=== PATIENT | female | born 1975 | race Caucasian/White ===

== ENCOUNTER 2017-08-05 07:16 | Day surgery (SDC) | payer OTHER ==
[2017-08-05] MEDS ORDERED: IRON SUCROSE INJECTION 100 MG in SODIUM CHLORIDE 100 ML IVPB ONE (09:00)
[2017-08-05] MEDS ORDERED: IRON SUCROSE INJECTION 200 MG in SODIUM CHLORIDE 100 ML IVPB ONE (09:00)
[2017-08-05 12:25] VITALS: TEMP 98.1; BMI 46.4
[2017-08-05 12:50] VITALS: BP 141/96; PULSE 76
== END 2017-08-05 13:28 | disposition home or self-care (01) ==
LOC: JONCNONCHE 07:16 → J7W 10:49 → JONCNONCHE 13:27
PROVIDERS: ATTEND Internal Medicine Hematology & Oncology
PROC: 3E033GC Introduction of Other Therapeutic Substance into Peripheral Vein, Percutaneous Approach (ICD-10-PCS; principal; 2017-08-05)
DX: D50.9 Iron deficiency anemia, unspecified (principal)
CPT/HCPCS: J1756

== ENCOUNTER 2018-03-16 21:51 | Emergency (ER) | payer OTHER ==
--- NOTE | 2018-03-16 21:55 | PDOC ---
Rapid Medical Evaluation Time Seen by Provider: 03/16/18 21:53 Medical Evaluation: Allergies Allergy/AdvReac Type Severity Reaction Status Date / Time No Known Allergies Allergy Verified 07/20/17 20:18 03/16/18 21:53 I have performed a brief in-person evaluation of this patient. The patient presents with a chief complaint of: coughing for 2 weeks Pertinent physical exam findings: Lungs CTAB. Speaking full sentences. I have ordered the following: urine preg, cxr The patient will proceed to the ED for further evaluation. Discharge Disposition - Diagnosis Cough - Referrals - Patient Instructions - Post Discharge Activity
[2018-03-16 22:03] VITALS: BP 146/78; PULSE 90; TEMP 98.9; BMI 46.4
--- NOTE | 2018-03-16 23:43 | PDOC ---
History of Present Illness - General Chief Complaint: Cold Symptoms Stated Complaint: CHEST PAIN Time Seen by Provider: 03/16/18 21:53 History Source: Patient Exam Limitations: No Limitations - History of Present Illness Initial Comments: 03/16/18 23:44 42-year-old woman without significant past medical history presents emergency Department with a dry unproductive cough for the past 2 weeks. Patient has been evaluated by urgent care and her primary doctor and told she has a viral illness. Patient states she is concerned that her cough has not stopped over the past 2 weeks and is seeking a third opinion. She denies any fevers, chills, chest pain, abdominal pain, nausea, vomiting. Past History - Past Medical History Allergies/Adverse Reactions: Allergies Allergy/AdvReac Type Severity Reaction Status Date / Time No Known Allergies Allergy Verified 03/16/18 22:03 Home Medications: Ambulatory Orders Acetaminophen W/ Codeine #3 [Tylenol # 3 -] 1 tab PO HS #4 tablet MDD 1 Benzonatate [Tessalon Pearls -] 200 mg PO TID #42 cap 03/17/18 Anemia: Yes COPD: No - Surgical History Cholecystectomy: Yes (2011) Orthopedic Surgery: Yes (Left wrist 2011) - Suicide/Smoking/Psychosocial Hx Smoking History: Never smoked Hx Alcohol Use: Yes (socially) Drug/Substance Use Hx: No Hx Substance Use Treatment: No Review of Systems - Review of Systems Able to Perform ROS?: Yes Is the patient limited Faroese proficient: No Constitutional: No: Symptoms Reported HEENTM: No: Symptoms Reported Respiratory: Yes: See HPI Cardiac (ROS): No: Symptoms Reported ABD/GI: No: Symptoms Reported : No: Symptoms Reported Musculoskeletal: No: Symptoms Reported Integumentary: No: Symptoms Reported Neurological: No: Symptoms reported Endocrine: No: Symptoms Reported Hematologic/Lymphatic: No: Symptoms Reported *Physical Exam - Vital Signs Last Vital Signs Temp Pulse Resp BP Pulse Ox 98.9 F 90 18 146/78 100 03/16/18 22:01 03/16/18 22:01 03/16/18 22:01 03/16/18 22:01 03/16/18 22:01 - Physical Exam General Appearance: Yes: Appropriately Dressed. No: Apparent Distress HEENT: positive: TMs Normal, Other (cobblestoning present in posterior oropharynx). negative: Pharyngeal Erythema, Tonsillar Exudate, Tonsillar Erythema Neck: positive: Trachea midline, Supple Respiratory/Chest: positive: Lungs Clear, Normal Breath Sounds. negative: Respiratory Distress, Accessory Muscle Use Cardiovascular: positive: Regular Rhythm, Regular Rate. negative: Murmur Gastrointestinal/Abdominal: positive: Normal Bowel Sounds, Soft. negative: Tender Musculoskeletal: positive: Normal Inspection. negative: CVA Tenderness Extremity: positive: Normal Inspection Integumentary: positive: Normal Color, Dry, Warm Neurologic: positive: Alert, Normal Response ED Treatment Course - ADDITIONAL ORDERS Additional order review: Laboratory Results 03/16/18 22:30 Urine HCG, Qual Negative - RADIOLOGY Radiology Studies Ordered: Category Date Time Status CHEST PA & LAT [RAD] Stat Radiology 03/16/18 21:56 Taken Medical Decision Making - Medical Decision Making 03/16/18 23:42 A/P: 42-year-old woman with 2 weeks of dry nonproductive cough Lungs clear to auscultation bilaterally Oropharynx clear without erythema or exudates. Patient not taking any medication. Patient is been seen by her primary doctor in urgent care as well as she has a viral illness and that the cough will resolve. Coughing no correlation with oral intake so less likely related to GERD. She will cobblestoning in the posterior oropharynx this is likely upper respiratory infection with irritated airways related to postnasal mucus drip. Urine , chest x-ray Chest x-ray as read by me: Angles clear. No pneumothorax is identified. No focal consolidations or infiltrates are noted. Cardiac silhouette is within normal limits. 03/17/18 01:04 Patient's cough is improved after receiving Tylenol 3. I will discharge the patient home with prescription for Tylenol 3 for the overnight and Tessalon Perles for daytime. Patient has an appointment with her primary doctor on Tuesday for reevaluation of symptoms. *DC/Admit/Observation/Transfer Diagnosis at time of Disposition: Cough Upper respiratory infection Qualifiers: URI type: unspecified URI Qualified Code(s): J06.9 - Acute upper respiratory infection, unspecified - Discharge Dispostion Disposition: HOME Condition at time of disposition: Fair Decision to Admit order: No - Prescriptions Prescriptions: Acetaminophen W/ Codeine #3 [Tylenol # 3 -] 1 tab PO HS #4 tablet MDD 1 Benzonatate [Tessalon Pearls -] 200 mg PO TID #42 cap - Referrals Referrals: Philipp Gonzalez MD [Primary Care Provider] - - Patient Instructions Additional Instructions: Rest, drink lots of fluids: Teas, water, soups, Pedialyte Saltwater gargles Steamy showers/seem to face break up mucus Avoid contact with others until fevers and cough resolved Lots of handwashing and good hygiene Continue [id number] medications for symptomatic relief Tylenol or Motrin for fever and pain Tylenol No. 3 one tablet at bedtime to help control cough while sleeping. Tessalon Perles 200 mg 3 times a day as needed for cough Followup with private physician in one to 2 days as needed Return to emergency department for worsened symptoms, fevers, dehydration - Post Discharge Activity
--- NOTE | 2018-03-16 23:56 | PDOC ---
*Physical Exam - Vital Signs Last Vital Signs Temp Pulse Resp BP Pulse Ox 98.9 F 90 18 146/78 100 03/16/18 22:01 03/16/18 22:01 03/16/18 22:01 03/16/18 22:01 03/16/18 22:01 ED Treatment Course - ADDITIONAL ORDERS Additional order review: Laboratory Results 03/16/18 22:30 Urine HCG, Qual Negative Medical Decision Making - Medical Decision Making 03/16/18 23:56 agree with care from TOREY Whittington *DC/Admit/Observation/Transfer Diagnosis at time of Disposition: Cough - Referrals Referrals: Philipp Gonzalez MD [Primary Care Provider] - - Patient Instructions - Post Discharge Activity
[2018-03-16] MEDS ORDERED: ACETAMINOPHEN WITH CODEINE 300MG/30MG TABLET PO ONE (23:58)
[2018-03-17] MEDS ORDERED: ACETAMINOPHEN WITH CODEINE 300MG/30MG TABLET ONE ×2 (00:16→00:20)
== END 2018-03-17 01:19 | disposition home or self-care (01) ==
LOC: JER 21:51 → JERFT 21:51 → JER 03-17 01:19
DX: J06.9 Acute upper respiratory infection, unspecified (principal)
CPT/HCPCS: 71046-TC-FY; 84703; 99281-25

== ENCOUNTER 2018-07-14 17:59 | Inpatient (IN) | payer OTHER ==
--- NOTE | 2018-07-14 18:06 | PDOC ---
History of Present Illness - General Chief Complaint: Shortness of Breath Stated Complaint: ASTHMA/FALL Time Seen by Provider: 07/14/18 18:05 - History of Present Illness Initial Comments: Karen Long is a 42yo woman with a PMH of asthma and chronic anemia (cause unclear) who presents with worsening SOB and now lightheadedness for three weeks. She reports that yesterday she became dizzy, her vision darkened, and she fainted when walking up the stairs. She hit the left side of her head, left hip, and left kebede and notes continued soreness and bruising. Ms Long reports that she does not have asthma symptoms most of the year, but always has attacks in the fall since she was a child. Her current episode started about 3 weeks ago and was initially controlled with albuterol nebulizer treatments at home. However, her symptoms have progressively worsened to the point that she has been needing treatments every 45 minutes throughout the day. Within the past few days, she has also developed a productive cough with yellowish sputum. She denies nasal congestion, runny nose, sore throat, fevers, shivering chills, nausea, vomiting, or diarrhea. She has no known sick contacts. 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 Ms Long states that she gets prednisone for asthma exacerbations every fall, and she has been hospitalized multiple times but never intubated. Ms Long additionally reports that she has been feeling fatigued and dizzy over the past few days. She became very lightheaded when walking up the stairs yesterday. Her vision darkened, and she reports losing consciousness and falling to the ground. She struck the left side of her body on the floor including hitting her head. She denies any difficulty walking, focal neurological symptoms, or additional LOC since the fall. She reports that her fall was witnessed by neighbors who helped her afterwards. Past History - Past Medical History Allergies/Adverse Reactions: Allergies Allergy/AdvReac Type Severity Reaction Status Date / Time No Known Allergies Allergy Verified 07/14/18 18:00 Home Medications: Ambulatory Orders Albuterol 0.083% Nebulizer Smitha [Ventolin 0.083% Nebulizer Soln -] 1 neb NEB Q4H PRN 03/20/18 Acetaminophen [Tylenol .Regular Strength -] 650 mg PO Q6H PRN #30 tablet Anemia: Yes Asthma: Yes COPD: No - Surgical History Cholecystectomy: Yes (2011) Orthopedic Surgery: Yes (Left wrist 2011) - Suicide/Smoking/Psychosocial Hx Smoking History: Never smoked Have you smoked in the past 12 months: No Hx Alcohol Use: No Drug/Substance Use Hx: No Substance Use Type: None Hx Substance Use Treatment: No Review of Systems - Review of Systems Comments:: General: No fevers, no chills, no weight or appetite change, no malaise HEENT: No changes in vision, no changes in hearing, no congestion, no sore throat CV: No chest pain, no palpitations, no LE edema. +Syncope Pulm: See HPI GI: No nausea or vomiting, no change in bowel habits, no melena : No frequency, no urgency, no dysuria Musc: No back pain, no joint swelling, no recent injury Skin: No rash, no lesions, no erythema Endo: No excessive thirst, no heat/cold intolerance Heme: No unusual bruising or bleeding, no swollen glands Neuro: No speech changes, no numbness/tingling, no focal weakness Vasc: No claudication Psych: No recent change in mood, no SI or HI *Physical Exam - Physical Exam Comments: General: Uncomfortable but in no acute distress HEENT: PERRL, EOMI, MMM, voice normal, normal neck ROM, no LAD. L parietal head with tender, edematous area approx 5cm in diameter. No abrasion, lesion or bleeding. Cards:Tachycardic and regular Pulm: Mildly tachypnic on room air. Lungs clear b/l without active wheezing or crackles appreciated. Distant breath sounds. Abd: Soft, nontender, nondistended : No CVA tenderness Ext: Bruising to L kebede and L forearm. L posterior hip TTP. No abrasions or lacerations. No LE edema. ROM intact. Strength 5/5 and equal bilaterally Vasc: Extremities WWP. Skin: Bruising to L kebede and L forearm Neuro: A&Ox3, CN grossly intact, normal speech, motor/sensory grossly intact and symmetric Psych: Mood appropriate to situation Procedures - Bedside Ultrasound Bedside Ultrasound: Skin Other: IV placement. 20g in R AC ED Treatment Course - LABORATORY CBC & Chemistry Diagram: 07/14/18 19:54 07/14/18 19:54 Medical Decision Making - Medical Decision Making 07/14/18 20:09 Karen Long is a 42yo woman with a PMH of asthma and chronic anemia who presents with 3 weeks of worsening SOB and now with lightheadedness and an episode of syncope yesterday. - Consistent with previous episodes of asthma exacerbation and with previous symptomatic anemia, per patient - Given productive cough, also concerning for viral or bacterial URI though currently afebrile - Reporting some chest discomfort; need to r/o ACS as a cause of syncope and SOB - CBC, CMP, trop, UA, urine preg, T&S, CXR, EKG, and flu swab ordered - Duonebs, solumedrol, acetaminophen for symptoms - Re-evaluate following nebs 07/14/18 21:03 - Lungs clear to ausculatation b/l with good breath sounds following nebs - Continue tachycardia to 120's. Sats in mid-90's on RA - Slight leukocytosis to 13, at baseline - Hgb 7.7 at baseline - No clear cause of tachycardia, SOB, low O2 sats, syncope. No recent travel, immobilization, use of OCP's, personal CA history but CT chest with contrast ordered to r/o PE. - CT head due to palpable edema on L parietal skull - Xray L pelvis to r/o fracture. Pt able to point to one location likely along PSIS - 2mg morphine ordered for continued pain 05/29 after acetaminophen 07/14/18 22:28 - IV in left hand could not be used for IV contrast - US guided 20g IV placed in R AC. Flushes easily 07/14/18 23:26 - CT head negative - CT chest with FAY pneumonia - Ceftriaxone and azithromycin ordered - Page to hospitalist service for admission for community acquired pneumonia and syncope To be admitted to medicine service under Dr Airas. Spoke to Dr Bates. Seen and discussed with Dr Beatty. Sindy Ross PGY1 *DC/Admit/Observation/Transfer Diagnosis at time of Disposition: Syncope Qualifiers: Syncope type: unspecified Qualified Code(s): R55 - Syncope and collapse - Discharge Dispostion Decision to Admit order: Yes - Referrals - Patient Instructions - Post Discharge Activity
[2018-07-14] MEDS ORDERED: ALBUTEROL SO4 2.5/IPRATROPIUM 0.5 INH SOL 3 ML VIAL.NEB. NEB ONE ×2 (18:29→18:38)
[2018-07-14] MEDS ORDERED: ACETAMINOPHEN 500 MG TABLET (FP) PO ONE (18:36)
[2018-07-14] MEDS ORDERED: methylPREDNISolone NA SUCC 125 MG/2 ML VIAL IVPB ONE (18:36)
[2018-07-14] MEDS ORDERED: methylPREDNISolone NA SUCC 125 MG/2 ML VIAL ONE (18:38)
[2018-07-14 20:04] LABS: BASO % 0.5 % (0-2.0); EOS % 0.8 % (0-4.5); HEMATOCRIT 25.4 % (32.4-45.2); HEMOGLOBIN 7.7 GM/dL (10.7-15.3); LYMPH % 13.1 % (8-40); MCHC 30.2 g/dl (32.0-36.0); MEAN CELL VOLUME 72.9 fl (80-96); MEAN PLT VOLUME 6.8 fl (7.5-11.1); MONO % 3.9 % (3.8-10.2); NEUT % 81.7 % (42.8-82.8); PLATELET COUNT 308 K/MM3 (134-434); RBC 3.49 M/mm3 (3.60-5.2); RDW 18.7 % (11.6-15.6); WHITE BLOOD COUNT 13.2 K/mm3 (4.0-10.0)
--- NOTE | 2018-07-14 20:33 | PDOC ---
Attending Attestation - HPI HPI: 07/14/18 21:36 The patient is a 42 year old female with a significant PMH of asthma and anemia who presents to the emergency department with shortness of breath for 3 weeks. The patient reports that she has been experiencing some associated cough for 2 days as well. She reports that she had a syncopal episode yesterday with a prior episode of lightheadedness and weakness when walking up a stair near her home. The patient reports loc and hitting her head. She denies any follow up since the incident. She denies any other symptoms. She denies any fever, chills, nausea, vomiting, diarrhea, or urinary symptoms. She denies any headache , recent travel, leg pain , smoking or vomiting. The patient denies any other complaints. - Physicial Exam PE: 07/14/18 21:36 GENERAL: Awake, alert, and fully oriented, in no acute distress HEAD: No signs of trauma EYES: PERRLA, EOMI, sclera anicteric, conjunctiva clear ENT: Auricles normal inspection, hearing grossly normal, nares patent, oropharynx clear without exudates. Moist mucosa NECK: Normal ROM, supple, no lymphadenopathy, JVD, or masses LUNGS: Breath sounds equal, clear to auscultation bilaterally. No wheezes, and no crackles HEART:(+) tachy. Regular rhythm, normal S1 and S2, no murmurs, rubs or gallops ABDOMEN: obese. Soft, nontender, normoactive bowel sounds. No guarding, no rebound. No masses EXTREMITIES: Normal range of motion, no edema. No clubbing or cyanosis. No cords, erythema, or tenderness NEUROLOGICAL: Cranial nerves II through XII grossly intact. Normal speech, normal gait SKIN: Warm, Dry, normal turgor, no rashes or lesions noted. Documentation prepared by Cira Sharif, acting as medical voucher clerk for Tram Beatty MD <Cira Sharif - Last Filed: 07/14/18 21:36> - Resident Resident Name: Sindy Ross - ED Attending Attestation I have performed the following: I have examined & evaluated the patient, The case was reviewed & discussed with the resident, I agree w/resident's findings & plan, Exceptions are as noted - Medical Decision Making 07/14/18 20:32 I, Dr. Tram Beatty, DO, attest that this document has been prepared under my direction and personally reviewed by me in its entirety. I further attest, that it accurately reflects all work, treatment, procedures and medical decision -making performed by me. 07/14/18 21:01 a/p: 42yo female with a syncopal episode yesterday and sob/cp today -pt states hx of chronic anemia but has never had a syncopal episode before -states she feels palpitations and chest pain - thought it was her asthma -no wheezing on exam -clear lungs -concern given tachycardia, chest pain, and syncope for PE -will send labs, ekg, cxr, CT PE -will give nebs and steroids for poss asthma exacerbation -will continue to monitor 07/14/18 23:23 pt with PNA on ct will start abx, will send cultures will admit for tachycardia and pna microblog sent to [facility] for admission 07/15/18 00:[address] will admit for pna, syncope, asthma exacerbation 07/15/18 00:09 resident discussed the case with IM who accepts pt to service <Tram Beatty - Last Filed: 07/15/18 00:09> Heart Score/ECG Review - ECG Intrepretation Comment:: 07/14/18 21:04 sinus tach at 101, nl axis, nl interval, lvh, no acute st/t wave findings <Tram Beatty - Last Filed: 07/15/18 00:09>
[2018-07-14 20:39] LABS: ALBUMIN 3.1 g/dl (3.4-5.0); ALK PHOS 87 U/L (45-117); ANION GAP 12 MMOL/L (8-16); BILIRUBIN,TOTAL 0.2 mg/dL (0.2-1); BLOOD UREA NITROGEN 18 mg/dL (7-18); CALCIUM 8.1 mg/dL (8.5-10.1); CHLORIDE 110 mmol/L (98-107); CO2 22 mmol/L (21-32); CREATININE 0.5 mg/dL (0.55-1.3); GLUCOSE,RANDOM 108 mg/dL (74-106); POTASSIUM 3.8 mmol/L (3.5-5.1); SGOT/AST 14 U/L (15-37); SGPT/ALT 17 U/L (13-61); SODIUM 144 mmol/L (136-145); TOT PROT 6.7 g/dl (6.4-8.2)
[2018-07-14 20:51] LABS: URINE APPEARANCE CLEAR; URINE BILIRUBIN NEGATIVE (<2.0 mg/dL); URINE COLOR YELLOW; URINE GLUCOSE (UA) NEGATIVE (NEGATIVE); URINE KETONE NEGATIVE (NEGATIVE); URINE LEUK ESTERASE NEGATIVE (NEGATIVE); URINE NITRITE NEGATIVE (NEGATIVE); URINE PROTEIN NEGATIVE (NEGATIVE); URINE UROBILINOGEN NEGATIVE mg/dL (0.2-1.0)
[2018-07-14 20:52] LABS: HCG,QUALITATIVE URINE Negative
[2018-07-14] MEDS ORDERED: morphine CARPU-JECT 2 MG/1 ML DISP.SYRIN IVPUSH ONE (21:03)
[2018-07-14] MEDS ORDERED: MORPHINE SULFATE 2 MG/ML VIAL ONE (21:07)
[2018-07-14] MEDS ORDERED: CEFTRIAXONE 1,000 MG in DEXTROSE 5%-WATER - 50 ML IVPB ONE (23:22)
[2018-07-14] MEDS ORDERED: AZITHROMYCIN IVPB 500 MG in DEXTROSE 5%-WATER - 250 ML IVPB ONE (23:22)
[2018-07-14] MEDS ORDERED: SODIUM CHLORIDE 0.9% 1000 ML INFUS.BAG IV ONE (23:23)
[2018-07-15] MEDS ORDERED: AZITHROMYCIN IVPB 500 MG/250 ML BAG IVPB ONE (00:19)
[2018-07-15] MEDS ORDERED: CEFTRIAXONE 1 GM/50 ML BAG ONE ×2 (00:19→09:11)
--- NOTE | 2018-07-15 04:05 | PN ---
Teaching Attending Note Name of Resident: Lamberto Bates ATTENDING PHYSICIAN STATEMENT I saw and evaluated the patient. I reviewed the resident's note and discussed the case with the resident. I agree with the resident's findings and plan as documented. SUBJECTIVE: OBJECTIVE: ASSESSMENT AND PLAN: this is a 42 y/o F with PMH asthma who presented to ED with asthma exacerbation and syncope. #Asthma -well controlled at this moment -no wheezing appreciated -Nebs prn #Syncope possible due to vasovagal patient was coughing prior to the episode - monitor on tele neurology evaluation #Chronic anemia -at baseline
--- NOTE | 2018-07-15 04:21 | HP ---
CHIEF COMPLAINT: SOB, LOC PCP: HISTORY OF PRESENT ILLNESS: Pt is a 42 y/o F with PMH Asthma, chronic anemia who presented to ED after a syncople episode while climbing one step outside her house. Pt states she got suddenly and dizzy lost consciousness. Pt has hx of asthma which she states acts up only during the fall season. Throughout the year, she does not use her inhaler, and in fall she needs it frequently; this has been her pattern for many years. This season, she has not been able to control her asthma symptoms despite using her nebulizer every 45 minutes at home. Pt recently went to [facility] and was prescribed prednisone and cuca-nase. 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 She was recently treated (03/2018) for a cellulitis and states that her treatment course was complete. ER course was notable for: (1) wbc 13, morphine, tylenol, solumedrol, duoneb, NS, Azithro, Rocephin (2) (3) Recent Travel: denies PAST MEDICAL HISTORY: as above PAST SURGICAL HISTORY: Social History: Smoking: denies Alcohol: denies Drugs: denies Family History: Allergies No Known Allergies Allergy (Verified 07/14/18 18:00) HOME MEDICATIONS: Home Medications Medication Instructions Recorded Albuterol 0.083% Nebulizer Smitha 1 neb NEB Q4H PRN 03/20/18 [Ventolin 0.083% Nebulizer Soln -] Acetaminophen [Tylenol .Regular 650 mg PO Q6H PRN #30 tablet 03/27/18 Strength -] REVIEW OF SYSTEMS CONSTITUTIONAL: Absent: fever, chills, diaphoresis, generalized weakness, malaise, loss of appetite, weight change HEENT: Absent: rhinorrhea, nasal congestion, throat pain, throat swelling, difficulty swallowing, mouth swelling, ear pain, eye pain, visual changes CARDIOVASCULAR: Absent: chest pain, syncope, palpitations, irregular heart rate, lightheadedness , peripheral edema RESPIRATORY: Absent: cough, shortness of breath, dyspnea with exertion, orthopnea, wheezing, stridor, hemoptysis GASTROINTESTINAL: Absent: abdominal pain, abdominal distension, nausea, vomiting, diarrhea, constipation, melena, hematochezia GENITOURINARY: Absent: dysuria, frequency, urgency, hesitancy, hematuria, flank pain, genital pain MUSCULOSKELETAL: Absent: myalgia, arthralgia, joint swelling, back pain, neck pain SKIN: Absent: rash, itching, pallor HEMATOLOGIC/IMMUNOLOGIC: Absent: easy bleeding, easy bruising, lymphadenopathy, frequent infections ENDOCRINE: Absent: unexplained weight gain, unexplained weight loss, heat intolerance, cold intolerance NEUROLOGIC: Absent: headache, focal weakness or paresthesias, dizziness, unsteady gait, seizure, mental status changes, bladder or bowel incontinence PSYCHIATRIC: Absent: anxiety, depression, suicidal or homicidal ideation, hallucinations. PHYSICAL EXAMINATION Vital Signs - 24 hr 07/14/18 07/14/18 07/14/18 18:05 18:46 18:50 Temperature 97.9 F Pulse Rate 113 H Respiratory 20 Rate Blood Pressure 125/48 L O2 Sat by Pulse 99 97 97 Oximetry (%) 07/14/18 19:29 Temperature Pulse Rate Respiratory Rate Blood Pressure O2 Sat by Pulse 99 Oximetry (%) Gen: NAD HEENT: NCAT, PERRL, EOMI Neck: supple Cardio: rrr, normal s1s2, no m/r/g Pulm: cta b/l abd: soft nontender Laboratory Results - last 24 hr 07/14/18 07/14/18 07/14/18 19:54 19:54 19:54 WBC 13.2 H RBC 3.49 L Hgb 7.7 L Hct 25.4 L MCV 72.9 L MCH 22.0 L MCHC 30.2 L RDW 18.7 H Plt Count 308 D MPV 6.8 L Absolute Neuts (auto) 10.7 H Neutrophils % 81.7 Lymphocytes % 13.1 D Monocytes % 3.9 Eosinophils % 0.8 Basophils % 0.5 Nucleated RBC % 0 Sodium 144 Potassium 3.8 Chloride 110 H Carbon Dioxide 22 Anion Gap 12 BUN 18 Creatinine 0.5 L Creat Clearance w eGFR > 60 Random Glucose 108 H Calcium 8.1 L Total Bilirubin 0.2 AST 14 L ALT 17 Alkaline Phosphatase 87 Creatine Kinase 70 Troponin I < 0.02 Total Protein 6.7 Albumin 3.1 L Urine Color Urine Appearance Urine pH Ur Specific [place] Urine Protein Urine Glucose (UA) Urine Ketones Urine Blood Urine Nitrite Urine Bilirubin Urine Urobilinogen Ur Leukocyte Esterase Urine HCG, Qual Blood Type A POSITIVE Antibody Screen Negative 07/14/18 20:28 WBC RBC Hgb Hct MCV MCH MCHC RDW Plt Count MPV Absolute Neuts (auto) Neutrophils % Lymphocytes % Monocytes % Eosinophils % Basophils % Nucleated RBC % Sodium Potassium Chloride Carbon Dioxide Anion Gap BUN Creatinine Creat Clearance w eGFR Random Glucose Calcium Total Bilirubin AST ALT Alkaline Phosphatase Creatine Kinase Troponin I Total Protein Albumin Urine Color Yellow Urine Appearance Clear Urine pH 5.0 Ur Specific [place] 1.026 Urine Protein Negative Urine Glucose (UA) Negative Urine Ketones Negative Urine Blood Negative Urine Nitrite Negative Urine Bilirubin Negative Urine Urobilinogen Negative Ur Leukocyte Esterase Negative Urine HCG, Qual Negative Blood Type Antibody Screen ASSESSMENT/PLAN: Pt is a 42 y/o F with PMH asthma who presented to ED with asthma exacerbation and syncope. Pt is on obs. #Syncope -Head ct unremarkable -EKG unremarkable -dizziness has resolved #Asthma -well controlled at this moment -no wheezing appreciated -Nebs prn #Chronic anemia -at baseline #FEN -not on fluids -lytes wnl -reg diet #PPx -HSQ #Dispo -Obs Lamberto Bates MD PGY-2 IM Visit type - Emergency Visit Emergency Visit: Yes ED Registration Date: 07/15/18 Care time: The patient presented to the Emergency Department on the above date and was hospitalized for further evaluation of their emergent condition. - New Patient This patient is new to me today: Yes Date on this admission: 07/15/18 - Critical Care Critical Care patient: No
[2018-07-15] MEDS: HEPARIN NA (PORCINE) 5,000 UNITS/ML 1ML VIAL SQ SCH ×3 (04:58→21:03)
[2018-07-15] MEDS ORDERED: HEPARIN NA (PORCINE) 5,000 UNITS/ML 1ML VIAL ONE ×2 (05:00→14:09)
[2018-07-15 06:09] LABS: BASO % 0.1 % (0-2.0); HEMATOCRIT 26.3 % (32.4-45.2); LYMPH % 4.6 % (8-40); MCH 22.3 pg (25.7-33.7); MCHC 30.3 g/dl (32.0-36.0); MEAN CELL VOLUME 73.6 fl (80-96); MEAN PLT VOLUME 7.1 fl (7.5-11.1); MONO % 0.8 % (3.8-10.2); NEUT % 94.5 % (42.8-82.8); PLATELET COUNT 276 K/MM3 (134-434); RBC 3.57 M/mm3 (3.60-5.2); RDW 18.7 % (11.6-15.6); WHITE BLOOD COUNT 9.7 K/mm3 (4.0-10.0)
[2018-07-15 06:18] LABS: ALBUMIN 2.9 g/dl (3.4-5.0); ALK PHOS 84 U/L (45-117); ANION GAP 10 MMOL/L (8-16); BILIRUBIN,TOTAL 0.1 mg/dL (0.2-1); BLOOD UREA NITROGEN 14 mg/dL (7-18); CALCIUM 8.2 mg/dL (8.5-10.1); CHLORIDE 111 mmol/L (98-107); CO2 22 mmol/L (21-32); CREATININE 0.5 mg/dL (0.55-1.3); GLUCOSE,RANDOM 136 mg/dL (74-106); POTASSIUM 4.6 mmol/L (3.5-5.1); SGOT/AST 13 U/L (15-37); SGPT/ALT 16 U/L (13-61); SODIUM 143 mmol/L (136-145); TOT PROT 6.7 g/dl (6.4-8.2)
--- NOTE | 2018-07-15 08:15 | PN ---
Progress Note (short form) - Note Progress Note: Vital Signs Temperature 99.1 F 07/15/18 07:59 Pulse Rate 115 H 07/15/18 07:59 Respiratory Rate 18 07/15/18 07:53 Blood Pressure 121/87 07/15/18 07:59 O2 Sat by Pulse Oximetry (%) 99 07/15/18 07:59 GENERAL: Awake, alert, and fully oriented, in no acute distress HEAD: No signs of trauma EYES: PERRLA, EOMI, sclera anicteric, conjunctiva clear ENT: Auricles normal inspection, hearing grossly normal, oropharynx clear without exudates. Moist mucosa NECK: Normal ROM, supple, no lymphadenopathy, JVD, or masses LUNGS: Breath sounds equal, clear to auscultation bilaterally. No wheezes, and no crackles HEART:(+) tachy. Regular rhythm, normal S1 and S2, no murmurs, rubs or gallops ABDOMEN: obese. Soft, nontender, normoactive bowel sounds. No guarding, no rebound. No masses EXTREMITIES: Normal range of motion, no edema. No clubbing or cyanosis. No cords, erythema, or tenderness NEUROLOGICAL: Cranial nerves II through XII grossly intact. Normal speech, normal gait SKIN: Warm, Dry, normal turgor, no rashes or lesions noted. CBCD WBC 9.7 K/mm3 (4.0-10.0) 07/15/18 05:12 RBC 3.57 M/mm3 (3.60-5.2) L 07/15/18 05:12 Hgb 8.0 GM/dL (10.7-15.3) L 07/15/18 05:12 Hct 26.3 % (32.4-45.2) L 07/15/18 05:12 MCV 73.6 fl (80-96) L 07/15/18 05:12 MCHC 30.3 g/dl (32.0-36.0) L 07/15/18 05:12 RDW 18.7 % (11.6-15.6) H 07/15/18 05:12 Plt Count 276 K/MM3 (134-434) 07/15/18 05:12 MPV 7.1 fl (7.5-11.1) L 07/15/18 05:12 CMP Sodium 143 mmol/L (136-145) 07/15/18 05:12 Potassium 4.6 mmol/L (3.5-5.1) 07/15/18 05:12 Chloride 111 mmol/L (98-107) H 07/15/18 05:12 Carbon Dioxide 22 mmol/L (21-32) 07/15/18 05:12 Anion Gap 10 MMOL/L (8-16) 07/15/18 05:12 BUN 14 mg/dL (7-18) 07/15/18 05:12 Creatinine 0.5 mg/dL (0.55-1.3) L 07/15/18 05:12 Creat Clearance w eGFR > 60 (>60) 07/15/18 05:12 Random Glucose 136 mg/dL (74-106) H 07/15/18 05:12 Calcium 8.2 mg/dL (8.5-10.1) L 07/15/18 05:12 Total Bilirubin 0.1 mg/dL (0.2-1) L 07/15/18 05:12 AST 13 U/L (15-37) L 07/15/18 05:12 ALT 16 U/L (13-61) 07/15/18 05:12 Alkaline Phosphatase 84 U/L (45-117) 07/15/18 05:12 Total Protein 6.7 g/dl (6.4-8.2) 07/15/18 05:12 Albumin 2.9 g/dl (3.4-5.0) L 07/15/18 05:12 CARDIAC ENZYMES Creatine Kinase 70 IU/L (26-192) 07/14/18 19:54 Troponin I < 0.02 ng/ml (0.00-0.05) 07/14/18 19:54 Current Medications Generic Name Dose Route Start Last Admin Trade Name Freq PRN Reason Stop Dose Admin Albuterol Sulfate 1 amp 07/15/18 04:01 Ventolin 0.083% Nebulizer Soln - NEB Q4H PRN SHORT OF BREATH/WHEEZING Heparin Sodium (Porcine) 5,000 unit 07/15/18 04:15 07/15/18 04:58 Heparin - SQ 5,000 unit TID [facility] Administration Azithromycin 250 mg/ Dextrose 250 mls @ 250 mls/hr 07/15/18 10:00 IVPB DAILY [facility] Ceftriaxone Sodium 1 gm/ 50 mls @ 100 mls/hr 07/15/18 10:00 Dextrose IVPB DAILY [facility] Protocol Home Medications Medication Instructions Recorded Albuterol 0.083% Nebulizer [place] 1 neb NEB Q4H PRN 03/20/18 [Ventolin 0.083% Nebulizer Soln -] Acetaminophen [Tylenol .Regular 650 mg PO Q6H PRN #30 tablet 03/27/18 Strength -] Assessment/Plan: Pt is a 42 y/o F with PMH asthma who presented to ED with asthma exacerbation and syncope. Pt is on obs. #Syncope: Head ct unremarkable -EKG unremarkable -dizziness has resolved #Asthma: -well controlled at this moment -no wheezing appreciated -Nebs prn #Chronic anemia -at baseline DVT Px: HSQ #Dispo -Obs
--- NOTE | 2018-07-15 08:57 | HOSP ---
Subjective - Review of Symptoms Events since last encounter: Patient is comfortable , still feeling short of breath Vital Signs Temperature 99.1 F 07/15/18 07:59 Pulse Rate 115 H 07/15/18 07:59 Respiratory Rate 18 07/15/18 07:53 Blood Pressure 121/87 07/15/18 07:59 O2 Sat by Pulse Oximetry (%) 99 07/15/18 07:59 GENERAL: Awake, alert, and fully oriented, in no acute distress HEAD: No signs of trauma EYES: PERRLA, EOMI, sclera anicteric, conjunctiva clear ENT: Auricles normal inspection, hearing grossly normal, oropharynx clear without exudates. Moist mucosa NECK: Normal ROM, supple, no lymphadenopathy, JVD, or masses LUNGS: decreased Breath sounds bilaterally, clear to auscultation bilaterally. No wheezes, and no crackles HEART:(+) tachy. Regular rhythm, normal S1 and S2, no murmurs, rubs or gallops ABDOMEN: obese. Soft, nontender, normoactive bowel sounds. No guarding, no rebound. No masses EXTREMITIES: Normal range of motion, no edema. No clubbing or cyanosis. No cords, erythema, or tenderness NEUROLOGICAL: Cranial nerves II through XII grossly intact. Normal speech, normal gait SKIN: Warm, Dry, normal turgor, no rashes or lesions noted. CBCD WBC 9.7 K/mm3 (4.0-10.0) 07/15/18 05:12 RBC 3.57 M/mm3 (3.60-5.2) L 07/15/18 05:12 Hgb 8.0 GM/dL (10.7-15.3) L 07/15/18 05:12 Hct 26.3 % (32.4-45.2) L 07/15/18 05:12 MCV 73.6 fl (80-96) L 07/15/18 05:12 MCHC 30.3 g/dl (32.0-36.0) L 07/15/18 05:12 RDW 18.7 % (11.6-15.6) H 07/15/18 05:12 Plt Count 276 K/MM3 (134-434) 07/15/18 05:12 MPV 7.1 fl (7.5-11.1) L 07/15/18 05:12 CMP Sodium 143 mmol/L (136-145) 07/15/18 05:12 Potassium 4.6 mmol/L (3.5-5.1) 07/15/18 05:12 Chloride 111 mmol/L (98-107) H 07/15/18 05:12 Carbon Dioxide 22 mmol/L (21-32) 07/15/18 05:12 Anion Gap 10 MMOL/L (8-16) 07/15/18 05:12 BUN 14 mg/dL (7-18) 07/15/18 05:12 Creatinine 0.5 mg/dL (0.55-1.3) L 07/15/18 05:12 Creat Clearance w eGFR > 60 (>60) 07/15/18 05:12 Random Glucose 136 mg/dL (74-106) H 07/15/18 05:12 Calcium 8.2 mg/dL (8.5-10.1) L 07/15/18 05:12 Total Bilirubin 0.1 mg/dL (0.2-1) L 07/15/18 05:12 AST 13 U/L (15-37) L 07/15/18 05:12 ALT 16 U/L (13-61) 07/15/18 05:12 Alkaline Phosphatase 84 U/L (45-117) 07/15/18 05:12 Total Protein 6.7 g/dl (6.4-8.2) 07/15/18 05:12 Albumin 2.9 g/dl (3.4-5.0) L 07/15/18 05:12 CARDIAC ENZYMES Creatine Kinase 70 IU/L (26-192) 07/14/18 19:54 Troponin I < 0.02 ng/ml (0.00-0.05) 07/14/18 19:54 Current Medications Generic Name Dose Route Start Last Admin Trade Name Freq PRN Reason Stop Dose Admin Albuterol Sulfate 1 amp 07/15/18 04:01 Ventolin 0.083% Nebulizer Soln - NEB Q4H PRN SHORT OF BREATH/WHEEZING Heparin Sodium (Porcine) 5,000 unit 07/15/18 04:15 07/15/18 04:58 Heparin - SQ 5,000 unit TID BLAD[facility] Administration Azithromycin 250 mg/ Dextrose 250 mls @ 250 mls/hr 07/15/18 10:00 IVPB DAILY [facility] Ceftriaxone Sodium 1 gm/ 50 mls @ 100 mls/hr 07/15/18 10:00 Dextrose IVPB DAILY [facility] Protocol Home Medications Medication Instructions Recorded Albuterol 0.083% Nebulizer [place] 1 neb NEB Q4H PRN 03/20/18 [Ventolin 0.083% Nebulizer Soln -] Acetaminophen [Tylenol .Regular 650 mg PO Q6H PRN #30 tablet 03/27/18 Strength -] Assessment/Plan: Pt is a 42 y/o F with PMH asthma who presented to ED with asthma exacerbation and syncope. #Acute Asthma Exacerbation on steroid continue, neb treatments, Rocephin/ zithromax # Pneumonia on Rocephin/Zithromax IV # Syncope :Head ct unremarkable, no further dizziness #Morbid Obesity diet recommended #Chronic anemia at baseline DVT Px: HSQ As per pulmonary; monitor peak flow; add singulair when ready for discharge, should be on LABA/ICS and singulair Physical Examination Vital Signs: Vital Signs Temperature 99.1 F 07/15/18 07:59 Pulse Rate 115 H 07/15/18 07:59 Respiratory Rate 18 07/15/18 07:53 Blood Pressure 121/87 07/15/18 07:59 O2 Sat by Pulse Oximetry (%) 99 07/15/18 07:59 Labs: CBC, BMP 07/15/18 05:12 07/15/18 05:12
[2018-07-15] MEDS: CEFTRIAXONE 1 GM in DEXTROSE 5%-WATER - 50 ML IVPB SCH (09:11)
[2018-07-15] MEDS ORDERED: ACETAMINOPHEN 325 MG TABLET (FP) ONE (09:11)
[2018-07-15] MEDS: ACETAMINOPHEN 325 MG TABLET (FP) PO PRN (09:12)
[2018-07-15] MEDS: AZITHROMYCIN IVPB 250 MG in DEXTROSE 5%-WATER - 250 ML IVPB SCH (10:41)
[2018-07-15 11:14] LABS: ANISOCYTOSIS 2+; MACROCYTOSIS 0; OVALOCYTE 1+; PLATELET ESTIMATE NORMAL; TEAR DROP CELLS 1+
[2018-07-15] MEDS ORDERED: ALBUTEROL SO4 0.083% IH SOL 2.5 MG/3 ML VIAL.NEB. NEB ONE (11:17)
[2018-07-15] MEDS: ALBUTEROL SO4 0.083% IH SOL 2.5 MG/3 ML VIAL.NEB. NEB PRN ×2 (11:24→21:38)
--- NOTE | 2018-07-15 14:59 | EKG ---
Test Reason : Blood Pressure : / mmHG Vent. Rate : 101 BPM Atrial Rate : 101 BPM P-R Int : 142 ms QRS Dur : 074 ms QT Int : 336 ms P-R-T Axes : 044 -02 015 degrees QTc Int : 435 ms SINUS TACHYCARDIA MODERATE VOLTAGE CRITERIA FOR LVH, MAY BE NORMAL VARIANT BORDERLINE ECG WHEN COMPARED WITH ECG OF 20-MAR-2018 05:21, NO SIGNIFICANT CHANGE WAS FOUND Confirmed by MD Oralia, Stephen ([id number]) on 07/15/2018 2:59:21 PM Referred By: Confirmed By:Stephen Barton MD
--- NOTE | 2018-07-15 15:15 | CON.PULM ---
Consult Consult Specialty:: PULMONARY Referred by:: Dr. Ron Reason for Consultation:: asthma - History of Present Illness Chief Complaint: shortness of breath History of Present Illness: 42yo female with h/o asthma, anemia who was admitted after syncopal episode. States she has been feeling short of breath for the past 3 weeks. No chest pain or palpitations. No fevers, chills or sweats. Usually has an exacerbation around this time of year and has been worse ever since she moved to [place] from [place]. Has been hospitalized about once a year since she has been in [place] and on prednisone once/year. Never intubated. Only maintained on albuterol MDI and nebulizers. She does not know her peak flow. 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 No pets at home. - History Source History Provided By: Patient, Medical Record Limitations to Obtaining History: No Limitations - Past Medical History Pulmonary: Yes: Asthma ...LMP: 08/04/17 Additional Medical History: morbid obesity - Alcohol/Substance Use Hx Alcohol Use: No - Smoking History Smoking history: Never smoked Have you smoked in the past 12 months: No - Social History History of Recent Travel: No Home Medications - Allergies Allergies/Adverse Reactions: Allergies Allergy/AdvReac Type Severity Reaction Status Date / Time No Known Allergies Allergy Verified 07/14/18 18:00 - Home Medications Home Medications: Ambulatory Orders Albuterol 0.083% Nebulizer [place] [Ventolin 0.083% Nebulizer Soln -] 1 neb NEB Q4H PRN 03/20/18 Acetaminophen [Tylenol .Regular Strength -] 650 mg PO Q6H PRN #30 tablet Review of Systems - Review of Systems Constitutional: reports: Weakness. denies: Chills, Fever Eyes: denies: Recent Change in Vision HENT: denies: Nasal Congestion, Throat Pain Neck: denies: Stiffness, Tenderness Cardiovascular: reports: Shortness of Breath. denies: Chest Pain, Edema, Palpitations Respiratory: reports: Cough, SOB on Exertion, Wheezing. denies: Hemoptysis Gastrointestinal: denies: Abdominal Pain, Nausea, Vomiting Genitourinary: denies: Dysuria, Hematuria Neurological: denies: Dizziness, Headache Endocrine: denies: Unexplained Weight Loss Physical Exam Vital Sings: Vital Signs Temperature 98.5 F 07/15/18 10:29 Pulse Rate 98 H 07/15/18 10:29 Respiratory Rate 18 07/15/18 11:13 Blood Pressure 129/83 07/15/18 10:29 O2 Sat by Pulse Oximetry (%) 99 07/15/18 11:13 Constitutional: Yes: Calm Eyes: Yes: Conjunctiva Clear, EOM Intact HENT: Yes: Atraumatic, Normocephalic Neck: Yes: Supple, Trachea Midline Cardiovascular: Yes: Regular Rate and Rhythm Respiratory: Yes: Regular, Diminished (decreased breath sounds at the bases) ...Clubbing: No Gastrointestinal: Yes: Normal Bowel Sounds, Soft. No: Tenderness Edema: Yes Neurological: Yes: Alert, Oriented Labs: CBC, BMP 07/15/18 05:12 07/15/18 05:12 Imaging - Results Chest X-ray: Report Reviewed, Image Reviewed Cat Scan: Report Reviewed, Image Reviewed (FAY infiltrate) Problem List - Problems (1) Acute asthma exacerbation Code(s): J45.901 - UNSPECIFIED ASTHMA WITH (ACUTE) EXACERBATION (2) Pneumonia Code(s): J18.9 - PNEUMONIA, UNSPECIFIED ORGANISM (3) Syncope Code(s): R55 - SYNCOPE AND COLLAPSE Qualifiers: Syncope type: unspecified Qualified Code(s): R55 - Syncope and collapse (4) Morbid obesity Code(s): E66.01 - MORBID (SEVERE) OBESITY DUE TO EXCESS CALORIES Assessment/Plan Acute Asthma Exacerbation Pneumonia Syncope Morbid Obesity - continue medrol 40mg q8h - can likely change steroids to PO prednisone 40mg daily in AM if continues to improve - inhaled bronchodilators - monitor peak flow - add singulair - continue antibiotics - f/u cultures - when ready for discharge, should be on LABA/ICS and singulair - DVT prophylaxis Thank you for this consult Gregorio Solis MD
[2018-07-15] MEDS ORDERED: methylPREDNISolone NA SUCC 40 MG/1 ML VIAL ONE (16:10)
[2018-07-15] MEDS: methylPREDNISolone NA SUCC 40 MG/1 ML VIAL IVPUSH SCH ×2 (16:11→18:31)
[2018-07-15 18:23] VITALS: BMI 48.9
[2018-07-15] MEDS ORDERED: IBUPROFEN 400 MG TABLET (FP) PO ONE (20:45)
[2018-07-15] MEDS: MONTELUKAST NA 10 MG TABLET PO SCH (21:03)
[2018-07-16] MEDS: methylPREDNISolone NA SUCC 40 MG/1 ML VIAL IVPUSH SCH ×3 (02:31→17:20)
[2018-07-16] MEDS: HEPARIN NA (PORCINE) 5,000 UNITS/ML 1ML VIAL SQ SCH ×3 (06:37→22:07)
[2018-07-16 08:42] LABS: HEMATOCRIT 26.5 % (32.4-45.2); HEMOGLOBIN 7.9 GM/dL (10.7-15.3); MCH 21.9 pg (25.7-33.7); MCHC 29.8 g/dl (32.0-36.0); MEAN CELL VOLUME 73.2 fl (80-96); MEAN PLT VOLUME 7.2 fl (7.5-11.1); PLATELET COUNT 352 K/MM3 (134-434); RBC 3.62 M/mm3 (3.60-5.2); RDW 18.8 % (11.6-15.6)
[2018-07-16] MEDS ORDERED: PT OWN MED DRAWER 7, Y5N ONE ×2 (09:26→10:00)
[2018-07-16 10:11] LABS: ANION GAP 11 MMOL/L (8-16); BLOOD UREA NITROGEN 15 mg/dL (7-18); CALCIUM 8.5 mg/dL (8.5-10.1); CHLORIDE 111 mmol/L (98-107); CO2 20 mmol/L (21-32); CREATININE 0.5 mg/dL (0.55-1.3); GLUCOSE,RANDOM 137 mg/dL (74-106); MAGNESIUM 2.4 mg/dL (1.8-2.4); POTASSIUM 4.4 mmol/L (3.5-5.1); SODIUM 143 mmol/L (136-145)
[2018-07-16] MEDS: AZITHROMYCIN IVPB 250 MG in DEXTROSE 5%-WATER - 250 ML IVPB SCH (10:31)
[2018-07-16] MEDS: ALBUTEROL SO4 0.083% IH SOL 2.5 MG/3 ML VIAL.NEB. NEB PRN ×3 (11:08→20:00)
[2018-07-16] MEDS: CEFTRIAXONE 1 GM in DEXTROSE 5%-WATER - 50 ML IVPB SCH (12:15)
--- NOTE | 2018-07-16 13:37 | PN ---
Progress Note (short form) - Note Progress Note: PULMONARY States breathing improving, chest looser. +cough with yellowish sputum. No fevers. Gets dyspneic with ambulating. Vital Signs Period Temp Pulse Resp BP Sys/Dean Pulse Ox Last 24 Hr 97.9 F-98.6 F 79-110 17-20 124-138/62-89 93-98 Gen: NAD at rest Heart: RRR Lung: decreased breath sounds at the bases, no wheezes Abd: soft, nontender Ext: + edema CBC, BMP 07/16/18 08:20 07/16/18 08:20 Active Medications Acetaminophen (Tylenol -) 650 mg PO Q6H PRN PRN Reason: PAIN OR FEVER Last Admin: 07/15/18 09:12 Dose: 650 mg Albuterol Sulfate (Ventolin 0.083% Nebulizer Soln -) 1 amp NEB Q4H PRN PRN Reason: SHORT OF BREATH/WHEEZING Last Admin: 07/16/18 11:08 Dose: 1 amp Heparin Sodium (Porcine) (Heparin -) 5,000 unit SQ TID BLAD[facility] Last Admin: 07/16/18 13:30 Dose: 5,000 unit Azithromycin 250 mg/ Dextrose 250 mls @ 250 mls/hr IVPB DAILY [facility] Last Admin: 07/16/18 10:31 Dose: 250 mls/hr Ceftriaxone Sodium 1 gm/ (Dextrose) 50 mls @ 100 mls/hr IVPB DAILY [facility]; Protocol Last Admin: 07/16/18 12:15 Dose: 100 mls/hr Methylprednisolone Sodium Succinate (Solu-Medrol -) 40 mg IVPUSH Q8H-IV [facility] Last Admin: 07/16/18 10:30 Dose: 40 mg Montelukast Sodium (Singulair -) 10 mg PO HS [facility] Last Admin: 07/15/18 21:03 Dose: 10 mg A/P Acute Asthma Exacerbation Pneumonia Syncope Morbid Obesity - continue medrol 40mg q8h - ambulate pt, if not dyspneic can change steroids to PO prednisone 40mg daily and taper as outpt - inhaled bronchodilators - monitor peak flow - continue singulair - continue antibiotics - when ready for discharge, should be on LABA/ICS and singulair - DVT prophylaxis Problem List - Problems (1) Acute asthma exacerbation Code(s): J45.901 - UNSPECIFIED ASTHMA WITH (ACUTE) EXACERBATION (2) Pneumonia Code(s): J18.9 - PNEUMONIA, UNSPECIFIED ORGANISM (3) Syncope Code(s): R55 - SYNCOPE AND COLLAPSE Qualifiers: Syncope type: unspecified Qualified Code(s): R55 - Syncope and collapse (4) Morbid obesity Code(s): E66.01 - MORBID (SEVERE) OBESITY DUE TO EXCESS CALORIES
[2018-07-16] MEDS: amLODIPine BESYLATE 5 MG TABLET (FP) PO SCH (15:37)
--- NOTE | 2018-07-16 15:49 | PN ---
Physical Exam: SUBJECTIVE: Patient seen and examined. On telemetry Pt. was tachycardic to 140s overnight. Pt. needed one Neb treatment overnight and one again in the morning b.c of wheezing and shortness of breath. Pt. endorses dysnea on exertion( walking from bathroom to chair in hospital). Pt. endorses palpitation especially after nebulizer treatments. Pt. denies headache, dizziness, lightheadedness, or numbness or tingling in extremities. OBJECTIVE: Vital Signs Period Temp Pulse Resp BP Sys/Dean Pulse Ox Last 24 Hr 97.9 F-98.6 F 79-110 16-20 124-151/62-103 93-98 GENERAL: The patient is awake, alert, and fully oriented, in no acute distress. HEAD: Normal with no signs of trauma. EYES: sclera anicteric, conjunctiva clear. No ptosis. ENT: Ears normal, nares patent, moist mucous membranes. NECK: Trachea midline, no carotid bruit, supple. LUNGS: mild wheezing, no crackles, no accessory muscle use. HEART: Regular rate and rhythm, S1, S2 without murmur, rub or gallop. ABDOMEN: Soft, nontender, nondistended, normoactive bowel sounds, no guarding, no rebound, no hepatosplenomegaly, no masses. EXTREMITIES: 2+ dorsal pedal pulses, warm, well-perfused, no edema, no calf tenderness, LLE ecchymosis. NEUROLOGICAL: Normal speech, gait not observed. PSYCH: Normal mood, normal affect. SKIN: Warm, dry, normal turgor Laboratory Results - last 24 hr 07/16/18 07/16/18 08:20 08:20 WBC 9.0 RBC 3.62 Hgb 7.9 L Hct 26.5 L MCV 73.2 L MCH 21.9 L MCHC 29.8 L RDW 18.8 H Plt Count 352 D MPV 7.2 L Sodium 143 Potassium 4.4 Chloride 111 H Carbon Dioxide 20 L Anion Gap 11 BUN 15 Creatinine 0.5 L Creat Clearance w eGFR > 60 Random Glucose 137 H Calcium 8.5 Phosphorus 3.0 Magnesium 2.4 Active Medications Current Medications Acetaminophen (Tylenol -) 650 mg PO Q6H PRN PRN Reason: PAIN OR FEVER Last Admin: 07/15/18 09:12 Dose: 650 mg Albuterol Sulfate (Ventolin 0.083% Nebulizer Soln -) 1 amp NEB Q4H PRN PRN Reason: SHORT OF BREATH/WHEEZING Last Admin: 07/16/18 11:08 Dose: 1 amp Amlodipine Besylate (Norvasc -) 5 mg PO DAILY [facility] Last Admin: 07/16/18 15:37 Dose: 5 mg Budesonide/Formoterol Fumarate (Symbicort 80/4.5mcg -) 2 puff IH BID BLAD[facility]IR Heparin Sodium (Porcine) (Heparin -) 5,000 unit SQ TID [facility] Last Admin: 07/16/18 13:30 Dose: 5,000 unit Azithromycin 250 mg/ Dextrose 250 mls @ 250 mls/hr IVPB DAILY [facility] Last Admin: 07/16/18 10:31 Dose: 250 mls/hr Ceftriaxone Sodium 1 gm/ (Dextrose) 50 mls @ 100 mls/hr IVPB DAILY [facility]; Protocol Last Admin: 07/16/18 12:15 Dose: 100 mls/hr Methylprednisolone Sodium Succinate (Solu-Medrol -) 40 mg IVPUSH Q8H-IV [facility] Montelukast Sodium (Singulair -) 10 mg PO HS [facility] Last Admin: 07/15/18 21:03 Dose: 10 mg Prednisone (Deltasone -) 40 mg PO DAILY [facility] Home Medications Medication Instructions Recorded Albuterol 0.083% Nebulizer [place] 1 neb NEB Q4H PRN 03/20/18 [Ventolin 0.083% Nebulizer Soln -] Acetaminophen [Tylenol .Regular 650 mg PO Q6H PRN #30 tablet 03/27/18 Strength -] ASSESSMENT/PLAN: Pt is a 42 y/o F with PMHx. of Asthma and chronic anemia presents to ED with asthma exacerbation and syncopal episode #Cardiology -Syncope-resolved Head CT: Negative for acute pathology EKG: NSR Dizziness: resolved -Chronic anemia at baseline may benefit from Iron and anemia work-up as outpatient monitor, transfusion threshold is a HgB less than 7 -HTN- new onset Start Norvasc 5mg #Pulmonology -Asthma c/w Solumedrol 40mg Q8H--> will switch to Prednisone 40mg w/ 12 day taper on discharge. Chest CT: mildly prominent b/l lymph nodes, recommends follow-up Chest CT in 3 months mild wheezing this AM Nebs prn Start Symbicort 80/4.5 Pulmonology consult (Dr. Solis) appreciated #FEN -No IVF, encourage PO intake -monitor electrolytes, replete as needed -Regular Diet #PPx -HSQ Visit type - Emergency Visit Emergency Visit: Yes ED Registration Date: 07/15/18 Care time: The patient presented to the Emergency Department on the above date and was hospitalized for further evaluation of their emergent condition. - New Patient This patient is new to me today: Yes Date on this admission: 07/16/18 - Critical Care Critical Care patient: No - Discharge Referral Referred to [facility] Med P.C.: No
[2018-07-16] MEDS ORDERED: hydrALAZINE HCL 20 MG/ML VIAL IVPUSH ONE (18:15)
--- NOTE | 2018-07-16 18:50 | PN ---
Teaching Attending Note Name of Resident: Todd Pak ATTENDING PHYSICIAN STATEMENT I saw and evaluated the patient. I reviewed the resident's note and discussed the case with the resident. I agree with the resident's findings and plan as documented. SUBJECTIVE: Patient continues to be short of breath OBJECTIVE: Vital Signs Temperature 97.9 F 07/16/18 14:23 Pulse Rate 119 H 07/16/18 17:56 Respiratory Rate 16 07/16/18 17:56 Blood Pressure 152/100 07/16/18 17:56 O2 Sat by Pulse Oximetry (%) 94 L 07/16/18 09:54 GENERAL: Awake, alert, and fully oriented, in no acute distress HEAD: No signs of trauma EYES: PERRLA, EOMI, sclera anicteric, conjunctiva clear ENT: oropharynx clear without exudates. Moist mucosa NECK: Normal ROM, supple, no lymphadenopathy, JVD, or masses LUNGS: Breath sounds equal, clear to auscultation bilaterally. No wheezes, and no crackles HEART:(+) tachy. Regular rhythm, normal S1 and S2, no murmurs, rubs or gallops ABDOMEN: obese. Soft, nontender, normoactive bowel sounds. No guarding, no rebound. No masses EXTREMITIES: Normal range of motion, no edema. No clubbing or cyanosis. No cords, erythema, or tenderness NEUROLOGICAL: Cranial nerves II through XII grossly intact. Normal speech, normal gait SKIN: Warm, Dry, normal turgor, no rashes or lesions noted. CBCD WBC 9.0 K/mm3 (4.0-10.0) 07/16/18 08:20 RBC 3.62 M/mm3 (3.60-5.2) 07/16/18 08:20 Hgb 7.9 GM/dL (10.7-15.3) L 07/16/18 08:20 Hct 26.5 % (32.4-45.2) L 07/16/18 08:20 MCV 73.2 fl (80-96) L 07/16/18 08:20 MCHC 29.8 g/dl (32.0-36.0) L 07/16/18 08:20 RDW 18.8 % (11.6-15.6) H 07/16/18 08:20 Plt Count 352 K/MM3 (134-434) D 07/16/18 08:20 MPV 7.2 fl (7.5-11.1) L 07/16/18 08:20 CMP Sodium 143 mmol/L (136-145) 07/16/18 08:20 Potassium 4.4 mmol/L (3.5-5.1) 07/16/18 08:20 Chloride 111 mmol/L (98-107) H 07/16/18 08:20 Carbon Dioxide 20 mmol/L (21-32) L 07/16/18 08:20 Anion Gap 11 MMOL/L (8-16) 07/16/18 08:20 BUN 15 mg/dL (7-18) 07/16/18 08:20 Creatinine 0.5 mg/dL (0.55-1.3) L 07/16/18 08:20 Creat Clearance w eGFR > 60 (>60) 07/16/18 08:20 Random Glucose 137 mg/dL (74-106) H 07/16/18 08:20 Calcium 8.5 mg/dL (8.5-10.1) 07/16/18 08:20 Total Bilirubin 0.1 mg/dL (0.2-1) L 07/15/18 05:12 AST 13 U/L (15-37) L 07/15/18 05:12 ALT 16 U/L (13-61) 07/15/18 05:12 Alkaline Phosphatase 84 U/L (45-117) 07/15/18 05:12 Total Protein 6.7 g/dl (6.4-8.2) 07/15/18 05:12 Albumin 2.9 g/dl (3.4-5.0) L 07/15/18 05:12 CARDIAC ENZYMES Creatine Kinase 70 IU/L (26-192) 07/14/18 19:54 Troponin I < 0.02 ng/ml (0.00-0.05) 07/14/18 19:54 Current Medications Generic Name Dose Route Start Last Admin Trade Name Freq PRN Reason Stop Dose Admin Acetaminophen 650 mg 07/15/18 09:08 07/15/18 09:12 Tylenol - PO 650 mg Q6H PRN Administration PAIN OR FEVER Albuterol Sulfate 1 amp 07/15/18 04:01 07/16/18 16:31 Ventolin 0.083% Nebulizer Soln - NEB 1 amp Q4H PRN Administration SHORT OF BREATH/WHEEZING Amlodipine Besylate 5 mg 07/16/18 15:30 07/16/18 15:37 Norvasc - PO 5 mg DAILY [facility] Administration Budesonide/Formoterol Fumarate 2 puff 07/17/18 10:00 Symbicort 80/4.5mcg - IH BID BLAD[facility] Heparin Sodium (Porcine) 5,000 unit 07/15/18 04:15 07/16/18 13:30 Heparin - SQ 5,000 unit TID BLAD[facility] Administration Azithromycin 250 mg/ Dextrose 250 mls @ 250 mls/hr 07/15/18 10:00 07/16/18 10 :31 IVPB 250 mls/hr DAILY [facility] Administration Ceftriaxone Sodium 1 gm/ 50 mls @ 100 mls/hr 07/15/18 10:00 07/16/18 12:15 Dextrose IVPB 100 mls/hr DAILY [facility] Administration Protocol Methylprednisolone Sodium Succinate 40 mg 07/16/18 18:00 07/16/18 17:20 Solu-Medrol - IVPUSH 40 mg Q8H-IV [facility] Administration Montelukast Sodium 10 mg 07/15/18 22:00 07/15/18 21:03 Singulair - PO 10 mg HS [facility] Administration Home Medications Medication Instructions Recorded Albuterol 0.083% Nebulizer [place] 1 neb NEB Q4H PRN 03/20/18 [Ventolin 0.083% Nebulizer Soln -] Acetaminophen [Tylenol .Regular 650 mg PO Q6H PRN #30 tablet 03/27/18 Strength -] ASSESSMENT AND PLAN: Pt is a 42 y/o F with PMH asthma who presented to ED with asthma exacerbation and syncope. #Acute Asthma Exacerbation on steroid continue, neb trxs, As per pulmonary, monitor peak flow, continue singulair # Pneumonia on Rocephin/Zithromax IV continue # Syncope :Head ct unremarkable, no further dizziness #Morbid Obesity diet recommended s/p bariatric gastric bypass surgery #Chronic anemia at baseline DVT Px: HSQ when ready for discharge, should be on LABA/ICS and singulair
[2018-07-16] MEDS ORDERED: BUDESONIDE/FORMETEROL FUMARATE 80/4.5 mcg INHALER IH SCH (22:00)
[2018-07-16] MEDS: MONTELUKAST NA 10 MG TABLET PO SCH (22:07)
[2018-07-16] MEDS: IBUPROFEN 400 MG TABLET (FP) PO PRN (23:02)
[2018-07-17] MEDS: methylPREDNISolone NA SUCC 40 MG/1 ML VIAL IVPUSH SCH ×3 (02:01→17:27)
[2018-07-17] MEDS: HEPARIN NA (PORCINE) 5,000 UNITS/ML 1ML VIAL SQ SCH ×3 (06:22→22:36)
[2018-07-17] MEDS: ALBUTEROL SO4 0.083% IH SOL 2.5 MG/3 ML VIAL.NEB. NEB PRN ×2 (07:27→19:29)
[2018-07-17 07:40] LABS: ANION GAP 11 MMOL/L (8-16); BLOOD UREA NITROGEN 20 mg/dL (7-18); CALCIUM 8.7 mg/dL (8.5-10.1); CHLORIDE 110 mmol/L (98-107); CO2 20 mmol/L (21-32); CREATININE 0.5 mg/dL (0.55-1.3); GLUCOSE,RANDOM 135 mg/dL (74-106); MAGNESIUM 2.5 mg/dL (1.8-2.4); PHOSPHOROUS 3.2 mg/dL (2.5-4.9); POTASSIUM 4.4 mmol/L (3.5-5.1); SODIUM 142 mmol/L (136-145)
[2018-07-17] MEDS ORDERED: predniSONE 20 MG TABLET (UD) PO SCH (10:00)
[2018-07-17] MEDS ORDERED: DEXTROSE 5%-WATER - 50 ML IVPB ONE (10:07)
[2018-07-17] MEDS ORDERED: cefTRIAXone SODIUM 1 GM VIAL ONE (10:07)
[2018-07-17] MEDS ORDERED: PT OWN MED DRAWER 7, Y5N ONE ×4 (10:07→22:42)
[2018-07-17] MEDS: CEFTRIAXONE 1 GM in DEXTROSE 5%-WATER - 50 ML IVPB SCH (10:18)
[2018-07-17] MEDS: IBUPROFEN 400 MG TABLET (FP) PO PRN (10:18)
[2018-07-17] MEDS: amLODIPine BESYLATE 5 MG TABLET (FP) PO SCH (10:19)
[2018-07-17] MEDS: BUDESONIDE/FORMETEROL FUMARATE 80/4.5 mcg INHALER IH SCH ×2 (11:26→22:37)
[2018-07-17] MEDS: AZITHROMYCIN IVPB 250 MG in DEXTROSE 5%-WATER - 250 ML IVPB SCH (11:39)
--- NOTE | 2018-07-17 12:26 | PN ---
Progress Note, Physician History of Present Illness: PULMONARY ALERTFEELING BETTETR,LESS DYSPNEIC - Current Medication List Current Medications: Active Medications Acetaminophen (Tylenol -) 650 mg PO Q6H PRN PRN Reason: PAIN OR FEVER Last Admin: 07/15/18 09:12 Dose: 650 mg Albuterol Sulfate (Ventolin 0.083% Nebulizer Soln -) 1 amp NEB Q4H PRN PRN Reason: SHORT OF BREATH/WHEEZING Last Admin: 07/17/18 07:27 Dose: 1 amp Amlodipine Besylate (Norvasc -) 5 mg PO DAILY [facility] Last Admin: 07/17/18 10:19 Dose: 5 mg Budesonide/Formoterol Fumarate (Symbicort 80/4.5mcg -) 2 puff IH BID [facility]AD[facility] Last Admin: 07/17/18 11:26 Dose: 2 puff Heparin Sodium (Porcine) (Heparin -) 5,000 unit SQ TID [facility]AD[facility] Last Admin: 07/17/18 06:22 Dose: 5,000 unit Azithromycin 250 mg/ Dextrose 250 mls @ 250 mls/hr IVPB DAILY [facility] Last Admin: 07/17/18 11:39 Dose: 250 mls/hr Ceftriaxone Sodium 1 gm/ (Dextrose) 50 mls @ 100 mls/hr IVPB DAILY [facility]AD[facility]; Protocol Last Admin: 07/17/18 10:18 Dose: 100 mls/hr Ibuprofen (Motrin -) 400 mg PO Q6H PRN PRN Reason: FEVER Last Admin: 07/17/18 10:18 Dose: 400 mg Methylprednisolone Sodium Succinate (Solu-Medrol -) 40 mg IVPUSH Q8H-IV [facility] Last Admin: 07/17/18 10:18 Dose: 40 mg Montelukast Sodium (Singulair -) 10 mg PO HS [facility]AD[facility] Last Admin: 07/16/18 22:07 Dose: 10 mg - Objective Vital Signs: Vital Signs Temperature 98.3 F 07/17/18 02:00 Pulse Rate 90 07/17/18 02:00 Respiratory Rate 18 07/17/18 02:00 Blood Pressure 143/69 07/17/18 02:00 O2 Sat by Pulse Oximetry (%) 100 07/16/18 21:00 Constitutional: Yes: Well Nourished, Calm Eyes: Yes: WNL HENT: Yes: WNL Neck: Yes: WNL Cardiovascular: Yes: Regular Rate and Rhythm, S1, S2 Respiratory: Yes: Wheezes (SCATTERED KALINA WHEEZES) Gastrointestinal: Yes: Normal Bowel Sounds, Soft Extremities: Yes: WNL Edema: No Labs: 07/17/18 05:50 Assessment/Plan A/P Acute Asthma Exacerbation Pneumonia Syncope Morbid Obesity - medrol taper - ambulate pt, if not dyspneic can change steroids to PO prednisone 40mg daily and taper as outpt - inhaled bronchodilators - monitor peak flow - singulair - antibiotics - when ready for discharge, should be on LABA/ICS and singulair - DVT prophylaxis Problem List - Problems (1) Acute asthma exacerbation Code(s): J45.901 - UNSPECIFIED ASTHMA WITH (ACUTE) EXACERBATION (2) Pneumonia Code(s): J18.9 - PNEUMONIA, UNSPECIFIED ORGANISM (3) Syncope Code(s): R55 - SYNCOPE AND COLLAPSE Qualifiers: Syncope type: unspecified Qualified Code(s): R55 - Syncope and collapse (4) Morbid obesity Code(s): E66.01 - MORBID (SEVERE) OBESITY DUE TO EXCESS CALORIES
--- NOTE | 2018-07-17 15:12 | PN ---
Physical Exam: SUBJECTIVE: Patient seen and examined. Pt. received 1 nebulizer this morning. Received 10mg Hydralazine overnight in addition to 5 mg Norvasc for HTN to good effect. Pt. endorses VIDALES, and palpitations after nebulizer treatments. Pt. this morning denies any other complaints on ROS except as noted above. OBJECTIVE: Vital Signs Period Temp Pulse Resp BP Sys/Dean Pulse Ox Last 24 Hr 98.0 F-98.3 F 90-124 16-18 137-152/69-100 100 GENERAL: The patient is awake, alert, and fully oriented, in no acute distress. EYES: Sclera anicteric, conjunctiva clear. No ptosis. ENT: Ears normal, nares patent, moist mucous membranes. LUNGS: Breath sounds equal, clear to auscultation bilaterally, no wheezes, no crackles, no accessory muscle use. HEART: Tachycardic, regular rate and rhythm, S1, S2 without murmur, rub or gallop. ABDOMEN: Soft, nontender, nondistended, normoactive bowel sounds, no guarding, no rebound EXTREMITIES: 2+ dorsal pedal pulses, warm, no calf tenderness, well-perfused, no edema. NEUROLOGICAL: Normal speech, gait not observed. PSYCH: Normal mood, normal affect. SKIN: Warm, dry, normal turgor, ecchymosis on LLE. Laboratory Results - last 24 hr 07/17/18 05:50 Sodium 142 Potassium 4.4 Chloride 110 H Carbon Dioxide 20 L Anion Gap 11 BUN 20 H Creatinine 0.5 L Creat Clearance w eGFR > 60 Random Glucose 135 H Calcium 8.7 Phosphorus 3.2 Magnesium 2.5 H Active Medications Current Medications Acetaminophen (Tylenol -) 650 mg PO Q6H PRN PRN Reason: PAIN OR FEVER Last Admin: 07/15/18 09:12 Dose: 650 mg Albuterol Sulfate (Ventolin 0.083% Nebulizer Soln -) 1 amp NEB Q4H PRN PRN Reason: SHORT OF BREATH/WHEEZING Last Admin: 07/17/18 07:27 Dose: 1 amp Amlodipine Besylate (Norvasc -) 5 mg PO DAILY [facility] Last Admin: 07/17/18 10:19 Dose: 5 mg Budesonide/Formoterol Fumarate (Symbicort 80/4.5mcg -) 2 puff IH BID [facility] Last Admin: 07/17/18 11:26 Dose: 2 puff Heparin Sodium (Porcine) (Heparin -) 5,000 unit SQ TID BLAD[facility] Last Admin: 07/17/18 13:56 Dose: 5,000 unit Azithromycin 250 mg/ Dextrose 250 mls @ 250 mls/hr IVPB DAILY [facility] Last Admin: 07/17/18 11:39 Dose: 250 mls/hr Ceftriaxone Sodium 1 gm/ (Dextrose) 50 mls @ 100 mls/hr IVPB DAILY [facility]AD[facility]; Protocol Last Admin: 07/17/18 10:18 Dose: 100 mls/hr Ibuprofen (Motrin -) 400 mg PO Q6H PRN PRN Reason: FEVER Last Admin: 07/17/18 10:18 Dose: 400 mg Methylprednisolone Sodium Succinate (Solu-Medrol -) 60 mg IVPUSH Q8H-IV [facility]AD[facility] Montelukast Sodium (Singulair -) 10 mg PO HS [facility]AD[facility] Last Admin: 07/16/18 22:07 Dose: 10 mg Home Medications Medication Instructions Recorded Albuterol 0.083% Nebulizer [place] 1 neb NEB Q4H PRN 03/20/18 [Ventolin 0.083% Nebulizer Soln -] Acetaminophen [Tylenol .Regular 650 mg PO Q6H PRN #30 tablet 03/27/18 Strength -] ASSESSMENT/PLAN: Pt is a 42 y/o F with PMHx. of Asthma and chronic anemia presents to ED with asthma exacerbation and syncopal episode #Cardiology -Syncope-resolved Head CT: Negative for acute pathology EKG: NSR Dizziness: resolved f/u Echo -Chronic anemia at baseline may benefit from Iron and anemia work-up as outpatient monitor, transfusion threshold is a HgB less than 7 -HTN- new onset Start Norvasc 5mg #Pulmonology -Asthma Increased Solumedrol 60mg Q8H, b/c of wheezing heard today --> will switch to Prednisone 40mg w/ 12 day taper on discharge. Chest CT: mildly prominent b/l lymph nodes, recommends follow-up Chest CT in 3 months mild wheezing this AM Nebs prn c/w Symbicort 80/4.5 Pulmonology consult (Dr. Solis) appreciated #FEN -No IVF, encourage PO intake -monitor electrolytes, replete as needed -Regular Diet #PPx -HSQ Visit type - Emergency Visit Emergency Visit: Yes ED Registration Date: 07/15/18 Care time: The patient presented to the Emergency Department on the above date and was hospitalized for further evaluation of their emergent condition. - New Patient This patient is new to me today: No - Critical Care Critical Care patient: No - Discharge Referral Referred to [facility] Med P.C.: No
--- NOTE | 2018-07-17 15:18 | PN ---
Teaching Attending Note Name of Resident: Todd Pak ATTENDING PHYSICIAN STATEMENT I saw and evaluated the patient. I reviewed the resident's note and discussed the case with the resident. I agree with the resident's findings and plan as documented. SUBJECTIVE: OBJECTIVE: Vital Signs Temperature 98.0 F 07/17/18 13:58 Pulse Rate 101 H 07/17/18 13:58 Respiratory Rate 18 07/17/18 13:58 Blood Pressure 139/70 07/17/18 13:58 O2 Sat by Pulse Oximetry (%) 100 07/16/18 21:00 GENERAL: Awake, alert, and fully oriented, in no acute distress HEAD: No signs of trauma EYES: PERRLA, EOMI, sclera anicteric, conjunctiva clear ENT: Auricles normal inspection, hearing grossly normal, oropharynx clear without exudates. Moist mucosa NECK: Normal ROM, supple, no lymphadenopathy, JVD, or masses LUNGS: Breath sounds equal, clear to auscultation bilaterally. No wheezes, and no crackles HEART:(+) tachy. Regular rhythm, normal S1 and S2, no murmurs, rubs or gallops ABDOMEN: obese. Soft, nontender, normoactive bowel sounds. No guarding, no rebound. No masses EXTREMITIES: Normal range of motion, no edema. No clubbing or cyanosis. No cords, erythema, or tenderness NEUROLOGICAL: Cranial nerves II through XII grossly intact. Normal speech, normal gait SKIN: Warm, Dry, normal turgor, no rashes or lesions noted. CBCD WBC 9.0 K/mm3 (4.0-10.0) 07/16/18 08:20 RBC 3.62 M/mm3 (3.60-5.2) 07/16/18 08:20 Hgb 7.9 GM/dL (10.7-15.3) L 07/16/18 08:20 Hct 26.5 % (32.4-45.2) L 07/16/18 08:20 MCV 73.2 fl (80-96) L 07/16/18 08:20 MCHC 29.8 g/dl (32.0-36.0) L 07/16/18 08:20 RDW 18.8 % (11.6-15.6) H 07/16/18 08:20 Plt Count 352 K/MM3 (134-434) D 07/16/18 08:20 MPV 7.2 fl (7.5-11.1) L 07/16/18 08:20 CMP Sodium 142 mmol/L (136-145) 07/17/18 05:50 Potassium 4.4 mmol/L (3.5-5.1) 07/17/18 05:50 Chloride 110 mmol/L (98-107) H 07/17/18 05:50 Carbon Dioxide 20 mmol/L (21-32) L 07/17/18 05:50 Anion Gap 11 MMOL/L (8-16) 07/17/18 05:50 BUN 20 mg/dL (7-18) H 07/17/18 05:50 Creatinine 0.5 mg/dL (0.55-1.3) L 07/17/18 05:50 Creat Clearance w eGFR > 60 (>60) 07/17/18 05:50 Random Glucose 135 mg/dL (74-106) H 07/17/18 05:50 Calcium 8.7 mg/dL (8.5-10.1) 07/17/18 05:50 Total Bilirubin 0.1 mg/dL (0.2-1) L 07/15/18 05:12 AST 13 U/L (15-37) L 07/15/18 05:12 ALT 16 U/L (13-61) 07/15/18 05:12 Alkaline Phosphatase 84 U/L (45-117) 07/15/18 05:12 Total Protein 6.7 g/dl (6.4-8.2) 07/15/18 05:12 Albumin 2.9 g/dl (3.4-5.0) L 07/15/18 05:12 CARDIAC ENZYMES Creatine Kinase 70 IU/L (26-192) 07/14/18 19:54 Troponin I < 0.02 ng/ml (0.00-0.05) 07/14/18 19:54 Home Medications Medication Instructions Recorded Albuterol 0.083% Nebulizer [place] 1 neb NEB Q4H PRN 03/20/18 [Ventolin 0.083% Nebulizer Soln -] Acetaminophen [Tylenol .Regular 650 mg PO Q6H PRN #30 tablet 03/27/18 Strength -] Current Medications Generic Name Dose Route Start Last Admin Trade Name Freq PRN Reason Stop Dose Admin Acetaminophen 650 mg 07/15/18 09:08 07/15/18 09:12 Tylenol - PO 650 mg Q6H PRN Administration PAIN OR FEVER Albuterol Sulfate 1 amp 07/15/18 04:01 07/17/18 07:27 Ventolin 0.083% Nebulizer Soln - NEB 1 amp Q4H PRN Administration SHORT OF BREATH/WHEEZING Amlodipine Besylate 5 mg 07/16/18 15:30 07/17/18 10:19 Norvasc - PO 5 mg DAILY [facility] Administration Budesonide/Formoterol Fumarate 2 puff 07/17/18 10:00 07/17/18 11:26 Symbicort 80/4.5mcg - IH 2 puff BID BLADIMIR Administration Heparin Sodium (Porcine) 5,000 unit 07/15/18 04:15 07/17/18 13:56 Heparin - SQ 5,000 unit TID BLAD[facility] Administration Azithromycin 250 mg/ Dextrose 250 mls @ 250 mls/hr 07/15/18 10:00 07/17/18 11 :39 IVPB 250 mls/hr DAILY [facility] Administration Ceftriaxone Sodium 1 gm/ 50 mls @ 100 mls/hr 07/15/18 10:00 07/17/18 10:18 Dextrose IVPB 100 mls/hr DAILY [facility] Administration Protocol Ibuprofen 400 mg 07/16/18 22:57 07/17/18 10:18 Motrin - PO 400 mg Q6H PRN Administration FEVER Methylprednisolone Sodium Succinate 60 mg 07/17/18 18:00 Solu-Medrol - IVPUSH Q8H-IV BLADIMIR Montelukast Sodium 10 mg 07/15/18 22:00 07/16/18 22:07 Singulair - PO 10 mg HS BLADIMIR Administration Impression: No CT evidence of pulmonary embolism. A left upper lobe infiltrate is seen. Correlation with 3 month follow-up CT is suggested to document resolution of this finding and to exclude underlying pathology. Nonspecific mildly prominent bilateral hilar lymph nodes are noted which could be hyperplastic in nature. Reevaluation at the time of 3 month follow-up CT is suggested to document stability/ resolution. Reported By: Hector Hernandez MD [id number] ASSESSMENT AND PLAN: Patient is a 42 y/o F with PMH asthma who presented to ED with asthma exacerbation and syncope. #Acute Asthma Exacerbation on steroid continue, neb trxs, As per pulmonary, monitor peak flow, continue singulair, continue treatment. # Pneumonia on Rocephin/Zithromax IV continue # Syncope :Head ct unremarkable, no further dizziness #Morbid Obesity diet recommended s/p bariatric gastric bypass surgery #Chronic anemia at baseline DVT Px: HSQ when ready for discharge, should be on LABA/ICS and singulair Possible discharge in am
[2018-07-17] MEDS: MONTELUKAST NA 10 MG TABLET PO SCH (22:36)
[2018-07-17] MEDS: ACETAMINOPHEN 325 MG TABLET (FP) PO PRN (22:42)
[2018-07-18] MEDS: methylPREDNISolone NA SUCC 40 MG/1 ML VIAL IVPUSH SCH ×2 (02:00→10:26)
[2018-07-18] MEDS: HEPARIN NA (PORCINE) 5,000 UNITS/ML 1ML VIAL SQ SCH (05:52)
[2018-07-18 06:47] LABS: HEMATOCRIT 27.1 % (32.4-45.2); HEMOGLOBIN 8.2 GM/dL (10.7-15.3); MEAN CELL VOLUME 73.2 fl (80-96); MEAN PLT VOLUME 7.1 fl (7.5-11.1); PLATELET COUNT 384 K/MM3 (134-434); RBC 3.71 M/mm3 (3.60-5.2); RDW 18.3 % (11.6-15.6); WHITE BLOOD COUNT 10.5 K/mm3 (4.0-10.0)
[2018-07-18 07:11] LABS: ANION GAP 11 MMOL/L (8-16); BLOOD UREA NITROGEN 17 mg/dL (7-18); CALCIUM 8.5 mg/dL (8.5-10.1); CHLORIDE 111 mmol/L (98-107); CO2 20 mmol/L (21-32); CREATININE 0.4 mg/dL (0.55-1.3); GLUCOSE,RANDOM 126 mg/dL (74-106); MAGNESIUM 2.4 mg/dL (1.8-2.4); PHOSPHOROUS 3.1 mg/dL (2.5-4.9); POTASSIUM 4.2 mmol/L (3.5-5.1); SODIUM 142 mmol/L (136-145)
[2018-07-18] MEDS: ALBUTEROL SO4 0.083% IH SOL 2.5 MG/3 ML VIAL.NEB. NEB PRN (09:08)
[2018-07-18] MEDS ORDERED: PT OWN MED DRAWER 7, Y5N ONE (10:21)
[2018-07-18] MEDS ORDERED: cefTRIAXone SODIUM 1 GM VIAL ONE (10:21)
[2018-07-18] MEDS ORDERED: DEXTROSE 5%-WATER - 50 ML IVPB ONE (10:21)
[2018-07-18] MEDS: amLODIPine BESYLATE 5 MG TABLET (FP) PO SCH (10:25)
[2018-07-18] MEDS: BUDESONIDE/FORMETEROL FUMARATE 80/4.5 mcg INHALER IH SCH (10:26)
[2018-07-18] MEDS: CEFTRIAXONE 1 GM in DEXTROSE 5%-WATER - 50 ML IVPB SCH (10:27)
--- NOTE | 2018-07-18 11:52 | DS ---
Physical Exam: SUBJECTIVE: Patient seen and examined. Pt. received 1 Tx. last night and another in the morning. Pt. endorses decreased VIDALES. Pt. received Tylenol for back pain to good effect. OBJECTIVE: Vital Signs Period Temp Pulse Resp BP Sys/Dean Pulse Ox Last 24 Hr 97.3 F-98.6 F 76-104 18-20 125-145/70-92 PHYSICAL EXAM GENERAL: The patient is awake, alert, and fully oriented, in no acute distress. EYES: sclera anicteric, conjunctiva clear. ENT: Ears normal, nares patent, moist mucous membranes. LUNGS: mild wheezes, faint LLL crackles, no accessory muscle use. HEART: Tachycardic regular rate and rhythm, S1, S2 without murmur ABDOMEN: Soft, nontender, nondistended, normoactive bowel sounds, no guarding, no rebound EXTREMITIES: 2+ dorsal pedal pulses, warm, well-perfused, resolving no edema. NEUROLOGICAL: Normal speech, gait not observed. PSYCH: Normal mood, normal affect. SKIN: Warm, dry, normal turgor, no rashes or lesions noted. LABS Laboratory Results - last 24 hr 07/18/18 07/18/18 06:00 06:00 WBC 10.5 H RBC 3.71 Hgb 8.2 L Hct 27.1 L MCV 73.2 L MCH 22.0 L MCHC 30.0 L RDW 18.3 H Plt Count 384 MPV 7.1 L Sodium 142 Potassium 4.2 Chloride 111 H Carbon Dioxide 20 L Anion Gap 11 BUN 17 Creatinine 0.4 L Creat Clearance w eGFR > 60 Random Glucose 126 H Calcium 8.5 Phosphorus 3.1 Magnesium 2.4 HOSPITAL COURSE: Date of Admission:07/15/18 Date of Discharge: 07/18/18 Pt. was admitted for an acute asthma exacerbation with associated syncope. Head CT, Hip/Pelvis X-ray showed no acute pathology. Chest CT showed mildly prominent b/l hilar lymph nodes, but negative for PE. Pt. treated with Albuterol and IV steroids converted to Prednisone taper per Pulmonology. Pt. advised for Rpt. Chest Ct in 3 months. Echo was grossly normal with EF of 60-70% . Home medications adjusted as mentioned below. Hospital course discussed and agreed upon with Pt. Minutes to complete discharge: 34 Discharge Summary Reason For Visit: SYNCOPE Current Active Problems Acute asthma exacerbation (Acute) Morbid obesity (Acute) Pneumonia (Acute) Syncope (Acute) Condition: Improved - Instructions Diet, Activity, Other Instructions: You were admitted for an asthma exacerbation and an episode of falling down You were started on steroid medications to help your breathing We are discharging you with short course of Prednisone (steroids). Please take as prescribed below: Prednisone 5 mg pills Please take 8 pills from 07/18- Please take 7 pills from 07/20-07/21 Please take 6 pills from 07/22-07/23 Please take 5 pills from 07/24-07/25 Please take 4 pills from 07/26-07/27 Please take 3 pills from 07/28-07/29 Please take 2 pills from 07/30-07/31 Please take 1 pill from 08/01-08/02 We have started you on a new inhaler, Symbicort. Please take 2 puffs every morning and every evening at the same time, even if you are not feeling short of breath. This medication will help prevent asthma exacerbations. Please rinse your mouth after each dose, to prevent a fungal infection of your tongue You were started a new medication for your asthma, Singulair (Monteleukast). Please take 1 pill of Singulair 10mg Daily at night. You were started on a new medication to treat hypertension, Norvasc (Amlodipine) . Please take 1 pill of Norvasc 5mg Daily You were started on an antibiotic for 5 days, Cefetin 500mg Q12H for 5 days. You were given a Peak Flow meter and measure a high of 300 in the hospital. Please use the Peak Flow meter once a day and record your measurements so that you can be aware of when you are starting to trend down. If you notice that the measurements are trending down please notify your Auto Job Estimator. Please follow up with your Primary Care Physician in 1 week. Please follow-up with your Auto Job Estimator within 1 week. Please return to the ED if you are experiencing increased shortness of breath, numbness or tingling of the extremities, dizziness, chest pain, sudden onset blurry vision. 3 month follow-up CT needed. please see the leasing agent for further w/u. Referrals: Hector Angel MD [Staff Physician] - 1 Week Philipp Gonzalez MD [Primary Care Provider] - 1 Week Disposition: HOME - Home Medications Comprehensive Discharge Medication List: Ambulatory Orders Albuterol 0.083% Nebulizer Smitha [Ventolin 0.083% Nebulizer Soln -] 1 neb NEB Q4H PRN 03/20/18 Acetaminophen [Tylenol .Regular Strength -] 650 mg PO Q6H PRN #30 tablet This patient is new to me today: No Emergency Visit: Yes ED Registration Date: 07/15/18 Care time: The patient presented to the Emergency Department on the above date and was hospitalized for further evaluation of their emergent condition. Critical Care patient: No - Discharge Referral Referred to [facility] Med P.C.: No
[2018-07-18] MEDS: AZITHROMYCIN IVPB 250 MG in DEXTROSE 5%-WATER - 250 ML IVPB SCH (12:02)
--- NOTE | 2018-07-18 12:39 | PN ---
Teaching Attending Note Name of Resident: Todd Pak ATTENDING PHYSICIAN STATEMENT I saw and evaluated the patient. I reviewed the resident's note and discussed the case with the resident. I agree with the resident's findings and plan as documented. SUBJECTIVE: OBJECTIVE: Vital Signs Temperature 97.3 F L 07/18/18 10:39 Pulse Rate 121 H 07/18/18 12:21 Respiratory Rate 20 07/18/18 10:39 Blood Pressure 145/92 07/18/18 10:39 O2 Sat by Pulse Oximetry (%) 100 07/18/18 12:21 GENERAL: Awake, alert, and fully oriented, in no acute distress HEAD: No signs of trauma EYES: PERRLA, EOMI, sclera anicteric, conjunctiva clear ENT: Auricles normal inspection, hearing grossly normal, oropharynx clear without exudates. Moist mucosa NECK: Normal ROM, supple, no lymphadenopathy, JVD, or masses LUNGS: Breath sounds equal, clear to auscultation bilaterally. No wheezes, and no crackles HEART:(+) tachy. Regular rhythm, normal S1 and S2, no murmurs, rubs or gallops ABDOMEN: obese. Soft, nontender, normoactive bowel sounds. No guarding, no rebound. No masses EXTREMITIES: Normal range of motion, no edema. No clubbing or cyanosis. No cords, erythema, or tenderness NEUROLOGICAL: Cranial nerves II through XII grossly intact. Normal speech, normal gait SKIN: Warm, Dry, normal turgor, no rashes or lesions noted. CBCD WBC 10.5 K/mm3 (4.0-10.0) H 07/18/18 06:00 RBC 3.71 M/mm3 (3.60-5.2) 07/18/18 06:00 Hgb 8.2 GM/dL (10.7-15.3) L 07/18/18 06:00 Hct 27.1 % (32.4-45.2) L 07/18/18 06:00 MCV 73.2 fl (80-96) L 07/18/18 06:00 MCHC 30.0 g/dl (32.0-36.0) L 07/18/18 06:00 RDW 18.3 % (11.6-15.6) H 07/18/18 06:00 Plt Count 384 K/MM3 (134-434) 07/18/18 06:00 MPV 7.1 fl (7.5-11.1) L 07/18/18 06:00 CMP Sodium 142 mmol/L (136-145) 07/18/18 06:00 Potassium 4.2 mmol/L (3.5-5.1) 07/18/18 06:00 Chloride 111 mmol/L (98-107) H 07/18/18 06:00 Carbon Dioxide 20 mmol/L (21-32) L 07/18/18 06:00 Anion Gap 11 MMOL/L (8-16) 07/18/18 06:00 BUN 17 mg/dL (7-18) 07/18/18 06:00 Creatinine 0.4 mg/dL (0.55-1.3) L 07/18/18 06:00 Creat Clearance w eGFR > 60 (>60) 07/18/18 06:00 Random Glucose 126 mg/dL (74-106) H 07/18/18 06:00 Calcium 8.5 mg/dL (8.5-10.1) 07/18/18 06:00 Total Bilirubin 0.1 mg/dL (0.2-1) L 07/15/18 05:12 AST 13 U/L (15-37) L 07/15/18 05:12 ALT 16 U/L (13-61) 07/15/18 05:12 Alkaline Phosphatase 84 U/L (45-117) 07/15/18 05:12 Total Protein 6.7 g/dl (6.4-8.2) 07/15/18 05:12 Albumin 2.9 g/dl (3.4-5.0) L 07/15/18 05:12 CARDIAC ENZYMES Creatine Kinase 70 IU/L (26-192) 07/14/18 19:54 Troponin I < 0.02 ng/ml (0.00-0.05) 07/14/18 19:54 Current Medications Generic Name Dose Route Start Last Admin Trade Name Freq PRN Reason Stop Dose Admin Acetaminophen 650 mg 07/15/18 09:08 07/17/18 22:42 Tylenol - PO 650 mg Q6H PRN Administration PAIN OR FEVER Albuterol Sulfate 1 amp 07/15/18 04:01 07/18/18 09:08 Ventolin 0.083% Nebulizer Soln - NEB 1 amp Q4H PRN Administration SHORT OF BREATH/WHEEZING Amlodipine Besylate 5 mg 07/16/18 15:30 07/18/18 10:25 Norvasc - PO 5 mg DAILY [facility] Administration Budesonide/Formoterol Fumarate 2 puff 07/17/18 10:00 07/18/18 10:26 Symbicort 80/4.5mcg - IH 2 puff BID BLDAIMIR Administration Heparin Sodium (Porcine) 5,000 unit 07/15/18 04:15 07/18/18 05:52 Heparin - SQ 5,000 unit TID [facility]AD[facility] Administration Azithromycin 250 mg/ Dextrose 250 mls @ 250 mls/hr 07/15/18 10:00 07/18/18 12 :02 IVPB 250 mls/hr DAILY [facility] Administration Ceftriaxone Sodium 1 gm/ 50 mls @ 100 mls/hr 07/15/18 10:00 07/18/18 10:27 Dextrose IVPB 100 mls/hr DAILY [facility] Administration Protocol Montelukast Sodium 10 mg 07/15/18 22:00 07/17/18 22:36 Singulair - PO 10 mg HS BLAD[facility]IR Administration Home Medications Medication Instructions Recorded Albuterol 0.083% Nebulizer [place] 1 neb NEB Q4H PRN 03/20/18 [Ventolin 0.083% Nebulizer Soln -] Acetaminophen [Tylenol .Regular 650 mg PO Q6H PRN #30 tablet 03/27/18 Strength -] Amlodipine Besylate [Norvasc -] 5 mg PO DAILY #30 tablet 07/18/18 Budesonide/Formeterol Fumarate 2 puff IH BID #1 inhaler 07/18/18 [SYMBICORT 80/4.5mcg -] Montelukast Na [Singulair -] 10 mg PO HS #30 tablet 07/18/18 Prednisone 10 mg PO ASDIR #30 tablet 07/18/18 Impression: No CT evidence of pulmonary embolism. A left upper lobe infiltrate is seen. Correlation with 3 month follow-up CT is suggested to document resolution of this finding and to exclude underlying pathology. Nonspecific mildly prominent bilateral hilar lymph nodes are noted which could be hyperplastic in nature. Reevaluation at the time of 3 month follow-up CT is suggested to document stability/ resolution. Reported By: Hector Hernandez MD [id number] ASSESSMENT AND PLAN: Patient is a 42 y/o F with PMH asthma who presented to ED with asthma exacerbation and syncope. #Acute Asthma Exacerbation on steroid continue, Ceftin 500mg po bid x 5 more days, will discharge patient home with. monitor peak flow 300 today. continue singulair, Symbicort . # Pneumonia will continue with Ceftin 500mg x 5 more days. completed 3 days of Zithromax # Syncope :Head ct unremarkable, no further dizziness further w/u with pmd and pulmonary. #Morbid Obesity diet recommended s/p bariatric gastric bypass surgery #Chronic anemia at baseline discharge patient home.
--- NOTE | 2018-07-18 13:05 | PN ---
Progress Note, Physician History of Present Illness: PULMONARY ALERT,FEELING BETTER,-SOB - Current Medication List Current Medications: Active Medications Acetaminophen (Tylenol -) 650 mg PO Q6H PRN PRN Reason: PAIN OR FEVER Last Admin: 07/17/18 22:42 Dose: 650 mg Albuterol Sulfate (Ventolin 0.083% Nebulizer Soln -) 1 amp NEB Q4H PRN PRN Reason: SHORT OF BREATH/WHEEZING Last Admin: 07/18/18 09:08 Dose: 1 amp Amlodipine Besylate (Norvasc -) 5 mg PO DAILY [facility] Last Admin: 07/18/18 10:25 Dose: 5 mg Budesonide/Formoterol Fumarate (Symbicort 80/4.5mcg -) 2 puff IH BID [facility] Last Admin: 07/18/18 10:26 Dose: 2 puff Heparin Sodium (Porcine) (Heparin -) 5,000 unit SQ TID [facility] Last Admin: 07/18/18 05:52 Dose: 5,000 unit Azithromycin 250 mg/ Dextrose 250 mls @ 250 mls/hr IVPB DAILY [facility] Last Admin: 07/18/18 12:02 Dose: 250 mls/hr Ceftriaxone Sodium 1 gm/ (Dextrose) 50 mls @ 100 mls/hr IVPB DAILY [facility]; Protocol Last Admin: 07/18/18 10:27 Dose: 100 mls/hr Montelukast Sodium (Singulair -) 10 mg PO HS [facility] Last Admin: 07/17/18 22:36 Dose: 10 mg - Objective Vital Signs: Vital Signs Temperature 97.3 F L 07/18/18 10:39 Pulse Rate 121 H 07/18/18 12:21 Respiratory Rate 20 07/18/18 10:39 Blood Pressure 145/92 07/18/18 10:39 O2 Sat by Pulse Oximetry (%) 100 07/18/18 12:21 Constitutional: Yes: Well Nourished, Calm Eyes: Yes: WNL HENT: Yes: WNL Neck: Yes: WNL Cardiovascular: Yes: Regular Rate and Rhythm, S1, S2 Respiratory: Yes: Wheezes (FEW WHEEZES) Gastrointestinal: Yes: Normal Bowel Sounds, Soft Extremities: Yes: WNL Edema: No Labs: CBC, BMP 07/18/18 06:00 07/18/18 06:00 Assessment/Plan A/P Acute Asthma Exacerbation Pneumonia Syncope Morbid Obesity - inhaled bronchodilators - monitor peak flow - singulair - antibiotics - Symbicort 160/4.5 2 puffs bid - DVT prophylaxis - Prednisone 40mg po with taper 5 mg every 2 days Problem List - Problems (1) Acute asthma exacerbation Code(s): J45.901 - UNSPECIFIED ASTHMA WITH (ACUTE) EXACERBATION (2) Pneumonia Code(s): J18.9 - PNEUMONIA, UNSPECIFIED ORGANISM (3) Syncope Code(s): R55 - SYNCOPE AND COLLAPSE Qualifiers: Syncope type: unspecified Qualified Code(s): R55 - Syncope and collapse (4) Morbid obesity Code(s): E66.01 - MORBID (SEVERE) OBESITY DUE TO EXCESS CALORIES
[2018-07-18 15:09] VITALS: BP 147/90; PULSE 99; TEMP 98.3
--- NOTE | 2018-07-18 15:22 | ECHO ---
Name: ROBSON SILVA Exam:Adult Echocardiogram Study Date: 07/18/2018 08:58 AM Age: 42 yrs Reason For Study: R/O AFIB Height: 58 in Weight: 234 lb BSA: 1.9 m2 MMode/2D Measurements & Calculations IVSd: 1.0 cm Ao root diam: 2.2 cm LVIDd: 3.9 cm LVIDs: 3.0 cm LVPWd: 1.2 cm EDV(Teich): 64.7 ml LVOT diam: 1.9 cm ESV(Teich): 35.3 ml RV S Denny: 12.7 cm/sec Doppler Measurements & Calculations Med Peak E' Denny: 8.7 cm/sec Lat Peak E' Denny: 11.7 cm/sec Procedure The study was technically limited with all images being suboptimal in quality. Left Ventricle The left ventricular size, thickness and function are normal. LVEF = 60-70%. Right Ventricle The right ventricle is not well visualized. Atria Normal left and right atrial size and function. Mitral Valve The mitral valve is grossly normal. Tricuspid Valve The tricuspid valve is not well visualized, but is grossly normal. There was insufficient TR detected to calculate RV systolic pressure. Aortic Valve The aortic valve is normal in structure and function. Pulmonic Valve The pulmonic valve is not well visualized. Great Vessels The aortic root is normal size. Pericardium/Pleura There is no pericardial effusion. Interpretation Summary The study was technically limited with all images being suboptimal in quality. The left ventricular size, thickness and function are normal. LVEF = 60-70%. The right ventricle is not well visualized. The aortic valve is normal in structure and function. The mitral valve is grossly normal. MD Courtney Balderrama 07/18/2018 03:22 PM
[2018-07-18] MEDS ORDERED: BUDESONIDE/FORMETEROL FUMARATE 160/4.5 mcg INHALER IH SCH (22:00)
== END 2018-07-18 15:22 | disposition home or self-care (01) | DRG 139 ==
LOC: JER 17:59 → JERBED 07-15 00:14 → INTOOBSV 07-15 00:14 → OBSVTOIN 07-15 09:09 → J4S 07-15 17:26
PROVIDERS: ADMIT Internal Medicine; ATTEND Internal Medicine
DX: J18.9 Pneumonia, unspecified organism (principal); D64.9 Anemia, unspecified; E66.01 Morbid (severe) obesity due to excess calories; Z68.42 Body mass index [BMI] 45.0-49.9, adult; R55 Syncope and collapse; J45.901 Unspecified asthma with (acute) exacerbation
CPT/HCPCS: 36415; 70450-TC; 71046-TC-FY; 71260-TC; 72170-TC-FY; 80048; 80053; 81003; 82550; 83735; 84100; 84484; 84703; 85025; 85027; 86850; 86900; 86901; 87040; 87804; 93005; 93010; 93306-TC; 94150; 94640; 94761; 99283-25; G0378; J1644; J7030

== ENCOUNTER 2020-07-03 10:10 | Emergency (ER) | payer OTHER ==
[2020-07-03 10:23] VITALS: BMI 47.0
[2020-07-03] MEDS ORDERED: LACTATED RINGERS SOLUTION 1000 ML INFUS.BAG IV ONE (10:55)
[2020-07-03] MEDS ORDERED: MAG HYDROX/AL HYDROX/SIMETH 30 ML UNIT-DOSE CUP PO ONE (10:55)
[2020-07-03] MEDS ORDERED: FAMOTIDINE 20 MG/50 ML IVPB 20 MG/50 ML MG IVPB ONE (10:55)
[2020-07-03] MEDS ORDERED: ONDANSETRON 4 MG/2 ML VIAL IVPB ONE (10:55)
--- NOTE | 2020-07-03 11:13 | PDOC ---
History of Present Illness - General Chief Complaint: Vomiting/Diarrhea Stated Complaint: NAUSEA/VOMITING Time Seen by Provider: 07/03/20 10:54 History Source: Patient Exam Limitations: No Limitations - History of Present Illness Travel History: No Initial Comments: 07/03/20 11:20 44y F with PMH of Anemia, PSH of gastric sleeve, cholecystectomy, SBO, R oopherectomy presenting to the ER for diarrhea x1 week. Pt states she is going to the bathroom 4 times every hour with loose stools. Also endorsing diffuse abdominal pain and feeling nauseous with bowel movements. Pt does not recall eating anything unusual prior to start of symptoms. Denies sick contacts, chest pain, sob, fever, urinary symptoms, flank pain, vaginal bleeding, vaginal discharge. She states she has not been able to eat anything. PMD: PMH: see hpi PSH: see hpi Meds: none Allergies: IV contrast Social: denies Past History - Medical History Allergies/Adverse Reactions: Allergies Allergy/AdvReac Type Severity Reaction Status Date / Time Iodinated Contrast Media Allergy Verified 07/03/20 11:57 iv contrast Allergy Uncoded 07/03/20 10:18 Home Medications: Ambulatory Orders Famotidine [Pepcid -] 20 mg PO BID #14 tablet 07/03/20 Ondansetron [Zofran *Odt*] 4 mg SL TID #21 od.tablet 07/03/20 Anemia: Yes Asthma: Yes Cancer: No Cardiac Disorders: No CVA: No COPD: No CHF: No Dementia: No Diabetes: No GI Disorders: No Disorders: No HTN: No Hypercholesterolemia: No Liver Disease: No Seizures: No Thyroid Disease: No - Surgical History Abdominal Surgery: Yes (2008 SB) Appendectomy: No Cardiac Surgery: No Cholecystectomy: Yes (2011) Lung Surgery: No Neurologic Surgery: No Orthopedic Surgery: Yes (Left wrist 2011) - Reproductive History Is Patient Now?: No - Psycho-Social/Smoking History Smoking History: Never smoked Have you smoked in the past 12 months: No - Substance Abuse Hx (Audit-C & DAST Scrn) How often the patient has a drink containing alcohol: Monthly or less Score: In Men: 4 or > Positive; In Women: 3 or > Positive: 1 Screen Result (Pos requires Nsg. Audit-10AR): Negative Review of Systems - Review of Systems Constitutional: Yes: Chills HEENTM: No: Symptoms Reported Respiratory: No: Symptoms reported Cardiac (ROS): No: Symptoms Reported ABD/GI: Yes: See HPI : No: Symptoms Reported Musculoskeletal: No: Symptoms Reported Integumentary: No: Symptoms Reported Neurological: No: Symptoms reported *Physical Exam - Vital Signs Last Vital Signs Temp Pulse Resp BP Pulse Ox 97.5 F L 129 H 18 131/83 99 07/03/20 10:19 07/03/20 10:19 07/03/20 10:19 07/03/20 10:19 07/03/20 10:19 - Physical Exam General Appearance: Yes: Appropriately Dressed, Obese. No: Apparent Distress HEENT: positive: EOMI, EMILY. negative: Scleral Icterus (R), Scleral Icterus (L) Neck: positive: Trachea midline, Supple. negative: Lymphadenopathy (R), Lymphadenopathy (L) Respiratory/Chest: positive: Lungs Clear, Normal Breath Sounds. negative: Crackles, Rales, Rhonchi, Stridor, Wheezing Cardiovascular: positive: Regular Rhythm, S1, S2, Tachycardia. negative: Edema, JVD, Murmur Vascular Pulses: Dorsalis-Pedis (R): 2+, Doralis-Pedis (L): 2+ Gastrointestinal/Abdominal: positive: Normal Bowel Sounds, Soft, Tenderness (diffuse tenderness). negative: Guarding, Rebound, Hernia, Mass Musculoskeletal: negative: CVA Tenderness Extremity: positive: Normal Capillary Refill. negative: Pedal Edema, Swelling, Calf Tenderness Integumentary: positive: Normal Color, Dry, Warm Neurologic: positive: resolution expert II-XII NML intact, Fully Oriented, Alert, Normal Mood/Affect, Normal Response, Motor Strength 5/5 ED Treatment Course - LABORATORY CBC & Chemistry Diagram: 07/03/20 11:05 07/03/20 11:05 Medical Decision Making - Medical Decision Making 07/03/20 19:21 44y F presenting for diarrhea, n/v. vitals: tachycardic, afebarile. ddx includes GE, colitis, lower suspicion for sbo, appendicitis, pyelonephritis/uti, stone -labs: ua, lipase, preg, cbc, cmp -iv fluids, pepcid, maalox, ofirmev, zofran. labs show no leukocytosis, mild transaminitis. not , no uti. no tenderness on repeat exam; does not require imaging at this time. will po challenge. 07/03/20 19:22 pt feeilng better, tolerating liquids. will dc home. given referral to gi. advised to f/u with pmd. dc home, return precautions provided. vitals wnl. Discharge - Discharge Information Problems reviewed: Yes Clinical Impression/Diagnosis: Diarrhea Qualifiers: Diarrhea type: unspecified type Qualified Code(s): R19.7 - Diarrhea, unspecified Nausea & vomiting Qualifiers: Vomiting type: unspecified Vomiting Intractability: non-intractable Qualified Code(s): R11.2 - Nausea with vomiting, unspecified Condition: Improved Disposition: HOME - Admission No - Additional Discharge Information Prescriptions: Famotidine [Pepcid -] 20 mg PO BID #14 tablet Ondansetron [Zofran *Odt*] 4 mg SL TID #21 od.tablet - Follow up/Referral Referrals: Philipp Gonzalez MD [Primary Care Provider] - - Patient Discharge Instructions Patient Printed Discharge Instructions: Diarrhea, DI for Vomiting -- Adult Additional Instructions: You were seen in the ER today for diarrhea, nausea and vomiting. The blood tests show higher liver enzymes but otherwise normal. This is likely due to marycruz roenteritis. I recommend that you drink plenty of fluids. Stay well hydrated. A prescription for a nausea medication and for acid was sent to the pharmacy [place]. Take it as directed. I recommend that you follow up with your doctor as well as a GI doctor. Referral is provided below. Come back to the ER if you have worsening pain, are continuously vomiting, you pass out or if any new or concerning symptom develops. Thank you - Post Discharge Activity Work/Back to School Note: Back to Work
[2020-07-03] MEDS ORDERED: ACETAMINOPHEN 1000 MG/100 ML VIAL (NON FORMULARY) IVPB ONE (11:24)
--- OUTSIDE RECORDS SUMMARY | 2020-07-03 11:39 | XMS ---
:1975 Author Organization [facility] Care Team Providers Name Role Phone RICHELLE PERALTA HKATHRYN Unavailable Unavailable GIBRAN Orellana, TYREL Unavailable Unavailable SHAGUFTA LAUGHLIN Unavailable Unavailable ED STAFF PHYSICIAN, STAFF Unavailable Unavailable ED STAFF PHYSICIAN Unavailable Unavailable Richelle, Osama Unavailable Unavailable Richelle, Osama Unavailable Unavailable Richelle, Osama Unavailable Unavailable Richelle, Osama Unavailable Unavailable Richelle, Osama Unavailable Unavailable Richelle, Osama Unavailable Unavailable Richelle, Osama Unavailable Unavailable Richelle, Osama Unavailable Unavailable Richelle, Osama Unavailable Unavailable Richelle, Osama Unavailable Unavailable Richelle, Osama Unavailable Unavailable Richelle, Osama Unavailable Unavailable Richelle, Osama Unavailable Unavailable Richelle, Osama Unavailable Unavailable Richelle, Osama Unavailable Unavailable ED STAFF PHYSICIANLILY Unavailable Unavailable NOÉ CHINCHILLA Unavailable Unavailable Re-disclosure Warning The records that you are about to access may contain information from federally- assisted alcohol or drug abuse programs. If such information is present, then the following federally mandated warning applies: This information has been disclosed to you from records protected by federal confidentiality rules (42 CFR part 2). The federal rules prohibit you from making any further disclosure of this information unless further disclosure is expressly permitted by the written consent of the person to whom it pertains or as otherwise permitted by 42 CFR part 2. A general authorization for the release of medical or other information is NOT sufficient for this purpose. The Federal rules restrict any use of the information to criminally investigate or prosecute any alcohol or drug abuse patient.The records that you are about to access may contain highly sensitive health information, the redisclosure of which is protected by Article 27-F of the [facility] Public Health law. If you continue you may haveaccess to information: Regarding HIV / AIDS; Provided by facilities licensed or operated by the [facility] Office of Mental Health; or Provided by the [facility] Office for People With Developmental Disabilities. If such information is present, then the following [facility] mandated warning applies: This information has been disclosed to you from confidential records which are protected by state law. State law prohibits you from making any further disclosure of this information without the specific written consent of the person to whom it pertains, or as otherwise permitted by law. Any unauthorized further disclosure in violation of state law may result in a fine or [place] [facility] sentence or both. A general authorization for the release of medical or other information is NOT sufficient authorization for further disclosure. Encounters Encounter Providers Location Date Indications Data Source(s ) Inpatient Attender: Panchito H-HAL5 06/11/2020 [facility] SayeghAttender: 10:50:00 AM EDT [facility] STAFF ED STAFF - 06/16/2020 PHYSICIANAdmitter: 02:00:00 PM EDT Panchito Osunaerrer: Panchito Peoples Patient discharged. Emergency Attender: ED STAFF H 05/16/2020 08:37:00 AM [facility] PHYSICIANAttender: STAFF ED EDT - 05/16/2020 [facility] STAFF PHYSICIANAdmitter: ED 01:00:00 PM EDT STAFF PHYSICIAN Patient discharged. Emergency Attender: NOÉ UMANZOR 11/20/2019 02:29 :00 PM [facility] [place] CAttender: STAFF ED STAFF EST - 11/20/2019 [facility] PHYSICIANAdmitter: NOÉ 08:45:00 PM DEVI Smith Patient discharged. Emergency Attender: LILY WEBSTER STAFF 10/31/2019 07:46:00 AM [facility] PHYSICIANAttender: STAFF ED EST - 10/31/2019 [facility] STAFF PHYSICIANAdmitter: LILY 11:06:00 AM EST ED STAFF PHYSICIAN Patient discharged. Inpatient Attender: KATHRYN PEOPLES H-HAL5 06/27/2019 11:47:00 AM [facility] PERALTA HAdmitter: KATHRYN EDT - 06/30/2019 [facility] RICHELLE PERALTA HReferrer: 03:00:00 AM EDT KATHRYN Rodriguez Patient discharged. Inpatient Attender: SHAGUFTA Rodriguez-HAL5 06/19/2019 09:19:00 [facility] EAGLEAdmitter: SHAGUFTA GARCIA EDT - 06/20/2019 [facility] MICHELLE EAGLEReferrer: 05:30:00 PM EDT SHAGUFTA EAGLE Patient discharged. Inpatient Attender: TYREL H-HAL6 12/03/2018 01:31:00 PM [facility] GIBRAN SARAH EDT - 12/06/2018 [facility] OAdmitter: TYREL 01:40:00 PM EDT GIBRAN SARAH OReferrer: TYREL SARAH O Immunizations Vaccine Date Status Description Data Source(s) New in 2011. IIV4 06/13/2020 07:50:00 completed [facility] EDT Center New in 2011. IIV4 06/20/2019 05:02:00 completed [facility] EDT Center Insurance Providers Payer name Policy type Policy ID Covered Covered alliance party's Policy P kaci / Coverage alliance party ID relationship to [facility] ormation type lundy LANDON [id number] [facility] LANDON CARE [id number] LANDON CARE W [id number] [place] L[place]ON CARE [id number] 01 [id number] [place] L[place]ON CARE [id number] [place] [id number] SP [id number] 01 [id number] 01 [id number] 500 LANDON CARE W [id number] [place] CARE [id number] [place] W [id number] [facility] W [id number] [place] Problems, Conditions, and Diagnoses Code Display Name Description Problem Type Effective Data Dates Source(s) E66.01 Morbid (severe) MORBID (SEVERE) Diagnosis 06/16/2020 Romelia t obesity due to OBESITY DUE TO 02:00:00 PM Alfa hs excess calories EXCESS CALORIES [facility] F41.9 Anxiety disorder, ANXIETY DISORDER, Diagnosis 06/16/2020 unspecified UNSPECIFIED 02:00:00 PM [facility] J45.909 Unspecified asthma, UNSPECIFIED ASTHMA, Diagnosis 020 uncomplicated UNCOMPLICATED 02:00:00 PM [facility] D50.0 Iron deficiency IRON DEFICIENCY Diagnosis 06/16/2020 Romelia t anemia secondary to ANEMIA SECONDARY TO 02:00:0 0 PM [facility] blood loss (chronic) BLOOD LOSS (CHRONIC) [facility] Z68.42 Body mass index BODY MASS INDEX Diagnosis 06/16/2020 Romelia t (BMI) 45.0-49.9, (BMI) 45.0-49.9, 02:00:00 PM Albert osep adult ADULT [facility] D62 Acute ACUTE Diagnosis 06/11/2020 posthemorrhagic POSTHEMORRHAGIC 10:50:00 AM Gurdeep ephs anemia ANEMIA [facility] Y99.9 Unspecified external UNSPECIFIED EXTERNAL Diagnosis 05/16 cause status CAUSE STATUS 08:37:00 AM [facility] Y92.[address] in UNSP PLACE IN UNS Diagnosis 020 unspecified NON-INSTITUT 08:37:00 AM [facility] non-institutional (PRIVATE) RESIDENCE [facility] Medical (private) residence PLACE Cente r as the place of occurrence of the external cause Y93.9 Activity, ACTIVITY, Diagnosis 05/16/2020 unspecified UNSPECIFIED 08:37:00 AM [facility] X58.XXXA Exposure to other EXPOSURE TO OTHER Diagnosis 05/16/2020 specified factors, SPECIFIED FACTORS, 08:37:00 AM [facility] initial encounter INITIAL ENCOUNTER [facility] T37.3X5A Adverse effect of ADVERSE EFFECT OF Diagnosis 05/16/2020 other antiprotozoal OTHER ANTIPROTOZOAL 08:37:0 0 AM [facility] drugs, initial DRUGS, INIT ENCNTR EDT [facility] encounter Center T78.40XA Allergy, ALLERGY, Diagnosis 05/16/2020 unspecified, initial UNSPECIFIED, INITIAL 08:37 :00 AM [facility] encounter ENCOUNTER EDT Medical Center A64 Unspecified sexually UNSPECIFIED SEXUALLY Diagnosis 11/19 [facility] transmitted disease TRANSMITTED DISEASE 02:29:0 0 PM [facility] R55 Syncope and collapse SYNCOPE AND COLLAPSE Diagnosis 11/19 [facility] 02:29:00 PM [facility] Z11.4 Encounter for ENCOUNTER FOR Diagnosis 10/31/2019 [facility] screening for human SCREENING FOR HUMAN 07:46:0 0 AM [facility] immunodeficiency IMMUNODEFICIENCY EST [facility] virus [HIV] VIRUS Center Z11.3 Encounter for ENCNTR SCREEN FOR Diagnosis 10/31/2019 Romelia onofre screening for INFECTIONS W SEXL 07:46:00 AM Gurdeep ephs infections with a MODE OF TRANSMISS [facility] sexual Cent er mode of transmission I10 Essential (primary) ESSENTIAL (PRIMARY) Diagnosis 020 [facility] hypertension HYPERTENSION 07:46:00 AM [facility] D64.9 Anemia, unspecified ANEMIA, UNSPECIFIED Diagnosis 019 [facility] 03:00:00 AM [facility] H66.92 Otitis media, OTITIS MEDIA, Diagnosis 06/30/2019 unspecified, left UNSPECIFIED, LEFT 03:00:00 AM [facility] ear EAR T [facility] R42 Dizziness and DIZZINESS AND Diagnosis 06/30/2019 giddiness GIDDINESS 03:00:00 AM [facility] N39.0 Urinary tract URINARY TRACT Diagnosis 06/30/2019 infection, site not INFECTION, SITE NOT 03:00:0 0 AM [facility] specified SPECIFIED [facility] K56.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, Diagnosis 06/30/2019 Romelia onofre intestinal UNSP TO PARTIAL 03:00:00 AM Alfa hs obstruction, VERSUS COMPLETE OBST EDT Mt dical unspecified as to Center partial versus complete obstruction Z71.3 Dietary counseling DIETARY COUNSELING Diagnosis 9 and surveillance AND SURVEILLANCE 03:00:00 AM [facility] J45.901 Unspecified asthma UNSPECIFIED ASTHMA Diagnosis 9 [facility] with (acute) WITH (ACUTE) 11:47:00 AM [facility] exacerbation EXACERBATION [facility] H60.92 Unspecified otitis UNSPECIFIED OTITIS Diagnosis 9 [facility] externa, left ear EXTERNA, LEFT EAR 05:30:00 PM [facility] Results ID Date Data Source HematologyRou.[id number] 06/16/2020 05:45:00 AM T Emanuel nt [facility] 0400 Name Value Range Interpretation Description Data Sup porting Code Source(s) Document(s ) Leukocytes 4.4-11.0 <content Saint [#/volume] in styleCode="Bold Teresa Blood by ">White Blood Medical Automated count Cell Count Center </content>7.10 KCUMM<content styleCode="Ital ics"> (4.4-11.0 KCUMM)</content > Erythrocytes 4.0-5.1 <content Saint [#/volume] in styleCode="Bold Teresa Blood by ">Red Blood Medical Automated count Cell Count Center </content>4.16 MCUMM<content styleCode="Ital ics"> (4.0-5.1 MCUMM)</content > Hemoglobin 12.3-16. Below low normal <content Saint [Mass/volume] in 0 styleCode="Bold Teresa Blood ">Hemoglobin Medical </content>8.9 Center G/DL L<content styleCode="Ital ics"> (12.3-16.0 G/DL)</content> Hematocrit 36.0-46. Below low normal <content [facility] [Volume 0 styleCode="Bold Teresa Fraction] of ">Hematocrit Medical Blood by </content>30.8 Center Automated count % L<content styleCode="Ital ics"> (36.0-46.0 %)</content> Erythrocyte mean 26.0-34. Below low normal <content Saint corpuscular 0 styleCode="Bold Teresa hemoglobin ">Mean Medical [Entitic mass] Corposcular Center by Automated Hemoglobin count </content>21.4 PG L<content styleCode="Ital ics"> (26.0-34.0 PG)</content> Erythrocyte mean 80.0-100 <content Saint corpuscular .0 styleCode="Bold Teresa volume [Entitic ">Mean Medical volume] by Corpuscular Center Automated count Volume </content>74.0 FL<content styleCode="Ital ics"> (80.0-100.0 FL)</content> Erythrocyte mean 32.0-37. Below low normal <content Saint corpuscular 0 styleCode="Bold Teresa hemoglobin ">Mean Corpus. Medical concentration Hgb Center [Mass/volume] by Concentration Automated count (MCHC) </content>28.9 G/DL L<content styleCode="Ital ics"> (32.0-37.0 G/DL)</content> Platelet mean 8.0-11.0 <content Saint volume [Entitic styleCode="Bold Teresa volume] in Blood ">Mean Platelet Medical by Automated Volume Center count </content>8.6 FL<content styleCode="Ital ics"> (8.0-11.0 FL)</content> Erythrocyte 11.5-14. Above high <content [facility] distribution 5 normal styleCode="Bold Teresa width [Ratio] by ">Red Cell Medical Automated count Distribution Center Width </content>23.7 % H<content styleCode="Ital ics"> (11.5-14.5 %)</content> Platelets 130-400 <content Saint [#/volume] in styleCode="Bold Teresa Blood by ">Platelet Medical Automated count Count Center </content>271 KCUMM<content styleCode="Ital ics"> (130-400 KCUMM)</content > UNK 1.6-7.3 <content Saint styleCode="Bold Teresa ">Neutrophil Medical Count Center </content>3.61 KCUMM<content styleCode="Ital ics"> (1.6-7.3 KCUMM)</content > Lymphocytes 24.0-44. <content Saint [#/volume] in 0 styleCode="Bold Teresa Blood by ">Lymphocyte Medical Automated count </content>39.0 Center %<content styleCode="Ital ics"> (24.0-44.0 %)</content> Neutrophils 36-66 <content Saint [#/volume] in styleCode="Bold Teresa Blood by ">Neutrophil Medical Automated count </content>50.9 Center %<content styleCode="Ital ics"> (36-66 %)</content> Monocytes 3.0-10.0 <content Saint [#/volume] in styleCode="Bold Teresa Blood by ">Monocyte Medical Automated count </content>7.0 Center %<content styleCode="Ital ics"> (3.0-10.0 %)</content> UNK 1.0-4.8 <content Saint styleCode="Bold Teresa ">Lymphocyte Medical Count Center </content>2.77 KCUMM<content styleCode="Ital ics"> (1.0-4.8 KCUMM)</content > UNK 0.2-0.9 <content Saint styleCode="Bold Teresa ">Monocyte Medical Count Center </content>0.50 KCUMM<content styleCode="Ital ics"> (0.2-0.9 KCUMM)</content > UNK 0.0-0.6 <content Saint styleCode="Bold Teresa ">Eosinophil Medical Count Center </content>0.17 KCUMM<content styleCode="Ital ics"> (0.0-0.6 KCUMM)</content > Eosinophils 0-5.0 <content Saint [#/volume] in styleCode="Bold Teresa Blood by ">Eosinophil Medical Automated count </content>2.4 Center %<content styleCode="Ital ics"> (0-5.0 %)</content> UNK 0.0 <content Saint styleCode="Bold Teresa ">Nucleated Red Medical Blood Cell Center Count </content>0.00 KCUMM<content styleCode="Ital ics"> (0.0 KCUMM)</content > UNK 0 <content Saint styleCode="Bold Teresa ">Nucleated Red Medical Blood Cell Center </content>0.0 /100<content styleCode="Ital ics"> (0 /100)</content> Basophils 0.0-1.0 <content Saint [#/volume] in styleCode="Bold Teresa Blood by ">Basophil Medical Automated count </content>0.4 Center %<content styleCode="Ital ics"> (0.0-1.0 %)</content> UNK 0.0-0.3 <content Saint styleCode="Bold Teresa ">Basophil Medical Count Center </content>0.03 KCUMM<content styleCode="Ital ics"> (0.0-0.3 KCUMM)</content > UNK 0-0.1 <content Saint styleCode="Bold Teresa ">Immature Medical Granulocyte Center Count </content>0.02 KCUMM<content styleCode="Ital ics"> (0-0.1 KCUMM)</content > UNK < 1 <content Saint styleCode="Bold Teresa ">Immature Medical Granulocyte Center Ratio </content>0.3 %<content styleCode="Ital ics"> (< 1 %)</content> ID Date Data Source GFR(Creatinine).[id number] 06/16/2020 05:45:00 AM EDT Emanuel [facility] 0-0400 Name Value Range Interpretation Code Description Data Nazanin rce(s) Supporting Document(s ) UNK > 60 <content [facility] styleCode="Bold"> Medical Cent er EGFR </content>186 GFR<content styleCode="Italic s"> (> 60 GFR)</content> ID Date Data Source Coagulation 06/16/2020 05:45:00 AM [facility] ical Center Rout.[id number] EDT Name Value Range Interpretation Description Data Sup porting Code Source(s) Document(s ) INR in 0.80-1.2 <content Saint Platelet poor 0 styleCode="Bold" Teresa plasma by >INR Medical Coagulation </content>0.99 Center assay #<content styleCode="Itali cs"> (0.80-1.20 #)</content> UNK 9.0-13.0 <content Saint styleCode="Bold" Teresa >Protime Medical </content>11.0 Center SEC<content styleCode="Itali cs"> (9.0-13.0 SEC)</content> aPTT in 25.1-36. <content Saint Platelet poor 5 styleCode="Bold" Teresa plasma by >Partial Medical Coagulation Thromboplastin Center assay Time </content>29.7 SEC<content styleCode="Itali cs"> (25.1-36.5 SEC)</content> ID Date Data Source [facility].[id number] 06/16/2020 05:45:00 AM EDT [facility] Center Name Value Range Interpretation Description Data Sup porting Code Source(s) Document(s ) Sodium 137-145 Below low normal <content Saint [Moles/volume] styleCode="Lisa Youngs in Serum or d">Sodium Medical Plasma </content>136 Center MEQ/L L<content styleCode="Jeanie lics"> (137-145 MEQ/L)</conten t> Potassium 3.5-5.3 <content Saint [Moles/volume] styleCode="Lisa Youngs in Serum or d">Potassium Medical Plasma </content>4.2 Center MEQ/L<content styleCode="Jeanie lics"> (3.5-5.3 MEQ/L)</conten t> Chloride 98-107 <content Saint [Moles/volume] styleCode="Lisa Youngs in Serum or d">Chloride Medical Plasma </content>105 Center MEQ/L<content styleCode="Jeanie lics"> (98-107 MEQ/L)</conten t> UNK 7-17 <content Saint styleCode="Lisa Youngs d">BUN Medical </content>12 Center MG/DL<content styleCode="Jeanie lics"> (7-17 MG/DL)</conten t> Carbon 22-30 <content Saint dioxide, total styleCode="Lisa Youngs [Moles/volume] d">Carbon Medical in Serum or Dioxide Center Plasma </content>29 MEQ/L<content styleCode="Jeanie lics"> (22-30 MEQ/L)</conten t> Creatinine 0.5-1.3 Below low normal <content Saint [Mass/volume] styleCode="Lisa Youngs in Serum or d">Creatinine Medical Plasma </content>0.4 Center MG/DL L<content styleCode="Jeanie lics"> (0.5-1.3 MG/DL)</conten t> Glucose 74-106 <content Saint [Mass/volume] styleCode="Lisa Moore in Serum or d">Glucose Medical Plasma </content>98 Center MG/DL<content styleCode="Jeanie lics"> (74-106 MG/DL)</conten t> UNK > 60 <content Saint styleCode="Lisa Youngs d">EGFR Medical </content>186 Center GFR<content styleCode="Jeanie lics"> (> 60 GFR)</content> Calcium 8.4-10.2 <content Saint [Mass/volume] styleCode="Lisa Moore in Serum or d">Calcium Medical Plasma </content>8.9 Center MG/DL<content styleCode="Jeanie lics"> (8.4-10.2 MG/DL)</conten t> ID Date Data Source Liver 06/15/2020 06:55:00 AM EDT [facility] Profile.[id number] Name Value Range Interpretation Description Data Sup porting Code Source(s) Document(s ) Alkaline 38-126 <content [facility] phosphatase styleCode="Bold"> Teresa [Enzymatic Alkaline Medical activity/volume] Phosphatase (ALP) Cente r in Serum or Plasma </content>64 IU/L<content styleCode="Italic s"> (38-126 IU/L)</content> Aspartate 14-36 <content Saint aminotransferase styleCode="Bold"> Alfa hs [Enzymatic Aspartate Medical activity/volume] Aminotransferase Center in Serum or Plasma (AST) </content>29 IU/L<content styleCode="Italic s"> (14-36 IU/L)</content> Alanine 7-30 <content Saint aminotransferase styleCode="Bold"> Alfa hs [Enzymatic Alanine Medical activity/volume] Aminotransferase Center in Serum or Plasma (ALT) </content>16 IU/L<content styleCode="Italic s"> (7-30 IU/L)</content> Albumin 3.5-5.0 Below low <content Saint [Mass/volume] in normal styleCode="Bold"> Alfa hs Serum or Plasma Albumin Medical </content>3.3 Center G/DL L<content styleCode="Italic s"> (3.5-5.0 G/DL)</content> Bilirubin.total 0.2-1.3 Below low <content Saint [Mass/volume] in normal styleCode="Bold"> Alfa hs Serum or Plasma Bilirubin Total Medical </content>< 0.2 Center MG/DL L<content styleCode="Italic s"> (0.2-1.3 MG/DL)</content> ID Date Data Source HematologyRou.[id number] 06/15/2020 06:55:00 AM EDT Emanuel [facility] 0400 Name Value Range Interpretation Description Data Sup porting Code Source(s) Document(s ) Leukocytes 4.4-11.0 <content Saint [#/volume] in styleCode="Bold Teresa Blood by ">White Blood Medical Automated count Cell Count Center </content>6.82 KCUMM<content styleCode="Ital ics"> (4.4-11.0 KCUMM)</content > Hemoglobin 12.3-16. Below low normal <content Saint [Mass/volume] in 0 styleCode="Bold Teresa Blood ">Hemoglobin Medical </content>9.0 Center G/DL L<content styleCode="Ital ics"> (12.3-16.0 G/DL)</content> Erythrocytes 4.0-5.1 <content Saint [#/volume] in styleCode="Bold Teresa Blood by ">Red Blood Medical Automated count Cell Count Center </content>4.19 MCUMM<content styleCode="Ital ics"> (4.0-5.1 MCUMM)</content > Hematocrit 36.0-46. Below low normal <content Saint [Volume 0 styleCode="Bold Teresa Fraction] of ">Hematocrit Medical Blood by </content>31.2 Center Automated count % L<content styleCode="Ital ics"> (36.0-46.0 %)</content> Erythrocyte mean 80.0-100 <content Saint corpuscular .0 styleCode="Bold Teresa volume [Entitic ">Mean Medical volume] by Corpuscular Center Automated count Volume </content>74.5 FL<content styleCode="Ital ics"> (80.0-100.0 FL)</content> Erythrocyte mean 32.0-37. Below low normal <content Saint corpuscular 0 styleCode="Bold Teresa hemoglobin ">Mean Corpus. Medical concentration Hgb Center [Mass/volume] by Concentration Automated count (MCHC) </content>28.8 G/DL L<content styleCode="Ital ics"> (32.0-37.0 G/DL)</content> Erythrocyte mean 26.0-34. Below low normal <content Saint corpuscular 0 styleCode="Bold Teresa hemoglobin ">Mean Medical [Entitic mass] Corposcular Center by Automated Hemoglobin count </content>21.5 PG L<content styleCode="Ital ics"> (26.0-34.0 PG)</content> Erythrocyte 11.5-14. Above high <content Saint distribution 5 normal styleCode="Bold Teresa width [Ratio] by ">Red Cell Medical Automated count Distribution Center Width </content>23.2 % H<content styleCode="Ital ics"> (11.5-14.5 %)</content> Platelets 130-400 Below low normal <content Saint [#/volume] in styleCode="Bold Teresa Blood by ">Platelet Medical Automated count Count Center </content>120 KCUMM L<content styleCode="Ital ics"> (130-400 KCUMM)</content > Platelet mean 8.0-11.0 <content Saint volume [Entitic styleCode="Bold Teresa volume] in Blood ">Mean Platelet Medical by Automated Volume Center count </content>8.8 FL<content styleCode="Ital ics"> (8.0-11.0 FL)</content> UNK 1.0-4.8 <content Saint styleCode="Bold Teresa ">Lymphocyte Medical Count Center </content>2.87 KCUMM<content styleCode="Ital ics"> (1.0-4.8 KCUMM)</content > UNK 1.6-7.3 <content Saint styleCode="Bold Teresa ">Neutrophil Medical Count Center </content>3.42 KCUMM<content styleCode="Ital ics"> (1.6-7.3 KCUMM)</content > Neutrophils 36-66 <content Saint [#/volume] in styleCode="Bold Teresa Blood by ">Neutrophil Medical Automated count </content>50.2 Center %<content styleCode="Ital ics"> (36-66 %)</content> Lymphocytes 24.0-44. <content Saint [#/volume] in 0 styleCode="Bold Teresa Blood by ">Lymphocyte Medical Automated count </content>42.1 Center %<content styleCode="Ital ics"> (24.0-44.0 %)</content> UNK 0.2-0.9 <content Saint styleCode="Bold Teresa ">Monocyte Medical Count Center </content>0.39 KCUMM<content styleCode="Ital ics"> (0.2-0.9 KCUMM)</content > Eosinophils 0-5.0 <content Saint [#/volume] in styleCode="Bold Teresa Blood by ">Eosinophil Medical Automated count </content>1.3 Center %<content styleCode="Ital ics"> (0-5.0 %)</content> Monocytes 3.0-10.0 <content Saint [#/volume] in styleCode="Bold Teresa Blood by ">Monocyte Medical Automated count </content>5.7 Center %<content styleCode="Ital ics"> (3.0-10.0 %)</content> UNK 0.0-0.6 <content Saint styleCode="Bold Teresa ">Eosinophil Medical Count Center </content>0.09 KCUMM<content styleCode="Ital ics"> (0.0-0.6 KCUMM)</content > Basophils 0.0-1.0 <content Saint [#/volume] in styleCode="Bold Teresa Blood by ">Basophil Medical Automated count </content>0.4 Center %<content styleCode="Ital ics"> (0.0-1.0 %)</content> UNK 0.0-0.3 <content Saint styleCode="Bold Teresa ">Basophil Medical Count Center </content>0.03 KCUMM<content styleCode="Ital ics"> (0.0-0.3 KCUMM)</content > UNK 0 <content Saint styleCode="Bold Teresa ">Nucleated Red Medical Blood Cell Center </content>0.0 /100<content styleCode="Ital ics"> (0 /100)</content> UNK 0-0.1 <content Saint styleCode="Bold Teresa ">Immature Medical Granulocyte Center Count </content>0.02 KCUMM<content styleCode="Ital ics"> (0-0.1 KCUMM)</content > UNK < 1 <content [facility] styleCode="Bold Teresa ">Immature Medical Granulocyte Center Ratio </content>0.3 %<content styleCode="Ital ics"> (< 1 %)</content> UNK 0.0 <content [facility] styleCode="Bold Teresa ">Nucleated Red Medical Blood Cell Center Count </content>0.00 KCUMM<content styleCode="Ital ics"> (0.0 KCUMM)</content > ID Date Data Source GFR(Creatinine).[id number] 06/15/2020 06:55:00 AM EDT [facility] 0-0400 Name Value Range Interpretation Code Description Data Nazanin rce(s) Supporting Document(s ) UNK > 60 <content [facility] styleCode="Bold"> Medical Cent er EGFR </content>186 GFR<content styleCode="Italic s"> (> 60 GFR)</content> ID Date Data Source Coagulation 06/15/2020 06:55:00 AM [facility] Rout.[id number] EDT Name Value Range Interpretation Description Data Sup porting Code Source(s) Document(s ) UNK 9.0-13.0 <content [facility] styleCode="Bold" Teresa >Protime Medical </content>11.0 Center SEC<content styleCode="Itali cs"> (9.0-13.0 SEC)</content> aPTT in 25.1-36. <content [facility] Platelet poor 5 styleCode="Bold" Teresa plasma by >Partial Medical Coagulation Thromboplastin Center assay Time </content>30.0 SEC<content styleCode="Itali cs"> (25.1-36.5 SEC)</content> INR in 0.80-1.2 <content [facility] Platelet poor 0 styleCode="Bold" Teresa plasma by >INR Medical Coagulation </content>0.99 Center assay #<content styleCode="Itali cs"> (0.80-1.20 #)</content> ID Date Data Source CHMROUTINECCDA.[id number] 06/15/2020 06:55:00 AM EDT [facility] -0400 Name Value Range Interpretation Description Data Sup porting Code Source(s) Document(s ) UNK >= 1.0 <content [facility] styleCode="Lisa Youngs d">AG Ratio Medical </content>1.3 Center <content styleCode="Jeanie lics"> (>= 1.0 )</content> UNK 2.3-3.5 <content [facility] styleCode="Lisa Youngs d">Globulin Medical </content>2.6 Center G/DL<content styleCode="Jeanie lics"> (2.3-3.5 G/DL)</content > Magnesium 1.6-2.3 <content [facility] [Mass/volume] styleCode="Lisa Youngs in Serum or d">Magnesium Medical Plasma </content>2.2 Center MG/DL<content styleCode="Jeanie lics"> (1.6-2.3 MG/DL)</conten t> Phosphate 2.5-4.5 <content [facility] [Mass/volume] styleCode="Lisa Tereas in Serum or d">Phosphorus Medical Plasma </content>3.8 Center MG/DL<content styleCode="Jeanie lics"> (2.5-4.5 MG/DL)</conten t> Protein 6.3-8.2 Below low normal <content [facility] [Mass/volume] styleCode="Lisa Teresa in Serum or d">Total Medical Plasma Protein Center </content>5.9 G/DL L<content styleCode="Jeanie lics"> (6.3-8.2 G/DL)</content > ID Date Data Source [facility].[id number] 06/15/2020 06:55:00 AM EDT [facility] Name Value Range Interpretation Description Data Sup porting Code Source(s) Document(s ) Potassium 3.5-5.3 <content [facility] [Moles/volume] in styleCode="Bold"> Braulio banner Serum or Plasma Potassium Medical </content>4.2 Center MEQ/L<content styleCode="Italic s"> (3.5-5.3 MEQ/L)</content> Sodium 137-145 Below low <content [facility] [Moles/volume] in normal styleCode="Bold"> Braulio banner Serum or Plasma Sodium Medical </content>135 Center MEQ/L L<content styleCode="Italic s"> (137-145 MEQ/L)</content> Carbon dioxide, 22-30 <content [facility] total styleCode="Bold"> Teresa [Moles/volume] in Carbon Dioxide Medical Serum or Plasma </content>24 Center MEQ/L<content styleCode="Italic s"> (22-30 MEQ/L)</content> Chloride 98-107 <content [facility] [Moles/volume] in styleCode="Bold"> Braulio banner Serum or Plasma Chloride Medical </content>107 Center MEQ/L<content styleCode="Italic s"> (98-107 MEQ/L)</content> UNK 7-17 <content [facility] styleCode="Bold"> Teresa BUN </content>12 Medical MG/DL<content Center styleCode="Italic s"> (7-17 MG/DL)</content> Creatinine 0.5-1.3 Below low <content [facility] [Mass/volume] in normal styleCode="Bold"> Alfa hs Serum or Plasma Creatinine Medical </content>0.4 Center MG/DL L<content styleCode="Italic s"> (0.5-1.3 MG/DL)</content> Calcium 8.4-10. <content [facility] [Mass/volume] in 2 styleCode="Bold"> Alfa hs Serum or Plasma Calcium Medical </content>8.6 Center MG/DL<content styleCode="Italic s"> (8.4-10.2 MG/DL)</content> Glucose 74-106 <content [facility] [Mass/volume] in styleCode="Bold"> Alfa hs Serum or Plasma Glucose Medical </content>97 Center MG/DL<content styleCode="Italic s"> (74-106 MG/DL)</content> Alanine 7-30 <content [facility] aminotransferase styleCode="Bold"> Alfa hs [Enzymatic Alanine Medical activity/volume] Aminotransferase Center in Serum or Plasma (ALT) </content>16 IU/L<content styleCode="Italic s"> (7-30 IU/L)</content> Aspartate 14-36 <content [facility] aminotransferase styleCode="Bold"> Alfa hs [Enzymatic Aspartate Medical activity/volume] Aminotransferase Center in Serum or Plasma (AST) </content>29 IU/L<content styleCode="Italic s"> (14-36 IU/L)</content> Alkaline 38-126 <content [facility] phosphatase styleCode="Bold"> Teresa [Enzymatic Alkaline Medical activity/volume] Phosphatase (ALP) Cente r in Serum or Plasma </content>64 IU/L<content styleCode="Italic s"> (38-126 IU/L)</content> UNK > 60 <content [facility] styleCode="Bold"> Teresa EGFR Medical </content>186 Center GFR<content styleCode="Italic s"> (> 60 GFR)</content> Bilirubin.total 0.2-1.3 Below low <content [facility] [Mass/volume] in normal styleCode="Bold"> Alfa hs Serum or Plasma Bilirubin Total Medical </content>< 0.2 Center MG/DL L<content styleCode="Italic s"> (0.2-1.3 MG/DL)</content> Albumin 3.5-5.0 Below low <content [facility] [Mass/volume] in normal styleCode="Bold"> Alfa hs Serum or Plasma Albumin Medical </content>3.3 Center G/DL L<content styleCode="Italic s"> (3.5-5.0 G/DL)</content> ID Date Data Source Liver 06/14/2020 05:26:00 AM EDT [facility] Profile.[id number] Name Value Range Interpretation Description Data Sup porting Code Source(s) Document(s ) Aspartate 14-36 <content [facility] aminotransferase styleCode="Bold"> Alfa hs [Enzymatic Aspartate Medical activity/volume] Aminotransferase Center in Serum or Plasma (AST) </content>20 IU/L<content styleCode="Italic s"> (14-36 IU/L)</content> Alkaline 38-126 <content [facility] phosphatase styleCode="Bold"> Teresa [Enzymatic Alkaline Medical activity/volume] Phosphatase (ALP) Cente r in Serum or Plasma </content>62 IU/L<content styleCode="Italic s"> (38-126 IU/L)</content> Bilirubin.total 0.2-1.3 <content [facility] [Mass/volume] in styleCode="Bold"> Alfa hs Serum or Plasma Bilirubin Total Medical </content>0.2 Center MG/DL<content styleCode="Italic s"> (0.2-1.3 MG/DL)</content> Alanine 7-30 <content [facility] aminotransferase styleCode="Bold"> Alfa hs [Enzymatic Alanine Medical activity/volume] Aminotransferase Center in Serum or Plasma (ALT) </content>15 IU/L<content styleCode="Italic s"> (7-30 IU/L)</content> Albumin 3.5-5.0 Below low <content [facility] [Mass/volume] in normal styleCode="Bold"> Alfa hs Serum or Plasma Albumin Medical </content>3.4 Center G/DL L<content styleCode="Italic s"> (3.5-5.0 G/DL)</content> ID Date Data Source HematologySpeci.[id number] 06/14/2020 05:26:00 AM EDT [facility] Name Value Range Interpretation Description Data Sup porting Code Source(s) Document(s ) C reactive < 3.0 <content [facility] protein styleCode="Bold" Teresa [Mass/volume] in >C-Reactive Medical Serum or Plasma Protein Center </content>0.91 MG/L<content styleCode="Itali cs"> (< 3.0 MG/L)</content> Erythrocyte 0-20 <content [facility] sedimentation styleCode="Bold" Teresa rate by >[facility] Rate ([facility]R) </content>7 MM/hr<content styleCode="Itali cs"> (0-20 MM/hr)</content> ID Date Data Source HematologyRou.[id number] 06/14/2020 05:26:00 AM EDT [facility] 0400 Name Value Range Interpretation Description Data Sup porting Code Source(s) Document(s ) Leukocytes 4.4-11.0 <content [facility] [#/volume] in styleCode="Bold Teresa Blood by ">White Blood Medical Automated count Cell Count Center </content>9.45 KCUMM<content styleCode="Ital ics"> (4.4-11.0 KCUMM)</content > Erythrocyte mean 80.0-100 <content [facility] corpuscular .0 styleCode="Bold Teresa volume [Entitic ">Mean Medical volume] by Corpuscular Center Automated count Volume </content>73.6 FL<content styleCode="Ital ics"> (80.0-100.0 FL)</content> Hematocrit 36.0-46. Below low normal <content [facility] [Volume 0 styleCode="Bold Teresa Fraction] of ">Hematocrit Medical Blood by </content>30.7 Center Automated count % L<content styleCode="Ital ics"> (36.0-46.0 %)</content> Hemoglobin 12.3-16. Below low normal <content [facility] [Mass/volume] in 0 styleCode="Bold Teresa Blood ">Hemoglobin Medical </content>8.8 Center G/DL L<content styleCode="Ital ics"> (12.3-16.0 G/DL)</content> Erythrocytes 4.0-5.1 <content [facility] [#/volume] in styleCode="Bold Teresa Blood by ">Red Blood Medical Automated count Cell Count Center </content>4.17 MCUMM<content styleCode="Ital ics"> (4.0-5.1 MCUMM)</content > Erythrocyte 11.5-14. Above high <content [facility] distribution 5 normal styleCode="Bold Teresa width [Ratio] by ">Red Cell Medical Automated count Distribution Center Width </content>23.1 % H<content styleCode="Ital ics"> (11.5-14.5 %)</content> Erythrocyte mean 32.0-37. Below low normal <content [facility] corpuscular 0 styleCode="Bold Teresa hemoglobin ">Mean Corpus. Medical concentration Hgb Center [Mass/volume] by Concentration Automated count (MCHC) </content>28.7 G/DL L<content styleCode="Ital ics"> (32.0-37.0 G/DL)</content> Erythrocyte mean 26.0-34. Below low normal <content [facility] corpuscular 0 styleCode="Bold Teresa hemoglobin ">Mean Medical [Entitic mass] Corposcular Center by Automated Hemoglobin count </content>21.1 PG L<content styleCode="Ital ics"> (26.0-34.0 PG)</content> Platelet mean 8.0-11.0 <content [facility] volume [Entitic styleCode="Bold Teresa volume] in Blood ">Mean Platelet Medical by Automated Volume Center count </content>9.2 FL<content styleCode="Ital ics"> (8.0-11.0 FL)</content> Platelets 130-400 <content [facility] [#/volume] in styleCode="Bold Tereas Blood by ">Platelet Medical Automated count Count Center </content>295 KCUMM<content styleCode="Ital ics"> (130-400 KCUMM)</content > Neutrophils 36-66 <content [facility] [#/volume] in styleCode="Bold Teresa Blood by ">Neutrophil Medical Automated count </content>62.3 Center %<content styleCode="Ital ics"> (36-66 %)</content> Lymphocytes 24.0-44. <content [facility] [#/volume] in 0 styleCode="Bold Teresa Blood by ">Lymphocyte Medical Automated count </content>30.9 Center %<content styleCode="Ital ics"> (24.0-44.0 %)</content> UNK 1.0-4.8 <content [facility] styleCode="Bold Teresa ">Lymphocyte Medical Count Center </content>2.92 KCUMM<content styleCode="Ital ics"> (1.0-4.8 KCUMM)</content > UNK 1.6-7.3 <content [facility] styleCode="Bold Teresa ">Neutrophil Medical Count Center </content>5.88 KCUMM<content styleCode="Ital ics"> (1.6-7.3 KCUMM)</content > Monocytes 3.0-10.0 <content [facility] [#/volume] in styleCode="Bold Teresa Blood by ">Monocyte Medical Automated count </content>5.8 Center %<content styleCode="Ital ics"> (3.0-10.0 %)</content> UNK 0.0-0.6 <content [facility] styleCode="Bold Teresa ">Eosinophil Medical Count Center </content>0.03 KCUMM<content styleCode="Ital ics"> (0.0-0.6 KCUMM)</content > Eosinophils 0-5.0 <content [facility] [#/volume] in styleCode="Bold Teresa Blood by ">Eosinophil Medical Automated count </content>0.3 Center %<content styleCode="Ital ics"> (0-5.0 %)</content> UNK 0.2-0.9 <content [facility] styleCode="Bold Teresa ">Monocyte Medical Count Center </content>0.55 KCUMM<content styleCode="Ital ics"> (0.2-0.9 KCUMM)</content > Basophils 0.0-1.0 <content [facility] [#/volume] in styleCode="Bold Teresa Blood by ">Basophil Medical Automated count </content>0.4 Center %<content styleCode="Ital ics"> (0.0-1.0 %)</content> UNK 0.0-0.3 <content [facility] styleCode="Bold Teresa ">Basophil Medical Count Center </content>0.04 KCUMM<content styleCode="Ital ics"> (0.0-0.3 KCUMM)</content > UNK 0 Above high <content [facility] normal styleCode="Bold Teresa ">Nucleated Red Medical Blood Cell Center </content>0.4 /100 H<content styleCode="Ital ics"> (0 /100)</content> UNK < 1 <content [facility] styleCode="Bold Teresa ">Immature Medical Granulocyte Center Ratio </content>0.3 %<content styleCode="Ital ics"> (< 1 %)</content> UNK 0.0 Above high <content [facility] normal styleCode="Bold Teresa ">Nucleated Red Medical Blood Cell Center Count </content>0.04 KCUMM H<content styleCode="Ital ics"> (0.0 KCUMM)</content > UNK 0-0.1 <content [facility] styleCode="Bold Teresa ">Immature Medical Granulocyte Center Count </content>0.03 KCUMM<content styleCode="Ital ics"> (0-0.1 KCUMM)</content > ID Date Data Source GFR(Creatinine).[id number] 06/14/2020 05:26:00 AM EDT [facility] 0-0400 Name Value Range Interpretation Code Description Data Nazanin rce(s) Supporting Document(s ) UNK > 60 <content [facility] Teresa styleCode="Bold"> Medical Cent er EGFR </content>144 GFR<content styleCode="Italic s"> (> 60 GFR)</content> ID Date Data Source Electrophoresis.[id number] 06/14/2020 05:26:00 AM EDT [facility] 0-0400 Name Value Range Interpretation Description Data Sup porting Code Source(s) Document(s ) UNK 6.1-8.1 Below low normal <content [facility] styleCode="Bold Teresa ">Protein,Total Medical ,Serum Center </content>5.7 g/dL L<content styleCode="Ital ics"> (6.1-8.1 g/dL)</content> UNK 3.8-4.8 Below low normal <content [facility] styleCode="Bold Teresa ">Albumin-SPE Medical </content>3.1 Center g/dL L<content styleCode="Ital ics"> (3.8-4.8 g/dL)</content> UNK 0.2-0.3 <content [facility] styleCode="Bold Teresa ">Gnjno-3-Gfyzn Medical brenda Center </content>0.3 g/dL<content styleCode="Ital ics"> (0.2-0.3 g/dL)</content> UNK 0.2-0.5 <content [facility] styleCode="Bold Teresa ">Beta 2 Medical Globulin Center </content>0.3 g/dL<content styleCode="Ital ics"> (0.2-0.5 g/dL)</content> UNK 0.5-0.9 <content [facility] styleCode="Bold Teresa ">Rlelj-6-Nmemm Medical brenda Center </content>0.7 g/dL<content styleCode="Ital ics"> (0.5-0.9 g/dL)</content> UNK 0.4-0.6 <content [facility] styleCode="Bold Teresa ">Beta Globulin Medical </content>0.6 Center g/dL<content styleCode="Ital ics"> (0.4-0.6 g/dL)</content> UNK <content [facility] styleCode="Bold Teresa ">Prot.Electrop Medical horesis,Ser Center </content>SEE NOTE (Reference Range: not available)
UNK 0.8-1.7 <content [facility] styleCode="Bold Teresa ">Gamma Medical Globulin Center </content>0.8 g/dL<content styleCode="Ital ics"> (0.8-1.7 g/dL)</content> Hematocrit 35.0-45. Below low normal <content [facility] [Volume 0 styleCode="Bold Teresa Fraction] of ">Hematocrit Medical Blood by </content>29.4 Center Automated count % L<content styleCode="Ital ics"> (35.0-45.0 %)</content> Hemoglobin 11.7-15. Below low normal <content [facility] [Mass/volume] 5 styleCode="Bold Teresa in Blood ">Hemoglobin Medical </content>8.6 Center g/dL L<content styleCode="Ital ics"> (11.7-15.5 g/dL)</content> Erythrocyte 11.0-15. Above high normal <content [facility] distribution 0 styleCode="Bold Teresa width [Ratio] ">Erythrocyte Medical by Automated Distribution Center count WII </content>22.3 % H<content styleCode="Ital ics"> (11.0-15.0 %)</content> Erythrocytes 3.80-5.1 <content [facility] [#/volume] in 0 styleCode="Bold Teresa Blood by ">Red Blood Medical Automated count Cell Count Center </content>4.02 Cecelia<content styleCode="Ital ics"> (3.80-5.10 Cecelia)</content > Erythrocyte 80.0-100 Below low normal <content [facility] mean .0 styleCode="Bold Teresa corpuscular ">Mean Medical volume [Entitic Corpuscular Center volume] by Volume Automated count </content>73.1 fL L<content styleCode="Ital ics"> (80.0-100.0 fL)</content> Erythrocyte 27.0-33. Below low normal <content [facility] mean 0 styleCode="Bold Teresa corpuscular ">Mean Medical hemoglobin Corpuscular Center [Entitic mass] Hemoglob by Automated </content>21.4 count pg L<content styleCode="Ital ics"> (27.0-33.0 pg)</content> ID Date Data Source Coagulation 06/14/2020 05:26:00 AM [facility] Rout.[id number] EDT Name Value Range Interpretation Description Data Sup porting Code Source(s) Document(s ) UNK 9.0-13.0 <content [facility] styleCode="Bold" Teresa >Protime Medical </content>10.5 Center SEC<content styleCode="Itali cs"> (9.0-13.0 SEC)</content> INR in 0.80-1.2 <content [facility] Platelet poor 0 styleCode="Bold" [facility] plasma by >INR Medical Coagulation </content>0.95 Center assay #<content styleCode="Itali cs"> (0.80-1.20 #)</content> aPTT in 25.1-36. <content [facility] Platelet poor 5 styleCode="Bold" Teresa plasma by >Partial Medical Coagulation Thromboplastin Center assay Time </content>28.2 SEC<content styleCode="Itali cs"> (25.1-36.5 SEC)</content> ID Date Data Source CHMROUTINECCDA.[id number] 06/14/2020 05:26:00 AM EDT [facility] -[facility] Name Value Range Interpretation Description Data Sup porting Code Source(s) Document(s ) UNK >= 1.0 <content [facility] styleCode="Lisa Youngs d">AG Ratio Medical </content>1.4 Center <content styleCode="Jeanie lics"> (>= 1.0 )</content> UNK 2.3-3.5 <content [facility] styleCode="Lisa Youngs d">Globulin Medical </content>2.5 Center G/DL<content styleCode="Jeanie lics"> (2.3-3.5 G/DL)</content > Protein 6.3-8.2 Below low normal <content [facility] [Mass/volume] styleCode="Lisa Youngs in Serum or d">Total Medical Plasma Protein Center </content>5.9 G/DL L<content styleCode="Jeanie lics"> (6.3-8.2 G/DL)</content > Magnesium 1.6-2.3 <content [facility] [Mass/volume] styleCode="Lisa Teresa in Serum or d">Magnesium Medical Plasma </content>2.2 Center MG/DL<content styleCode="Jeanie lics"> (1.6-2.3 MG/DL)</conten t> Phosphate 2.5-4.5 <content [facility] [Mass/volume] styleCode="Lisa Teresa in Serum or d">Phosphorus Medical Plasma </content>4.5 Center MG/DL<content styleCode="Jeanie lics"> (2.5-4.5 MG/DL)</conten t> ID Date Data Source [facility].[id number] 06/14/2020 05:26:00 AM EDT [facility] Name Value Range Interpretation Description Data Sup porting Code Source(s) Document(s ) Sodium 137-145 Below low <content Saint [Moles/volume] in normal styleCode="Bold"> Braulio phs Serum or Plasma Sodium Medical </content>135 Center MEQ/L L<content styleCode="Italic s"> (137-145 MEQ/L)</content> Chloride 98-107 <content [facility] [Moles/volume] in styleCode="Bold"> Braulio phs Serum or Plasma Chloride Medical </content>106 Center MEQ/L<content styleCode="Italic s"> (98-107 MEQ/L)</content> Potassium 3.5-5.3 <content [facility] [Moles/volume] in styleCode="Bold"> Braulio phs Serum or Plasma Potassium Medical </content>3.9 Center MEQ/L<content styleCode="Italic s"> (3.5-5.3 MEQ/L)</content> Carbon dioxide, 22-30 <content [facility] total styleCode="Bold"> Teresa [Moles/volume] in Carbon Dioxide Medical Serum or Plasma </content>24 Center MEQ/L<content styleCode="Italic s"> (22-30 MEQ/L)</content> UNK 7-17 <content [facility] styleCode="Bold"> Teresa BUN </content>16 Medical MG/DL<content Center styleCode="Italic s"> (7-17 MG/DL)</content> Calcium 8.4-10. Below low <content [facility] [Mass/volume] in 2 normal styleCode="Bold"> Alfa hs Serum or Plasma Calcium Medical </content>8.3 Center MG/DL L<content styleCode="Italic s"> (8.4-10.2 MG/DL)</content> Glucose 74-106 <content [facility] [Mass/volume] in styleCode="Bold"> Alfa hs Serum or Plasma Glucose Medical </content>96 Center MG/DL<content styleCode="Italic s"> (74-106 MG/DL)</content> Creatinine 0.5-1.3 <content [facility] [Mass/volume] in styleCode="Bold"> Alfa hs Serum or Plasma Creatinine Medical </content>0.5 Center MG/DL<content styleCode="Italic s"> (0.5-1.3 MG/DL)</content> Alanine 7-30 <content [facility] aminotransferase styleCode="Bold"> Alfa hs [Enzymatic Alanine Medical activity/volume] Aminotransferase Center in Serum or Plasma (ALT) </content>15 IU/L<content styleCode="Italic s"> (7-30 IU/L)</content> Alkaline 38-126 <content [facility] phosphatase styleCode="Bold"> Teresa [Enzymatic Alkaline Medical activity/volume] Phosphatase (ALP) Cente r in Serum or Plasma </content>62 IU/L<content styleCode="Italic s"> (38-126 IU/L)</content> UNK > 60 <content [facility] styleCode="Bold"> Teresa EGFR Medical </content>144 Center GFR<content styleCode="Italic s"> (> 60 GFR)</content> Aspartate 14-36 <content [facility] aminotransferase styleCode="Bold"> Alfa hs [Enzymatic Aspartate Medical activity/volume] Aminotransferase Center in Serum or Plasma (AST) </content>20 IU/L<content styleCode="Italic s"> (14-36 IU/L)</content> Albumin 3.5-5.0 Below low <content [facility] [Mass/volume] in normal styleCode="Bold"> Alfa hs Serum or Plasma Albumin Medical </content>3.4 Center G/DL L<content styleCode="Italic s"> (3.5-5.0 G/DL)</content> Bilirubin.total 0.2-1.3 <content [facility] [Mass/volume] in styleCode="Bold"> Alfa hs Serum or Plasma Bilirubin Total Medical </content>0.2 Center MG/DL<content styleCode="Italic s"> (0.2-1.3 MG/DL)</content> ID Date Data Source Liver 06/13/2020 06:00:00 AM EDT [facility] Profile.[id number] Name Value Range Interpretation Description Data Sup porting Code Source(s) Document(s ) Alanine 7-30 <content [facility] aminotransferase styleCode="Bold"> Alfa hs [Enzymatic Alanine Medical activity/volume] Aminotransferase Center in Serum or Plasma (ALT) </content>16 IU/L<content styleCode="Italic s"> (7-30 IU/L)</content> Aspartate 14-36 <content [facility] aminotransferase styleCode="Bold"> Alfa hs [Enzymatic Aspartate Medical activity/volume] Aminotransferase Center in Serum or Plasma (AST) </content>24 IU/L<content styleCode="Italic s"> (14-36 IU/L)</content> Bilirubin.total 0.2-1.3 Below low <content [facility] [Mass/volume] in normal styleCode="Bold"> Alfa hs Serum or Plasma Bilirubin Total Medical </content>< 0.2 Center MG/DL L<content styleCode="Italic s"> (0.2-1.3 MG/DL)</content> Albumin 3.5-5.0 <content [facility] [Mass/volume] in styleCode="Bold"> Alfa hs Serum or Plasma Albumin Medical </content>3.6 Center G/DL<content styleCode="Italic s"> (3.5-5.0 G/DL)</content> Alkaline 38-126 <content [facility] phosphatase styleCode="Bold"> Teresa [Enzymatic Alkaline Medical activity/volume] Phosphatase (ALP) Cente r in Serum or Plasma </content>66 IU/L<content styleCode="Italic s"> (38-126 IU/L)</content> ID Date Data Source HematologyRou.[id number] 06/13/2020 06:00:00 AM EDT [facility] 0400 Name Value Range Interpretation Description Data Sup porting Code Source(s) Document(s ) Erythrocytes 4.0-5.1 <content [facility] [#/volume] in styleCode="Bold Teresa Blood by ">Red Blood Medical Automated count Cell Count Center </content>4.09 MCUMM<content styleCode="Ital ics"> (4.0-5.1 MCUMM)</content > Leukocytes 4.4-11.0 Below low normal <content [facility] [#/volume] in styleCode="Bold Teresa Blood by ">White Blood Medical Automated count Cell Count Center </content>3.57 KCUMM L<content styleCode="Ital ics"> (4.4-11.0 KCUMM)</content > Erythrocyte mean 80.0-100 <content [facility] corpuscular .0 styleCode="Bold Teresa volume [Entitic ">Mean Medical volume] by Corpuscular Center Automated count Volume </content>73.1 FL<content styleCode="Ital ics"> (80.0-100.0 FL)</content> Hemoglobin 12.3-16. Below low normal <content [facility] [Mass/volume] in 0 styleCode="Bold Teresa Blood ">Hemoglobin Medical </content>8.7 Center G/DL L<content styleCode="Ital ics"> (12.3-16.0 G/DL)</content> Hematocrit 36.0-46. Below low normal <content [facility] [Volume 0 styleCode="Bold Teresa Fraction] of ">Hematocrit Medical Blood by </content>29.9 Center Automated count % L<content styleCode="Ital ics"> (36.0-46.0 %)</content> Platelets 130-400 <content [facility] [#/volume] in styleCode="Bold Teresa Blood by ">Platelet Medical Automated count Count Center </content>289 KCUMM<content styleCode="Ital ics"> (130-400 KCUMM)</content > Erythrocyte mean 32.0-37. Below low normal <content [facility] corpuscular 0 styleCode="Bold Teresa hemoglobin ">Mean Corpus. Medical concentration Hgb Center [Mass/volume] by Concentration Automated count (MCHC) </content>29.1 G/DL L<content styleCode="Ital ics"> (32.0-37.0 G/DL)</content> Erythrocyte 11.5-14. Above high <content [facility] distribution 5 normal styleCode="Bold Teresa width [Ratio] by ">Red Cell Medical Automated count Distribution Center Width </content>22.5 % H<content styleCode="Ital ics"> (11.5-14.5 %)</content> Erythrocyte mean 26.0-34. Below low normal <content [facility] corpuscular 0 styleCode="Bold Teresa hemoglobin ">Mean Medical [Entitic mass] Corposcular Center by Automated Hemoglobin count </content>21.3 PG L<content styleCode="Ital ics"> (26.0-34.0 PG)</content> Neutrophils 36-66 Above high <content [facility] [#/volume] in normal styleCode="Bold Teresa Blood by ">Neutrophil Medical Automated count </content>83.2 Center % H<content styleCode="Ital ics"> (36-66 %)</content> UNK 1.6-7.3 <content [facility] styleCode="Bold Teresa ">Neutrophil Medical Count Center </content>2.97 KCUMM<content styleCode="Ital ics"> (1.6-7.3 KCUMM)</content > Platelet mean 8.0-11.0 <content [facility] volume [Entitic styleCode="Bold Teresa volume] in Blood ">Mean Platelet Medical by Automated Volume Center count </content>8.9 FL<content styleCode="Ital ics"> (8.0-11.0 FL)</content> Monocytes 3.0-10.0 Below low normal <content [facility] [#/volume] in styleCode="Bold Teresa Blood by ">Monocyte Medical Automated count </content>0.3 % Center L<content styleCode="Ital ics"> (3.0-10.0 %)</content> Lymphocytes 24.0-44. Below low normal <content [facility] [#/volume] in 0 styleCode="Bold Teresa Blood by ">Lymphocyte Medical Automated count </content>16.2 Center % L<content styleCode="Ital ics"> (24.0-44.0 %)</content> UNK 1.0-4.8 Below low normal <content Saint styleCode="Bold Teresa ">Lymphocyte Medical Count Center </content>0.58 KCUMM L<content styleCode="Ital ics"> (1.0-4.8 KCUMM)</content > UNK 0.0-0.6 <content [facility] styleCode="Bold Teresa ">Eosinophil Medical Count Center </content>0.00 KCUMM<content styleCode="Ital ics"> (0.0-0.6 KCUMM)</content > UNK 0.2-0.9 Below low normal <content Saint styleCode="Bold Teresa ">Monocyte Medical Count Center </content>0.01 KCUMM L<content styleCode="Ital ics"> (0.2-0.9 KCUMM)</content > Eosinophils 0-5.0 <content Saint [#/volume] in styleCode="Bold Teresa Blood by ">Eosinophil Medical Automated count </content>0.0 Center %<content styleCode="Ital ics"> (0-5.0 %)</content> Basophils 0.0-1.0 <content Saint [#/volume] in styleCode="Bold Teresa Blood by ">Basophil Medical Automated count </content>0.0 Center %<content styleCode="Ital ics"> (0.0-1.0 %)</content> UNK 0 Above high <content [facility] normal styleCode="Bold Teresa ">Nucleated Red Medical Blood Cell Center </content>0.6 /100 H<content styleCode="Ital ics"> (0 /100)</content> UNK 0.0-0.3 <content Saint styleCode="Bold Teresa ">Basophil Medical Count Center </content>0.00 KCUMM<content styleCode="Ital ics"> (0.0-0.3 KCUMM)</content > UNK 0-0.1 <content Saint styleCode="Bold Teresa ">Immature Medical Granulocyte Center Count </content>0.01 KCUMM<content styleCode="Ital ics"> (0-0.1 KCUMM)</content > UNK < 1 <content [facility] styleCode="Bold Teresa ">Immature Medical Granulocyte Center Ratio </content>0.3 %<content styleCode="Ital ics"> (< 1 %)</content> UNK 0.0 Above high <content [facility] normal styleCode="Bold Teresa ">Nucleated Red Medical Blood Cell Center Count </content>0.02 KCUMM H<content styleCode="Ital ics"> (0.0 KCUMM)</content > ID Date Data Source GFR(Creatinine).[id number] 06/13/2020 06:00:00 AM EDT [facility] 0-0400 Name Value Range Interpretation Code Description Data Nazanin rce(s) Supporting Document(s ) UNK > 60 <content [facility] styleCode="Bold"> Medical Cent er EGFR </content>186 GFR<content styleCode="Italic s"> (> 60 GFR)</content> ID Date Data Source Coagulation 06/13/2020 06:00:00 AM [facility] ical Center Rout.[id number] EDT Name Value Range Interpretation Description Data Sup porting Code Source(s) Document(s ) UNK 9.0-13.0 <content Saint styleCode="Bold" Teresa >Protime Medical </content>10.2 Center SEC<content styleCode="Itali cs"> (9.0-13.0 SEC)</content> INR in 0.80-1.2 <content [facility] Platelet poor 0 styleCode="Bold" Teresa plasma by >INR Medical Coagulation </content>0.92 Center assay #<content styleCode="Itali cs"> (0.80-1.20 #)</content> aPTT in 25.1-36. <content [facility] Platelet poor 5 styleCode="Bold" Teresa plasma by >Partial Medical Coagulation Thromboplastin Center assay Time </content>26.6 SEC<content styleCode="Itali cs"> (25.1-36.5 SEC)</content> ID Date Data Source MROUTJEANINECCDA.[id number] 06/13/2020 06:00:00 AM EDT [facility] -0400 Name Value Range Interpretation Description Data Sup porting Code Source(s) Document(s ) Magnesium 1.6-2.3 <content Saint [Mass/volume] styleCode="Lisa Teresa in Serum or d">Magnesium Medical Plasma </content>2.1 Center MG/DL<content styleCode="Jeanie lics"> (1.6-2.3 MG/DL)</conten t> UNK >= 1.0 <content [facility] styleCode="Lisa Teresa d">AG Ratio Medical </content>1.3 Center <content styleCode="Jeanie lics"> (>= 1.0 )</content> UNK 2.3-3.5 <content [facility] styleCode="Lisa Teresa d">Globulin Medical </content>2.8 Center G/DL<content styleCode="Jeanie lics"> (2.3-3.5 G/DL)</content > Phosphate 2.5-4.5 <content Saint [Mass/volume] styleCode="Lisa Teresa in Serum or d">Phosphorus Medical Plasma </content>3.8 Center MG/DL<content styleCode="Jeanie lics"> (2.5-4.5 MG/DL)</conten t> Protein 6.3-8.2 <content [facility] [Mass/volume] styleCode="Lisa Teresa in Serum or d">Total Medical Plasma Protein Center </content>6.4 G/DL<content styleCode="Jeanie lics"> (6.3-8.2 G/DL)</content > ID Date Data Source CardiacMarkers.[id number] 06/13/2020 06:00:00 AM EDT [facility] -0400 Name Value Range Interpretation Description Data Sup porting Code Source(s) Document(s ) Troponin < 0.034 <content Saint I.cardiac styleCode="Bold Teresa [Mass/volume ">Troponin I Medical ] in Serum </content>< Center or Plasma 0.012 NG/ML<content styleCode="Ital ics"> (< 0.034 NG/ML)</content > ID Date Data Source [facility].[id number] 06/13/2020 06:00:00 AM EDT [facility] Name Value Range Interpretation Description Data Sup porting Code Source(s) Document(s ) Sodium 137-145 Below low <content Saint [Moles/volume] in normal styleCode="Bold"> Braulio phs Serum or Plasma Sodium Medical </content>135 Center MEQ/L L<content styleCode="Italic s"> (137-145 MEQ/L)</content> Potassium 3.5-5.3 <content [facility] [Moles/volume] in styleCode="Bold"> Braulio phs Serum or Plasma Potassium Medical </content>4.2 Center MEQ/L<content styleCode="Italic s"> (3.5-5.3 MEQ/L)</content> Chloride 98-107 <content [facility] [Moles/volume] in styleCode="Bold"> Braulio phs Serum or Plasma Chloride Medical </content>106 Center MEQ/L<content styleCode="Italic s"> (98-107 MEQ/L)</content> Carbon dioxide, 22-30 <content Saint total styleCode="Bold"> Teresa [Moles/volume] in Carbon Dioxide Medical Serum or Plasma </content>24 Center MEQ/L<content styleCode="Italic s"> (22-30 MEQ/L)</content> UNK 7-17 <content Saint styleCode="Bold"> Teresa BUN </content>13 Medical MG/DL<content Center styleCode="Italic s"> (7-17 MG/DL)</content> Glucose 74-106 Above high <content Saint [Mass/volume] in normal styleCode="Bold"> Alfa hs Serum or Plasma Glucose Medical </content>153 Center MG/DL H<content styleCode="Italic s"> (74-106 MG/DL)</content> Creatinine 0.5-1.3 Below low <content [facility] [Mass/volume] in normal styleCode="Bold"> Alfa hs Serum or Plasma Creatinine Medical </content>0.4 Center MG/DL L<content styleCode="Italic s"> (0.5-1.3 MG/DL)</content> Calcium 8.4-10. <content [facility] [Mass/volume] in 2 styleCode="Bold"> Alfa hs Serum or Plasma Calcium Medical </content>8.9 Center MG/DL<content styleCode="Italic s"> (8.4-10.2 MG/DL)</content> UNK > 60 <content [facility] styleCode="Bold"> Teresa EGFR Medical </content>186 Center GFR<content styleCode="Italic s"> (> 60 GFR)</content> Alanine 7-30 <content [facility] aminotransferase styleCode="Bold"> Alfa hs [Enzymatic Alanine Medical activity/volume] Aminotransferase Center in Serum or Plasma (ALT) </content>16 IU/L<content styleCode="Italic s"> (7-30 IU/L)</content> Bilirubin.total 0.2-1.3 Below low <content [facility] [Mass/volume] in normal styleCode="Bold"> Alfa hs Serum or Plasma Bilirubin Total Medical </content>< 0.2 Center MG/DL L<content styleCode="Italic s"> (0.2-1.3 MG/DL)</content> Alkaline 38-126 <content [facility] phosphatase styleCode="Bold"> Teresa [Enzymatic Alkaline Medical activity/volume] Phosphatase (ALP) Cente r in Serum or Plasma </content>66 IU/L<content styleCode="Italic s"> (38-126 IU/L)</content> Aspartate 14-36 <content [facility] aminotransferase styleCode="Bold"> Alfa hs [Enzymatic Aspartate Medical activity/volume] Aminotransferase Center in Serum or Plasma (AST) </content>24 IU/L<content styleCode="Italic s"> (14-36 IU/L)</content> Albumin 3.5-5.0 <content [facility] [Mass/volume] in styleCode="Bold"> Alfa hs Serum or Plasma Albumin Medical </content>3.6 Center G/DL<content styleCode="Italic s"> (3.5-5.0 G/DL)</content> ID Date Data Source BloodHubHub.[id number] 06/12/2020 08:44:00 PM EDT [facility] Name Value Range Interpretation Code Description Data Nazanin rce(s) Supporting Document(s ) UNK <content [facility] Teresa styleCode="Bold"> Medical Cent er Packed Red Blood Cells </content>Transfu sed 1 unit. (Reference Range: not available)
ID Date Data Source HematologyRou.[id number] 06/12/2020 06:40:00 PM EDT [facility] 0400 Name Value Range Interpretation Description Data Sup porting Code Source(s) Document(s ) Leukocytes 4.4-11.0 <content [facility] [#/volume] in styleCode="Bold Teresa Blood by ">White Blood Medical Automated count Cell Count Center </content>8.55 KCUMM<content styleCode="Ital ics"> (4.4-11.0 KCUMM)</content > Erythrocytes 4.0-5.1 Below low normal <content [facility] [#/volume] in styleCode="Bold Teresa Blood by ">Red Blood Medical Automated count Cell Count Center </content>3.72 MCUMM L<content styleCode="Ital ics"> (4.0-5.1 MCUMM)</content > Hematocrit 36.0-46. Below low normal <content Saint [Volume 0 styleCode="Bold Teresa Fraction] of ">Hematocrit Medical Blood by </content>26.2 Center Automated count % L<content styleCode="Ital ics"> (36.0-46.0 %)</content> Hemoglobin 12.3-16. Below low normal <content [facility] [Mass/volume] in 0 styleCode="Bold Teresa Blood ">Hemoglobin Medical </content>7.4 Center G/DL L<content styleCode="Ital ics"> (12.3-16.0 G/DL)</content> Erythrocyte mean 80.0-100 <content [facility] corpuscular .0 styleCode="Bold Teresa volume [Entitic ">Mean Medical volume] by Corpuscular Center Automated count Volume </content>70.4 FL<content styleCode="Ital ics"> (80.0-100.0 FL)</content> Erythrocyte mean 26.0-34. Below low normal <content [facility] corpuscular 0 styleCode="Bold Teresa hemoglobin ">Mean Medical [Entitic mass] Corposcular Center by Automated Hemoglobin count </content>19.9 PG L<content styleCode="Ital ics"> (26.0-34.0 PG)</content> Erythrocyte 11.5-14. Above high <content [facility] distribution 5 normal styleCode="Bold Teresa width [Ratio] by ">Red Cell Medical Automated count Distribution Center Width </content>21.5 % H<content styleCode="Ital ics"> (11.5-14.5 %)</content> Erythrocyte mean 32.0-37. Below low normal <content [facility] corpuscular 0 styleCode="Bold Teresa hemoglobin ">Mean Corpus. Medical concentration Hgb Center [Mass/volume] by Concentration Automated count (MCHC) </content>28.2 G/DL L<content styleCode="Ital ics"> (32.0-37.0 G/DL)</content> Neutrophils 36-66 <content Saint [#/volume] in styleCode="Bold Teresa Blood by ">Neutrophil Medical Automated count </content>61.7 Center %<content styleCode="Ital ics"> (36-66 %)</content> Platelets 130-400 <content Saint [#/volume] in styleCode="Bold Teresa Blood by ">Platelet Medical Automated count Count Center </content>308 KCUMM<content styleCode="Ital ics"> (130-400 KCUMM)</content > Platelet mean 8.0-11.0 <content [facility] volume [Entitic styleCode="Bold Teresa volume] in Blood ">Mean Platelet Medical by Automated Volume Center count </content>8.9 FL<content styleCode="Ital ics"> (8.0-11.0 FL)</content> UNK 1.6-7.3 <content Saint styleCode="Bold Teresa ">Neutrophil Medical Count Center </content>5.27 KCUMM<content styleCode="Ital ics"> (1.6-7.3 KCUMM)</content > Lymphocytes 24.0-44. <content Saint [#/volume] in 0 styleCode="Bold Teresa Blood by ">Lymphocyte Medical Automated count </content>30.5 Center %<content styleCode="Ital ics"> (24.0-44.0 %)</content> UNK 1.0-4.8 <content Saint styleCode="Bold Teresa ">Lymphocyte Medical Count Center </content>2.61 KCUMM<content styleCode="Ital ics"> (1.0-4.8 KCUMM)</content > Eosinophils 0-5.0 <content Saint [#/volume] in styleCode="Bold Teresa Blood by ">Eosinophil Medical Automated count </content>0.1 Center %<content styleCode="Ital ics"> (0-5.0 %)</content> Monocytes 3.0-10.0 <content Saint [#/volume] in styleCode="Bold Teresa Blood by ">Monocyte Medical Automated count </content>7.0 Center %<content styleCode="Ital ics"> (3.0-10.0 %)</content> UNK 0.2-0.9 <content Saint styleCode="Bold Teresa ">Monocyte Medical Count Center </content>0.60 KCUMM<content styleCode="Ital ics"> (0.2-0.9 KCUMM)</content > UNK 0.0-0.6 <content Saint styleCode="Bold Teresa ">Eosinophil Medical Count Center </content>0.01 KCUMM<content styleCode="Ital ics"> (0.0-0.6 KCUMM)</content > UNK 0 Above high <content Saint normal styleCode="Bold Teresa ">Nucleated Red Medical Blood Cell Center </content>1.2 /100 H<content styleCode="Ital ics"> (0 /100)</content> UNK 0.0-0.3 <content Saint styleCode="Bold Teresa ">Basophil Medical Count Center </content>0.04 KCUMM<content styleCode="Ital ics"> (0.0-0.3 KCUMM)</content > Basophils 0.0-1.0 <content Saint [#/volume] in styleCode="Bold [facility] Blood by ">Basophil Medical Automated count </content>0.5 Center %<content styleCode="Ital ics"> (0.0-1.0 %)</content> UNK < 1 <content Saint styleCode="Bold Teresa ">Immature Medical Granulocyte Center Ratio </content>0.2 %<content styleCode="Ital ics"> (< 1 %)</content> UNK 0-0.1 <content Saint styleCode="Bold Teresa ">Immature Medical Granulocyte Center Count </content>0.02 KCUMM<content styleCode="Ital ics"> (0-0.1 KCUMM)</content > UNK 0.0 Above high <content [facility] normal styleCode="Bold Teresa ">Nucleated Red Medical Blood Cell Center Count </content>0.10 KCUMM H<content styleCode="Ital ics"> (0.0 KCUMM)</content > ID Date Data Source BloodBank.[id number] 06/12/2020 05:16:00 PM EDT [facility] Name Value Range Interpretation Code Description Data Nazanin rce(s) Supporting Document(s ) UNK <content [facility] styleCode="Bold"> Medical Cent er Cross-Match for Packed Cells </content>[id number] COMP A POS (Reference Range: not available)
ID Date Data Source Stools.[id number] 06/12/2020 04:00:00 PM EDT [facility] Name Value Range Interpretation Code Description Data Nazanin rce(s) Supporting Document(s ) UNK NEGATIVE <content [facility] styleCode="Bold" Medical Cente r >Guaiac, Occult Blood </content>NEGATI VE <content styleCode="Itali cs"> (NEGATIVE )</content> ID Date Data Source Liver 06/12/2020 06:15:00 AM EDT [facility] Profile.[id number] Name Value Range Interpretation Description Data Sup porting Code Source(s) Document(s ) Alanine 7-30 <content [facility] aminotransferase styleCode="Bold"> Alfa hs [Enzymatic Alanine Medical activity/volume] Aminotransferase Center in Serum or Plasma (ALT) </content>13 IU/L<content styleCode="Italic s"> (7-30 IU/L)</content> Aspartate 14-36 <content [facility] aminotransferase styleCode="Bold"> Alfa hs [Enzymatic Aspartate Medical activity/volume] Aminotransferase Center in Serum or Plasma (AST) </content>24 IU/L<content styleCode="Italic s"> (14-36 IU/L)</content> Bilirubin.total 0.2-1.3 <content [facility] [Mass/volume] in styleCode="Bold"> Alfa hs Serum or Plasma Bilirubin Total Medical </content>0.3 Center MG/DL<content styleCode="Italic s"> (0.2-1.3 MG/DL)</content> Alkaline 38-126 <content [facility] phosphatase styleCode="Bold"> Teresa [Enzymatic Alkaline Medical activity/volume] Phosphatase (ALP) Cente r in Serum or Plasma </content>73 IU/L<content styleCode="Italic s"> (38-126 IU/L)</content> Albumin 3.5-5.0 <content Saint [Mass/volume] in styleCode="Bold"> Alfa hs Serum or Plasma Albumin Medical </content>3.6 Center G/DL<content styleCode="Italic s"> (3.5-5.0 G/DL)</content> ID Date Data Source Hormones.[id number] 06/12/2020 06:15:00 AM EDT [facility] Name Value Range Interpretation Description Data Sup porting Code Source(s) Document(s ) Thyrotropin 0.465-4. <content Saint [Units/volume] 68 styleCode="Lisa Teresa in Serum or d">Thyroid Medical Plasma by Stimulating Center Detection Hormone limit <= 0.05 </content>0.63 mIU/L 2 MIU/L<content styleCode="Jeanie lics"> (0.465-4.68 MIU/L)</conten t> ID Date Data Source GFR(Creatinine).[id number] 06/12/2020 06:15:00 AM EDT [facility] 0-0400 Name Value Range Interpretation Code Description Data Nazanin rce(s) Supporting Document(s ) UNK > 60 <content [facility] styleCode="Bold"> Medical Cent er EGFR </content>186 GFR<content styleCode="Italic s"> (> 60 GFR)</content> ID Date Data Source Coagulation 06/12/2020 06:15:[facility] Rout.[id number] EDT Name Value Range Interpretation Description Data Sup porting Code Source(s) Document(s ) UNK 9.0-13.0 <content Saint styleCode="Bold" Teresa >Protime Medical </content>11.0 Center SEC<content styleCode="Itali cs"> (9.0-13.0 SEC)</content> aPTT in 25.1-36. <content Saint Platelet poor 5 styleCode="Bold" Teresa plasma by >Partial Medical Coagulation Thromboplastin Center assay Time </content>27.3 SEC<content styleCode="Itali cs"> (25.1-36.5 SEC)</content> INR in 0.80-1.2 <content [facility] Platelet poor 0 styleCode="Bold" Teresa plasma by >INR Medical Coagulation </content>0.99 Center assay #<content styleCode="Itali cs"> (0.80-1.20 #)</content> ID Date Data Source ChemistrySpecia.[id number] 06/12/2020 06:15:00 AM EDT [facility] 0-0400 Name Value Range Interpretation Description Data Sup porting Code Source(s) Document(s ) Folate > 3.0 <content Saint [Mass/volume] styleCode="Lisa Teresa in Serum or d">Folic Acid Medical Plasma </content>9.75 Center NG/ML<content styleCode="Jeanie lics"> (> 3.0 NG/ML)</conten t> Cobalamin 239931 <content Saint (Vitamin B12) styleCode="Lisa Teresa [Mass/volume] d">Vitamin B12 Medical in Serum or </content>284 Center Plasma PG/ML<content styleCode="Jeanie lics"> (239-931 PG/ML)</conten t> ID Date Data Source SAIMA.[id number] 06/12/2020 06:15:00 AM EDT [facility] -0400 Name Value Range Interpretation Description Data Sup porting Code Source(s) Document(s ) Ferritin 7-264 Below low normal <content Saint [Mass/volume] in styleCode="Bold Teresa Serum or Plasma ">Ferritin Medical </content>4.33 Center NG/ML L<content styleCode="Ital ics"> (7-264 NG/ML)</content > Folate > 3.0 <content Saint [Mass/volume] in styleCode="Bold Teresa Serum or Plasma ">Folic Acid Medical </content>9.75 Center NG/ML<content styleCode="Ital ics"> (> 3.0 NG/ML)</content > UNK >= 1.0 <content Saint styleCode="Bold Teresa ">AG Ratio Medical </content>1.3 Center <content styleCode="Ital ics"> (>= 1.0 )</content> UNK 4.2-5.8 <content Saint styleCode="Bold Teresa ">Hemoglobin Medical A1C Center </content>5.6 %<content styleCode="Ital ics"> (4.2-5.8 %)</content> UNK 2.3-3.5 <content Saint styleCode="Bold Teresa ">Globulin Medical </content>2.8 Center G/DL<content styleCode="Ital ics"> (2.3-3.5 G/DL)</content> Iron 37-170 Below low normal <content Saint [Mass/volume] in styleCode="Bold Teresa Serum or Plasma ">Iron Medical </content>23 Center UG/DL L<content styleCode="Ital ics"> (37-170 UG/DL)</content > Lactate 316-618 <content Saint dehydrogenase styleCode="Bold Teresa [Enzymatic ">Lactate Medical activity/volume] Dehydrogenase Center in Serum or (LDH) Plasma by </content>437 Pyruvate to IU/L<content lactate reaction styleCode="Ital ics"> (316-618 IU/L)</content> Phosphate 2.5-4.5 <content Saint [Mass/volume] in styleCode="Bold Teresa Serum or Plasma ">Phosphorus Medical </content>3.1 Center MG/DL<content styleCode="Ital ics"> (2.5-4.5 MG/DL)</content > Magnesium 1.6-2.3 <content Saint [Mass/volume] in styleCode="Bold Teresa Serum or Plasma ">Magnesium Medical </content>2.1 Center MG/DL<content styleCode="Ital ics"> (1.6-2.3 MG/DL)</content > UNK 265-497 Above high <content Saint normal styleCode="Bold Teresa ">TIBC Medical </content>568 Center UG/DL H<content styleCode="Ital ics"> (265-497 UG/DL)</content > Protein 6.3-8.2 <content Saint [Mass/volume] in styleCode="Bold Teresa Serum or Plasma ">Total Protein Medical </content>6.4 Center G/DL<content styleCode="Ital ics"> (6.3-8.2 G/DL)</content> ID Date Data Source [facility].[id number] 06/12/2020 06:15:00 AM EDT [facility] Name Value Range Interpretation Description Data Sup porting Code Source(s) Document(s ) Potassium 3.5-5.3 <content Saint [Moles/volume] in styleCode="Bold"> Braulio phs Serum or Plasma Potassium Medical </content>3.8 Center MEQ/L<content styleCode="Italic s"> (3.5-5.3 MEQ/L)</content> Chloride 98-107 <content Saint [Moles/volume] in styleCode="Bold"> Braulio phs Serum or Plasma Chloride Medical </content>105 Center MEQ/L<content styleCode="Italic s"> (98-107 MEQ/L)</content> Sodium 137-145 Below low <content Saint [Moles/volume] in normal styleCode="Bold"> Braulio phs Serum or Plasma Sodium Medical </content>134 Center MEQ/L L<content styleCode="Italic s"> (137-145 MEQ/L)</content> Creatinine 0.5-1.3 Below low <content Saint [Mass/volume] in normal styleCode="Bold"> Alfa hs Serum or Plasma Creatinine Medical </content>0.4 Center MG/DL L<content styleCode="Italic s"> (0.5-1.3 MG/DL)</content> UNK 7-17 <content Saint styleCode="Bold"> Teresa BUN </content>12 Medical MG/DL<content Center styleCode="Italic s"> (7-17 MG/DL)</content> Glucose 74-106 Above high <content Saint [Mass/volume] in normal styleCode="Bold"> Alfa hs Serum or Plasma Glucose Medical </content>138 Center MG/DL H<content styleCode="Italic s"> (74-106 MG/DL)</content> Carbon dioxide, 22-30 <content Saint total styleCode="Bold"> Teresa [Moles/volume] in Carbon Dioxide Medical Serum or Plasma </content>23 Center MEQ/L<content styleCode="Italic s"> (22-30 MEQ/L)</content> UNK > 60 <content Saint styleCode="Bold"> Teresa EGFR Medical </content>186 Center GFR<content styleCode="Italic s"> (> 60 GFR)</content> Alanine 7-30 <content Saint aminotransferase styleCode="Bold"> Alfa hs [Enzymatic Alanine Medical activity/volume] Aminotransferase Center in Serum or Plasma (ALT) </content>13 IU/L<content styleCode="Italic s"> (7-30 IU/L)</content> Calcium 8.4-10. <content Saint [Mass/volume] in 2 styleCode="Bold"> Alfa hs Serum or Plasma Calcium Medical </content>9.0 Center MG/DL<content styleCode="Italic s"> (8.4-10.2 MG/DL)</content> Aspartate 14-36 <content Saint aminotransferase styleCode="Bold"> Alfa hs [Enzymatic Aspartate Medical activity/volume] Aminotransferase Center in Serum or Plasma (AST) </content>24 IU/L<content styleCode="Italic s"> (14-36 IU/L)</content> Alkaline 38-126 <content [facility] phosphatase styleCode="Bold"> Teresa [Enzymatic Alkaline Medical activity/volume] Phosphatase (ALP) Cente r in Serum or Plasma </content>73 IU/L<content styleCode="Italic s"> (38-126 IU/L)</content> Albumin 3.5-5.0 <content Saint [Mass/volume] in styleCode="Bold"> Alfa hs Serum or Plasma Albumin Medical </content>3.6 Center G/DL<content styleCode="Italic s"> (3.5-5.0 G/DL)</content> Bilirubin.total 0.2-1.3 <content Saint [Mass/volume] in styleCode="Bold"> Alfa hs Serum or Plasma Bilirubin Total Medical </content>0.3 Center MG/DL<content styleCode="Italic s"> (0.2-1.3 MG/DL)</content> ID Date Data Source HematologyRou.[id number] 06/12/2020 06:15:00 AM EDT [facility] 0400 Name Value Range Interpretation Description Data Sup porting Code Source(s) Document(s ) Hemoglobin 12.3-16. Below low normal <content [facility] [Mass/volume] in 0 styleCode="Bold Teresa Blood ">Hemoglobin Medical </content>7.0 Center G/DL L<content styleCode="Ital ics"> (12.3-16.0 G/DL)</content> Hematocrit 36.0-46. Below low normal <content [facility] [Volume 0 styleCode="Bold Teresa Fraction] of ">Hematocrit Medical Blood by </content>24.6 Center Automated count % L<content styleCode="Ital ics"> (36.0-46.0 %)</content> Leukocytes 4.4-11.0 Below low normal <content [facility] [#/volume] in styleCode="Bold Teresa Blood by ">White Blood Medical Automated count Cell Count Center </content>3.28 KCUMM L<content styleCode="Ital ics"> (4.4-11.0 KCUMM)</content > Erythrocytes 4.0-5.1 Below low normal <content [facility] [#/volume] in styleCode="Bold Teresa Blood by ">Red Blood Medical Automated count Cell Count Center </content>3.51 MCUMM L<content styleCode="Ital ics"> (4.0-5.1 MCUMM)</content > Erythrocyte mean 80.0-100 <content [facility] corpuscular .0 styleCode="Bold Teresa volume [Entitic ">Mean Medical volume] by Corpuscular Center Automated count Volume </content>70.1 FL<content styleCode="Ital ics"> (80.0-100.0 FL)</content> Erythrocyte mean 32.0-37. Below low normal <content [facility] corpuscular 0 styleCode="Bold Teresa hemoglobin ">Mean Corpus. Medical concentration Hgb Center [Mass/volume] by Concentration Automated count (MCHC) </content>28.5 G/DL L<content styleCode="Ital ics"> (32.0-37.0 G/DL)</content> Erythrocyte 11.5-14. Above high <content [facility] distribution 5 normal styleCode="Bold Teresa width [Ratio] by ">Red Cell Medical Automated count Distribution Center Width </content>21.2 % H<content styleCode="Ital ics"> (11.5-14.5 %)</content> Erythrocyte mean 26.0-34. Below low normal <content [facility] corpuscular 0 styleCode="Bold Teresa hemoglobin ">Mean Medical [Entitic mass] Corposcular Center by Automated Hemoglobin count </content>19.9 PG L<content styleCode="Ital ics"> (26.0-34.0 PG)</content> UNK 0.0 Above high <content [facility] normal styleCode="Bold Teresa ">Nucleated Red Medical Blood Cell Center Count </content>0.08 KCUMM H<content styleCode="Ital ics"> (0.0 KCUMM)</content > Platelets 130-400 <content [facility] [#/volume] in styleCode="Bold Teresa Blood by ">Platelet Medical Automated count Count Center </content>226 KCUMM<content styleCode="Ital ics"> (130-400 KCUMM)</content > UNK 0 Above high <content [facility] normal styleCode="Bold Teresa ">Nucleated Red Medical Blood Cell Center </content>2.4 /100 H<content styleCode="Ital ics"> (0 /100)</content> Platelet mean 8.0-11.0 <content [facility] volume [Entitic styleCode="Bold Teresa volume] in Blood ">Mean Platelet Medical by Automated Volume Center count </content>9.2 FL<content styleCode="Ital ics"> (8.0-11.0 FL)</content> UNK 30.0-38. Below low normal <content [facility] 0 styleCode="Bold Teresa ">Reticulocyte Medical Hemoglobin Center Equivalent </content>15.9 PG L<content styleCode="Ital ics"> (30.0-38.0 PG)</content> UNK 0.018-0. <content [facility] 1 styleCode="Bold Teresa ">Reticulocyte Medical Absolute Count Center </content>0.061 8 MCUMM<content styleCode="Ital ics"> (0.018-0.1 MCUMM)</content > UNK 9.3-17.4 Above high <content [facility] normal styleCode="Bold Teresa ">Immature Medical Reticulocyte Center Fraction </content>51.4 % H<content styleCode="Ital ics"> (9.3-17.4 %)</content> UNK 0.5-1.5 Above high <content [facility] normal styleCode="Bold Teresa ">Retic % Medical </content>1.76 Center % H<content styleCode="Ital ics"> (0.5-1.5 %)</content> ID Date Data Source [facility].[id number] 06/11/2020 10:20:00 PM EDT [facility] -0400 Name Value Range Interpretation Description Data Sup porting Code Source(s) Document(s ) Troponin < 0.034 <content [facility] I.cardiac styleCode="Bold Teresa [Mass/volume ">Troponin I Medical ] in Serum </content>< Center or Plasma 0.012 NG/ML<content styleCode="Ital ics"> (< 0.034 NG/ML)</content > ID Date Data Source HematologyRou.[id number] 06/11/2020 10:20:00 PM EDT [facility] 0400 Name Value Range Interpretation Description Data Sup porting Code Source(s) Document(s ) Leukocytes 4.4-11.0 Below low normal <content [facility] [#/volume] in styleCode="Bold Teresa Blood by ">White Blood Medical Automated count Cell Count Center </content>3.41 KCUMM L<content styleCode="Ital ics"> (4.4-11.0 KCUMM)</content > Hemoglobin 12.3-16. Below low normal <content [facility] [Mass/volume] in 0 styleCode="Bold Teresa Blood ">Hemoglobin Medical </content>8.1 Center G/DL L<content styleCode="Ital ics"> (12.3-16.0 G/DL)</content> Erythrocytes 4.0-5.1 <content [facility] [#/volume] in styleCode="Bold Teresa Blood by ">Red Blood Medical Automated count Cell Count Center </content>4.03 MCUMM<content styleCode="Ital ics"> (4.0-5.1 MCUMM)</content > Erythrocyte mean 26.0-34. Below low normal <content [facility] corpuscular 0 styleCode="Bold Teresa hemoglobin ">Mean Medical [Entitic mass] Corposcular Center by Automated Hemoglobin count </content>20.1 PG L<content styleCode="Ital ics"> (26.0-34.0 PG)</content> Erythrocyte mean 32.0-37. Below low normal <content [facility] corpuscular 0 styleCode="Bold Teresa hemoglobin ">Mean Corpus. Medical concentration Hgb Center [Mass/volume] by Concentration Automated count (MCHC) </content>28.3 G/DL L<content styleCode="Ital ics"> (32.0-37.0 G/DL)</content> Hematocrit 36.0-46. Below low normal <content [facility] [Volume 0 styleCode="Bold Teresa Fraction] of ">Hematocrit Medical Blood by </content>28.6 Center Automated count % L<content styleCode="Ital ics"> (36.0-46.0 %)</content> Erythrocyte mean 80.0-100 <content [facility] corpuscular .0 styleCode="Bold Teresa volume [Entitic ">Mean Medical volume] by Corpuscular Center Automated count Volume </content>71.0 FL<content styleCode="Ital ics"> (80.0-100.0 FL)</content> Platelet mean 8.0-11.0 <content [facility] volume [Entitic styleCode="Bold Teresa volume] in Blood ">Mean Platelet Medical by Automated Volume Center count </content>9.0 FL<content styleCode="Ital ics"> (8.0-11.0 FL)</content> Erythrocyte 11.5-14. Above high <content [facility] distribution 5 normal styleCode="Bold Teresa width [Ratio] by ">Red Cell Medical Automated count Distribution Center Width </content>21.7 % H<content styleCode="Ital ics"> (11.5-14.5 %)</content> UNK 1.6-7.3 <content [facility] styleCode="Bold Teresa ">Neutrophil Medical Count Center </content>2.88 KCUMM<content styleCode="Ital ics"> (1.6-7.3 KCUMM)</content > Neutrophils 36-66 Above high <content [facility] [#/volume] in normal styleCode="Bold Teresa Blood by ">Neutrophil Medical Automated count </content>84.4 Center % H<content styleCode="Ital ics"> (36-66 %)</content> Platelets 130-400 <content [facility] [#/volume] in styleCode="Bold Teresa Blood by ">Platelet Medical Automated count Count Center </content>310 KCUMM<content styleCode="Ital ics"> (130-400 KCUMM)</content > Monocytes 3.0-10.0 Below low normal <content [facility] [#/volume] in styleCode="Bold Teresa Blood by ">Monocyte Medical Automated count </content>0.6 % Center L<content styleCode="Ital ics"> (3.0-10.0 %)</content> Lymphocytes 24.0-44. Below low normal <content [facility] [#/volume] in 0 styleCode="Bold Teresa Blood by ">Lymphocyte Medical Automated count </content>13.2 Center % L<content styleCode="Ital ics"> (24.0-44.0 %)</content> UNK 1.0-4.8 Below low normal <content [facility] styleCode="Bold Teresa ">Lymphocyte Medical Count Center </content>0.45 KCUMM L<content styleCode="Ital ics"> (1.0-4.8 KCUMM)</content > UNK 0.2-0.9 Below low normal <content [facility] styleCode="Bold Teresa ">Monocyte Medical Count Center </content>0.02 KCUMM L<content styleCode="Ital ics"> (0.2-0.9 KCUMM)</content > UNK 0.0-0.6 <content [facility] styleCode="Bold Teresa ">Eosinophil Medical Count Center </content>0.00 KCUMM<content styleCode="Ital ics"> (0.0-0.6 KCUMM)</content > Basophils 0.0-1.0 <content [facility] [#/volume] in styleCode="Bold Teresa Blood by ">Basophil Medical Automated count </content>0.3 Center %<content styleCode="Ital ics"> (0.0-1.0 %)</content> UNK 0.0-0.3 <content [facility] styleCode="Bold Teresa ">Basophil Medical Count Center </content>0.01 KCUMM<content styleCode="Ital ics"> (0.0-0.3 KCUMM)</content > Eosinophils 0-5.0 <content [facility] [#/volume] in styleCode="Bold [facility] Blood by ">Eosinophil Medical Automated count </content>0.0 Center %<content styleCode="Ital ics"> (0-5.0 %)</content> UNK < 1 Above high <content [facility] normal styleCode="Bold Teresa ">Immature Medical Granulocyte Center Ratio </content>1.5 % H<content styleCode="Ital ics"> (< 1 %)</content> UNK 0 Above high <content [facility] normal styleCode="Bold Teresa ">Nucleated Red Medical Blood Cell Center </content>2.3 /100 H<content styleCode="Ital ics"> (0 /100)</content> UNK 0.0 Above high <content [facility] normal styleCode="Bold Teresa ">Nucleated Red Medical Blood Cell Center Count </content>0.08 KCUMM H<content styleCode="Ital ics"> (0.0 KCUMM)</content > UNK 0-0.1 <content [facility] styleCode="Bold Teresa ">Immature Medical Granulocyte Center Count </content>0.05 KCUMM<content styleCode="Ital ics"> (0-0.1 KCUMM)</content > ID Date Data Source [facility].[id number] 06/11/2020 03:27:00 PM EDT [facility] Name Value Range Interpretation Code Description Data Nazanin rce(s) Supporting Document(s ) UNK <content [facility] styleCode="Bold"> Medical Cent er Packed Red Blood Cells </content>Transfu sed 1 unit. (Reference Range: not available)
ID Date Data Source Urinalysis.[id number] 06/11/2020 01:38:00 PM EDT [facility] 0 Name Value Range Interpretation Description Data Sup porting Code Source(s) Document(s ) UNK CLEAR <content [facility] styleCode="Lisa Teresa d">Urine Medical Clarity Center </content>FABBY R <content styleCode="Jeanie lics"> (CLEAR )</content> Color of Urine YELLOW <content [facility] styleCode="Lisa Teresa d">Color, Medical Urine Center </content>YELL OW <content styleCode="Jeanie lics"> (YELLOW )</content> Glucose NEGATIVE <content [facility] [Mass/volume] styleCode="Lisa Teresa in Urine by d">Urine Medical Test strip Glucose Center </content>NEGA TIVE MG/DL<content styleCode="Jeanie lics"> (NEGATIVE MG/DL)</conten t> UNK NEGATIVE <content [facility] styleCode="Lisa Teresa d">Urine Medical Bilirubin Center </content>NEGA TIVE <content styleCode="Jeanie lics"> (NEGATIVE )</content> Ketones NEGATIVE <content [facility] [Mass/volume] styleCode="Lisa Teresa in Urine by d">Urine Medical Test strip Ketone Center </content>TRAC E MG/DL<content styleCode="Jeanie lics"> (NEGATIVE MG/DL)</conten t> Specific 1.015-1.02 <content [facility] gravity of 5 styleCode="Lisa Youngs Urine by Test d">Urine Medical strip Specific Center [place] </content>1.02 0 <content styleCode="Jeanie lics"> (1.015-1.025 )</content> pH of Urine by 4.5-8.0 <content [facility] Test strip styleCode="Lisa Teresa d">Urine pH Medical </content>6.0 Center <content styleCode="Jeanie lics"> (4.5-8.0 )</content> Protein NEGATIVE <content [facility] [Mass/volume] styleCode="Lisa Teresa in Urine by d">Urine Medical Test strip Protein Center </content>NEGA TIVE MG/DL<content styleCode="Jeanie lics"> (NEGATIVE MG/DL)</conten t> Hemoglobin NEGATIVE <content [facility] [Presence] in styleCode="Lisa Teresa Urine by Test d">Urine Blood Medical strip </content>NEGA Center TIVE <content styleCode="Jeanie lics"> (NEGATIVE )</content> Nitrite NEGATIVE <content [facility] [Presence] in styleCode="Lisa Teresa Urine by Test d">Urine Medical strip Nitrite Center </content>NEGA TIVE <content styleCode="Jeanie lics"> (NEGATIVE )</content> Leukocyte NEGATIVE <content [facility] esterase styleCode="Lisa Moore [Presence] in d">Urine Medical Urine by Test Leukocyte Center strip </content>NEGA TIVE <content styleCode="Jeanie lics"> (NEGATIVE )</content> Urobilinogen 0.2-1.0 <content [facility] [Units/volume] styleCode="Lisa Moore in Urine by d">Urine Medical Test strip Urobilinogen Center </content>0.2 MG/DL<content styleCode="Jeanie lics"> (0.2-1.0 MG/DL)</conten t> ID Date Data Source [facility].[id number] 06/11/2020 01:00:00 PM EDT [facility] Name Value Range Interpretation Code Description Data Nazanin rce(s) Supporting Document(s ) UNK NEGATIVE <content [facility] styleCode="Bold" Medical Cente r >Antibody Screen </content>NEGATI VE <content styleCode="Itali cs"> (NEGATIVE )</content> UNK <content [facility] styleCode="Bold" Medical Cente r >Blood Type </content>GROUP A (Reference Range: not available)
UNK <content [facility] styleCode="Bold" Medical Cente r >Cross-Match for Packed Cells </content>[id number] COMP A NEG (Reference Range: not available)
UNK <content [facility] styleCode="Bold" Medical Cente r >RH Type </content>POSITI VE (Reference Range: not available)
ID Date Data Source Liver 06/11/2020 11:49:00 AM EDT [facility] Profile.[id number] Name Value Range Interpretation Description Data Sup porting Code Source(s) Document(s ) Aspartate 14-36 Above high <content [facility] aminotransferase normal styleCode="Bold"> Alfa hs [Enzymatic Aspartate Medical activity/volume] Aminotransferase Center in Serum or Plasma (AST) </content>47 IU/L H<content styleCode="Italic s"> (14-36 IU/L)</content> Alanine 7-30 <content [facility] aminotransferase styleCode="Bold"> Alfa hs [Enzymatic Alanine Medical activity/volume] Aminotransferase Center in Serum or Plasma (ALT) </content>17 IU/L<content styleCode="Italic s"> (7-30 IU/L)</content> Alkaline 38-126 <content [facility] phosphatase styleCode="Bold"> Teresa [Enzymatic Alkaline Medical activity/volume] Phosphatase (ALP) Cente r in Serum or Plasma </content>77 IU/L<content styleCode="Italic s"> (38-126 IU/L)</content> Albumin 3.5-5.0 <content [facility] [Mass/volume] in styleCode="Bold"> Alfa hs Serum or Plasma Albumin Medical </content>4.0 Center G/DL<content styleCode="Italic s"> (3.5-5.0 G/DL)</content> Bilirubin.total 0.2-1.3 <content [facility] [Mass/volume] in styleCode="Bold"> Alfa hs Serum or Plasma Bilirubin Total Medical </content>0.6 Center MG/DL<content styleCode="Italic s"> (0.2-1.3 MG/DL)</content> UNK 0.0-0.3 <content [facility] styleCode="Bold"> Teresa Bilirubin, Direct Medical </content>< 0.2 Center MG/DL<content styleCode="Italic s"> (0.0-0.3 MG/DL)</content> ID Date Data Source [facility]ers.[id number] 06/11/2020 11:49:00 AM EDT [facility] -0400 Name Value Range Interpretation Description Data Sup porting Code Source(s) Document(s ) Troponin < 0.034 <content [facility] I.cardiac styleCode="Bold Teresa [Mass/volume ">Troponin I Medical ] in Serum </content>< Center or Plasma 0.012 NG/ML<content styleCode="Ital ics"> (< 0.034 NG/ML)</content > ID Date Data Source HematologyRou.[id number] 06/11/2020 11:49:00 AM [facility] Name Value Range Interpretation Description Data Sup porting Code Source(s) Document(s ) Erythrocytes 4.0-5.1 Below low normal <content [facility] [#/volume] in styleCode="Bold Teresa Blood by ">Red Blood Medical Automated count Cell Count Center </content>3.43 MCUMM L<content styleCode="Ital ics"> (4.0-5.1 MCUMM)</content > Leukocytes 4.4-11.0 <content [facility] [#/volume] in styleCode="Bold Teresa Blood by ">White Blood Medical Automated count Cell Count Center </content>6.74 KCUMM<content styleCode="Ital ics"> (4.4-11.0 KCUMM)</content > Hematocrit 36.0-46. Below low normal <content [facility] [Volume 0 styleCode="Bold Teresa Fraction] of ">Hematocrit Medical Blood by </content>23.3 Center Automated count % L<content styleCode="Ital ics"> (36.0-46.0 %)</content> Erythrocyte mean 26.0-34. Below low normal <content [facility] corpuscular 0 styleCode="Bold Teresa hemoglobin ">Mean Medical [Entitic mass] Corposcular Center by Automated Hemoglobin count </content>19.2 PG L<content styleCode="Ital ics"> (26.0-34.0 PG)</content> Hemoglobin 12.3-16. Below lower <content [facility] [Mass/volume] in 0 panic limits styleCode="Bold Braulio phs Blood ">Hemoglobin Medical </content><cont Center ent styleCode="Bold ">6.6 G/DL LL</content><co ntent styleCode="Ital ics"> (12.3-16.0 G/DL)</content> Erythrocyte mean 80.0-100 <content [facility] corpuscular .0 styleCode="Bold Teresa volume [Entitic ">Mean Medical volume] by Corpuscular Center Automated count Volume </content>67.9 FL<content styleCode="Ital ics"> (80.0-100.0 FL)</content> Platelets 130-400 <content [facility] [#/volume] in styleCode="Bold Teresa Blood by ">Platelet Medical Automated count Count Center </content>286 KCUMM<content styleCode="Ital ics"> (130-400 KCUMM)</content > Platelet mean 8.0-11.0 <content [facility] volume [Entitic styleCode="Bold Teresa volume] in Blood ">Mean Platelet Medical by Automated Volume Center count </content>8.7 FL<content styleCode="Ital ics"> (8.0-11.0 FL)</content> Erythrocyte mean 32.0-37. Below low normal <content [facility] corpuscular 0 styleCode="Bold Teresa hemoglobin ">Mean Corpus. Medical concentration Hgb Center [Mass/volume] by Concentration Automated count (MCHC) </content>28.3 G/DL L<content styleCode="Ital ics"> (32.0-37.0 G/DL)</content> Erythrocyte 11.5-14. Above high <content [facility] distribution 5 normal styleCode="Bold Teresa width [Ratio] by ">Red Cell Medical Automated count Distribution Center Width </content>20.4 % H<content styleCode="Ital ics"> (11.5-14.5 %)</content> UNK 1.0-4.8 <content [facility] styleCode="Bold Teresa ">Lymphocyte Medical Count Center </content>1.37 KCUMM<content styleCode="Ital ics"> (1.0-4.8 KCUMM)</content > Lymphocytes 24.0-44. Below low normal <content [facility] [#/volume] in 0 styleCode="Bold Teresa Blood by ">Lymphocyte Medical Automated count </content>20.3 Center % L<content styleCode="Ital ics"> (24.0-44.0 %)</content> UNK 1.6-7.3 <content [facility] styleCode="Bold Teresa ">Neutrophil Medical Count Center </content>4.97 KCUMM<content styleCode="Ital ics"> (1.6-7.3 KCUMM)</content > Neutrophils 36-66 Above high <content [facility] [#/volume] in normal styleCode="Bold Teresa Blood by ">Neutrophil Medical Automated count </content>73.8 Center % H<content styleCode="Ital ics"> (36-66 %)</content> UNK 0.2-0.9 <content [facility] styleCode="Bold Teresa ">Monocyte Medical Count Center </content>0.35 KCUMM<content styleCode="Ital ics"> (0.2-0.9 KCUMM)</content > Eosinophils 0-5.0 <content [facility] [#/volume] in styleCode="Bold Teresa Blood by ">Eosinophil Medical Automated count </content>0.1 Center %<content styleCode="Ital ics"> (0-5.0 %)</content> Monocytes 3.0-10.0 <content [facility] [#/volume] in styleCode="Bold Teresa Blood by ">Monocyte Medical Automated count </content>5.2 Center %<content styleCode="Ital ics"> (3.0-10.0 %)</content> UNK 0.0-0.6 <content [facility] styleCode="Bold Teresa ">Eosinophil Medical Count Center </content>0.01 KCUMM<content styleCode="Ital ics"> (0.0-0.6 KCUMM)</content > UNK 0.0-0.3 <content [facility] styleCode="Bold Teresa ">Basophil Medical Count Center </content>0.02 KCUMM<content styleCode="Ital ics"> (0.0-0.3 KCUMM)</content > UNK 0.0 Above high <content [facility] normal styleCode="Bold Teresa ">Nucleated Red Medical Blood Cell Center Count </content>0.06 KCUMM H<content styleCode="Ital ics"> (0.0 KCUMM)</content > Basophils 0.0-1.0 <content [facility] [#/volume] in styleCode="Bold Teresa Blood by ">Basophil Medical Automated count </content>0.3 Center %<content styleCode="Ital ics"> (0.0-1.0 %)</content> UNK 0 Above high <content [facility] normal styleCode="Bold Teresa ">Nucleated Red Medical Blood Cell Center </content>0.9 /100 H<content styleCode="Ital ics"> (0 /100)</content> UNK NORMAL <content [facility] styleCode="Bold Teresa ">Platelet Medical Estimate Center </content>LESLY L <content styleCode="Ital ics"> (NORMAL )</content> UNK 0-0.1 <content [facility] styleCode="Bold Teresa ">Immature Medical Granulocyte Center Count </content>0.02 KCUMM<content styleCode="Ital ics"> (0-0.1 KCUMM)</content > UNK < 1 <content [facility] styleCode="Bold Teresa ">Immature Medical Granulocyte Center Ratio </content>0.3 %<content styleCode="Ital ics"> (< 1 %)</content> UNK NONE <content Saint SEEN styleCode="Bold Teresa ">Basophilic Medical Stippling Center </content>SLIGH T <content styleCode="Ital ics"> (NONE SEEN )</content> UNK NORMAL <content Saint styleCode="Bold Teresa ">Polychromasia Medical </content>SLIGH Center T <content styleCode="Ital ics"> (NORMAL )</content> UNK NORMAL <content [facility] styleCode="Bold Teresa ">Hypochromia Medical </content>MODER Center ATE <content styleCode="Ital ics"> (NORMAL )</content> UNK NORMAL <content [facility] styleCode="Bold Teresa ">Anisocyte Medical </content>SLIGH Center T <content styleCode="Ital ics"> (NORMAL )</content> UNK NORMAL <content [facility] styleCode="Bold Teresa ">RBC Medical Morphology Center </content>ABNOR MAL <content styleCode="Ital ics"> (NORMAL )</content> UNK NORMAL <content [facility] styleCode="Bold Teresa ">Microcyte Medical </content>MODER Center ATE <content styleCode="Ital ics"> (NORMAL )</content> ID Date Data Source GFR(Creatinine).[id number] 06/11/2020 11:49:00 AM EDT [facility] 0-0400 Name Value Range Interpretation Code Description Data Nazanin rce(s) Supporting Document(s ) UNK > 60 <content [facility] styleCode="Bold"> Medical Cent er EGFR </content>186 GFR<content styleCode="Italic s"> (> 60 GFR)</content> ID Date Data Source Coagulation 06/11/2020 11:49:00 AM [facility] Rout.[id number] EDT Name Value Range Interpretation Code Description Data Nazanin rce(s) Supporting Document(s ) UNK < 500 Above upper panic <content [facility] limits styleCode="Bold"> Medical Cent er D-Dimer </content><conten t styleCode="Bold"> 1206 ngFEU HH</content><cont ent styleCode="Italic s"> (< 500 ngFEU)</content> ID Date Data Source BMP.[id number] 06/11/2020 11:49:00 AM EDT [facility] Name Value Range Interpretation Description Data Sup porting Code Source(s) Document(s ) Carbon dioxide, 22-30 <content [facility] total styleCode="Bold"> Teresa [Moles/volume] in Carbon Dioxide Medical Serum or Plasma </content>25 Center MEQ/L<content styleCode="Italic s"> (22-30 MEQ/L)</content> UNK 7-17 <content [facility] styleCode="Bold"> Teresa BUN </content>13 Medical MG/DL<content Center styleCode="Italic s"> (7-17 MG/DL)</content> Potassium 3.5-5.3 <content [facility] [Moles/volume] in styleCode="Bold"> Braulio phs Serum or Plasma Potassium Medical </content>4.8 Center MEQ/L<content styleCode="Italic s"> (3.5-5.3 MEQ/L)</content> Sodium 137-145 Below low <content [facility] [Moles/volume] in normal styleCode="Bold"> Braulio phs Serum or Plasma Sodium Medical </content>132 Center MEQ/L L<content styleCode="Italic s"> (137-145 MEQ/L)</content> Chloride 98-107 <content [facility] [Moles/volume] in styleCode="Bold"> Braulio phs Serum or Plasma Chloride Medical </content>102 Center MEQ/L<content styleCode="Italic s"> (98-107 MEQ/L)</content> Glucose 74-106 <content [facility] [Mass/volume] in styleCode="Bold"> Alfa hs Serum or Plasma Glucose Medical </content>101 Center MG/DL<content styleCode="Italic s"> (74-106 MG/DL)</content> Aspartate 14-36 Above high <content [facility] aminotransferase normal styleCode="Bold"> Alfa hs [Enzymatic Aspartate Medical activity/volume] Aminotransferase Center in Serum or Plasma (AST) </content>47 IU/L H<content styleCode="Italic s"> (14-36 IU/L)</content> Calcium 8.4-10. <content [facility] [Mass/volume] in 2 styleCode="Bold"> Alfa hs Serum or Plasma Calcium Medical </content>8.7 Center MG/DL<content styleCode="Italic s"> (8.4-10.2 MG/DL)</content> UNK > 60 <content [facility] styleCode="Bold"> Teresa EGFR Medical </content>186 Center GFR<content styleCode="Italic s"> (> 60 GFR)</content> Creatinine 0.5-1.3 Below low <content [facility] [Mass/volume] in normal styleCode="Bold"> Alfa hs Serum or Plasma Creatinine Medical </content>0.4 Center MG/DL L<content styleCode="Italic s"> (0.5-1.3 MG/DL)</content> Bilirubin.total 0.2-1.3 <content [facility] [Mass/volume] in styleCode="Bold"> Alfa hs Serum or Plasma Bilirubin Total Medical </content>0.6 Center MG/DL<content styleCode="Italic s"> (0.2-1.3 MG/DL)</content> Alkaline 38-126 <content [facility] phosphatase styleCode="Bold"> Teresa [Enzymatic Alkaline Medical activity/volume] Phosphatase (ALP) Cente r in Serum or Plasma </content>77 IU/L<content styleCode="Italic s"> (38-126 IU/L)</content> Alanine 7-30 <content Saint aminotransferase styleCode="Bold"> Alfa hs [Enzymatic Alanine Medical activity/volume] Aminotransferase Center in Serum or Plasma (ALT) </content>17 IU/L<content styleCode="Italic s"> (7-30 IU/L)</content> Albumin 3.5-5.0 <content Saint [Mass/volume] in styleCode="Bold"> Alfa hs Serum or Plasma Albumin Medical </content>4.0 Center G/DL<content styleCode="Italic s"> (3.5-5.0 G/DL)</content> ID Date Data Source [id number] 06/11/2020 12:00:00 AM EDT [facility] Name Value Range Interpretation Code Description Data Nazanin rce(s) Supporting Document(s ) 2019-nCoV [facility] RNA XXX DANYA+probe- Imp This lab was ordered by [facility] and reported by [facility]. ID Date Data Source [id number] 04/29/2020 02:30:00 PM EDT [facility] Name Value Range Interpretation Code Description Data Naznain rce(s) Supporting Document(s ) SARS-CoV-2 [facility] Ql DANYA+probe This lab was ordered by [facility] nd reported by [facility]. ID Date Data Source [id number] 03/15/2020 03:21:00 PM EDT [facility] Name Value Range Interpretation Code Description Data Nazanin rce(s) Supporting Document(s ) COV2 [facility] This lab was ordered by STEPHANIENJ PEGGY and reported by [facility]. ID Date Data Source Urinalysis.[id number] 11/20/2019 05:41:00 PM EST [facility] 0 Name Value Range Interpretation Description Data Sup porting Code Source(s) Document(s ) Color of Urine YELLOW <content Saint styleCode="Lisa Teresa d">Color, Medical Urine Center </content>YELL OW <content styleCode="Jeanie lics"> (YELLOW )</content> UNK NEGATIVE <content Saint styleCode="Lisa Teresa d">Urine Medical Bilirubin Center </content>NEGA TIVE <content styleCode="Jeanie lics"> (NEGATIVE )</content> UNK CLEAR <content Saint styleCode="Lisa Teresa d">Urine Medical Clarity Center </content>FABBY R <content styleCode="Jeanie lics"> (CLEAR )</content> Glucose NEGATIVE <content Saint [Mass/volume] styleCode="Lisa Youngs in Urine by d">Urine Medical Test strip Glucose Center </content>NEGA TIVE MG/DL<content styleCode="Jeanie lics"> (NEGATIVE MG/DL)</conten t> Specific 1.015-1.02 <content Saint gravity of 5 styleCode="Lisa Youngs Urine by Test d">Urine Medical strip Specific Center [place] </content>1.02 0 <content styleCode="Jeanie lics"> (1.015-1.025 )</content> Protein NEGATIVE <content Saint [Mass/volume] styleCode="Lisa Youngs in Urine by d">Urine Medical Test strip Protein Center </content>NEGA TIVE MG/DL<content styleCode="Jeanie lics"> (NEGATIVE MG/DL)</conten t> pH of Urine by 4.5-8.0 <content Saint Test strip styleCode="Lisa Teresa d">Urine pH Medical </content>6.0 Center <content styleCode="Jeanie lics"> (4.5-8.0 )</content> Hemoglobin NEGATIVE <content Saint [Presence] in styleCode="Lisa Youngs Urine by Test d">Urine Blood Medical strip </content>NEGA Center TIVE <content styleCode="Jeanie lics"> (NEGATIVE )</content> Ketones NEGATIVE <content Saint [Mass/volume] styleCode="Lisa Teresa in Urine by d">Urine Medical Test strip Ketone Center </content>NEGA TIVE MG/DL<content styleCode="Jeanie lics"> (NEGATIVE MG/DL)</conten t> UNK 0-3 <content Saint styleCode="Lisa Teresa d">Urine White Medical Blood Cell Center </content>5 - 10 HPF<content styleCode="Jeanie lics"> (0-3 HPF)</content> Urobilinogen 0.2-1.0 <content Saint [Units/volume] styleCode="Lisa Youngs in Urine by d">Urine Medical Test strip Urobilinogen Center </content>0.2 MG/DL<content styleCode="Jeanie lics"> (0.2-1.0 MG/DL)</conten t> Leukocyte NEGATIVE <content Saint esterase styleCode="Lisa Youngs [Presence] in d">Urine Medical Urine by Test Leukocyte Center strip </content>NEGA TIVE <content styleCode="Jeanie lics"> (NEGATIVE )</content> Nitrite NEGATIVE <content Saint [Presence] in styleCode="Lisa Moore Urine by Test d">Urine Medical strip Nitrite Center </content>POSI TIVE <content styleCode="Jeanie lics"> (NEGATIVE )</content> UNK <content Saint styleCode="Lisa Teresa d">Urine Red Medical Blood Cell Center </content>NONE SEEN (Reference Range: not available)<br/ > UNK NEGATIVE <content Saint styleCode="Lisa Tereas d">Urine Medical Bacteria Center </content>MANY HPF<content styleCode="Jeanie lics"> (NEGATIVE HPF)</content> UNK NONE SEEN <content Saint styleCode="Lisa Teresa d">Epithelial Medical Cell Center </content>10 - 20 HPF<content styleCode="Jeanie lics"> (NONE SEEN HPF)</content> ID Date Data Source HematologyRou.[id number] 11/20/2019 05:41:00 PM [facility] Name Value Range Interpretation Description Data Sup porting Code Source(s) Document(s ) Erythrocytes 4.0-5.1 Below low normal <content Saint [#/volume] in styleCode="Bold Teresa Blood by ">Red Blood Medical Automated count Cell Count Center </content>3.57 MCUMM L<content styleCode="Ital ics"> (4.0-5.1 MCUMM)</content > Hematocrit 36.0-46. Below low normal <content Saint [Volume 0 styleCode="Bold Teresa Fraction] of ">Hematocrit Medical Blood by </content>25.4 Center Automated count % L<content styleCode="Ital ics"> (36.0-46.0 %)</content> Leukocytes 4.4-11.0 <content Saint [#/volume] in styleCode="Bold Teresa Blood by ">White Blood Medical Automated count Cell Count Center </content>9.37 KCUMM<content styleCode="Ital ics"> (4.4-11.0 KCUMM)</content > Hemoglobin 12.3-16. Below low normal <content Saint [Mass/volume] in 0 styleCode="Bold Teresa Blood ">Hemoglobin Medical </content>7.5 Center G/DL L<content styleCode="Ital ics"> (12.3-16.0 G/DL)</content> Erythrocyte mean 80.0-100 <content Saint corpuscular .0 styleCode="Bold Teresa volume [Entitic ">Mean Medical volume] by Corpuscular Center Automated count Volume </content>71.1 FL<content styleCode="Ital ics"> (80.0-100.0 FL)</content> Erythrocyte 11.5-14. Above high <content Saint distribution 5 normal styleCode="Bold Teresa width [Ratio] by ">Red Cell Medical Automated count Distribution Center Width </content>19.9 % H<content styleCode="Ital ics"> (11.5-14.5 %)</content> Erythrocyte mean 32.0-37. Below low normal <content [facility] corpuscular 0 styleCode="Bold Teresa hemoglobin ">Mean Corpus. Medical concentration Hgb Center [Mass/volume] by Concentration Automated count (MCHC) </content>29.5 G/DL L<content styleCode="Ital ics"> (32.0-37.0 G/DL)</content> Platelet mean 8.0-11.0 <content Saint volume [Entitic styleCode="Bold Teresa volume] in Blood ">Mean Platelet Medical by Automated Volume Center count </content>8.9 FL<content styleCode="Ital ics"> (8.0-11.0 FL)</content> Erythrocyte mean 26.0-34. Below low normal <content Saint corpuscular 0 styleCode="Bold Teresa hemoglobin ">Mean Medical [Entitic mass] Corposcular Center by Automated Hemoglobin count </content>21.0 PG L<content styleCode="Ital ics"> (26.0-34.0 PG)</content> Platelets 130-400 <content Saint [#/volume] in styleCode="Bold Teresa Blood by ">Platelet Medical Automated count Count Center </content>264 KCUMM<content styleCode="Ital ics"> (130-400 KCUMM)</content > Neutrophils 36-66 Above high <content Saint [#/volume] in normal styleCode="Bold Teresa Blood by ">Neutrophil Medical Automated count </content>66.7 Center % H<content styleCode="Ital ics"> (36-66 %)</content> Monocytes 3.0-10.0 <content Saint [#/volume] in styleCode="Bold Teresa Blood by ">Monocyte Medical Automated count </content>5.0 Center %<content styleCode="Ital ics"> (3.0-10.0 %)</content> UNK 1.6-7.3 <content Saint styleCode="Bold Teresa ">Neutrophil Medical Count Center </content>6.25 KCUMM<content styleCode="Ital ics"> (1.6-7.3 KCUMM)</content > UNK 1.0-4.8 <content Saint styleCode="Bold Teresa ">Lymphocyte Medical Count Center </content>2.47 KCUMM<content styleCode="Ital ics"> (1.0-4.8 KCUMM)</content > Lymphocytes 24.0-44. <content Saint [#/volume] in 0 styleCode="Bold Teresa Blood by ">Lymphocyte Medical Automated count </content>26.4 Center %<content styleCode="Ital ics"> (24.0-44.0 %)</content> UNK 0.0-0.6 <content Saint styleCode="Bold Teresa ">Eosinophil Medical Count Center </content>0.09 KCUMM<content styleCode="Ital ics"> (0.0-0.6 KCUMM)</content > UNK 0.0-0.3 <content Saint styleCode="Bold Teresa ">Basophil Medical Count Center </content>0.05 KCUMM<content styleCode="Ital ics"> (0.0-0.3 KCUMM)</content > Basophils 0.0-1.0 <content Saint [#/volume] in styleCode="Bold Teresa Blood by ">Basophil Medical Automated count </content>0.5 Center %<content styleCode="Ital ics"> (0.0-1.0 %)</content> UNK 0.2-0.9 <content Saint styleCode="Bold Teresa ">Monocyte Medical Count Center </content>0.47 KCUMM<content styleCode="Ital ics"> (0.2-0.9 KCUMM)</content > Eosinophils 0-5.0 <content Saint [#/volume] in styleCode="Bold Teresa Blood by ">Eosinophil Medical Automated count </content>1.0 Center %<content styleCode="Ital ics"> (0-5.0 %)</content> UNK 0-0.1 <content Saint styleCode="Bold Teresa ">Immature Medical Granulocyte Center Count </content>0.04 KCUMM<content styleCode="Ital ics"> (0-0.1 KCUMM)</content > UNK 0.0 <content Saint styleCode="Bold Teresa ">Nucleated Red Medical Blood Cell Center Count </content>0.00 KCUMM<content styleCode="Ital ics"> (0.0 KCUMM)</content > UNK < 1 <content Saint styleCode="Bold Teresa ">Immature Medical Granulocyte Center Ratio </content>0.4 %<content styleCode="Ital ics"> (< 1 %)</content> UNK 0 <content Saint styleCode="Bold Teresa ">Nucleated Red Medical Blood Cell Center </content>0.0 /100<content styleCode="Ital ics"> (0 /100)</content> ID Date Data Source GFR(Creatinine).[id number] 11/20/2019 05:41:00 PM EST [facility] 0-0400 Name Value Range Interpretation Code Description Data Nazanin rce(s) Supporting Document(s ) UNK > 60 <content [facility] styleCode="Bold"> Medical Cent er EGFR </content>144 GFR<content styleCode="Italic s"> (> 60 GFR)</content> ID Date Data Source [facility].[id number] 11/20/2019 05:41:00 PM EST [facility] Name Value Range Interpretation Description Data Sup porting Code Source(s) Document(s ) Chloride 98-107 Above high normal <content Saint [Moles/volume] styleCode="Lisa Teresa in Serum or d">Chloride Medical Plasma </content>108 Center MEQ/L H<content styleCode="Jeanie lics"> (98-107 MEQ/L)</conten t> Potassium 3.5-5.3 <content Saint [Moles/volume] styleCode="Lisa Teresa in Serum or d">Potassium Medical Plasma </content>4.1 Center MEQ/L<content styleCode="Jeanie lics"> (3.5-5.3 MEQ/L)</conten t> Sodium 137-145 Below low normal <content Saint [Moles/volume] styleCode="Lisa Teresa in Serum or d">Sodium Medical Plasma </content>135 Center MEQ/L L<content styleCode="Jeanie lics"> (137-145 MEQ/L)</conten t> Carbon 22-30 Below low normal <content Saint dioxide, total styleCode="Lisa Teresa [Moles/volume] d">Carbon Medical in Serum or Dioxide Center Plasma </content>20 MEQ/L L<content styleCode="Jeanie lics"> (22-30 MEQ/L)</conten t> Glucose 74-106 <content Saint [Mass/volume] styleCode="Lisa Teresa in Serum or d">Glucose Medical Plasma </content>102 Center MG/DL<content styleCode="Jeanie lics"> (74-106 MG/DL)</conten t> Creatinine 0.5-1.3 <content Saint [Mass/volume] styleCode="Lisa Teresa in Serum or d">Creatinine Medical Plasma </content>0.5 Center MG/DL<content styleCode="Jeanie lics"> (0.5-1.3 MG/DL)</conten t> UNK 7-17 <content Saint styleCode="Lisa Teresa d">BUN Medical </content>16 Center MG/DL<content styleCode="Jeanie lics"> (7-17 MG/DL)</conten t> UNK > 60 <content Saint styleCode="Lisa Teresa d">EGFR Medical </content>144 Center GFR<content styleCode="Jeanie lics"> (> 60 GFR)</content> Calcium 8.4-10.2 <content Saint [Mass/volume] styleCode="Lisa Teresa in Serum or d">Calcium Medical Plasma </content>8.8 Center MG/DL<content styleCode="Jeanie lics"> (8.4-10.2 MG/DL)</conten t> ID Date Data Source BMP.[id number] 06/29/2019 01:07:00 PM EDT [facility] Name Value Range Interpretation Description Data Sup porting Code Source(s) Document(s ) Potassium 3.5-5.3 <content Saint [Moles/volume styleCode="Lisa Teresa ] in Serum or d">Potassium Medical Plasma </content>4.1 Center MEQ/L<content styleCode="Jeanie lics"> (3.5-5.3 MEQ/L)</conten t> ID Date Data Source Liver 06/29/2019 05:23:00 AM EDT [facility] Profile.[id number] Name Value Range Interpretation Description Data Sup porting Code Source(s) Document(s ) Alanine 7-30 <content Saint aminotransferase styleCode="Bold"> Alfa hs [Enzymatic Alanine Medical activity/volume] Aminotransferase Center in Serum or Plasma (ALT) </content>16 IU/L<content styleCode="Italic s"> (7-30 IU/L)</content> Aspartate 14-36 <content Saint aminotransferase styleCode="Bold"> Alfa hs [Enzymatic Aspartate Medical activity/volume] Aminotransferase Center in Serum or Plasma (AST) </content>29 IU/L<content styleCode="Italic s"> (14-36 IU/L)</content> Alkaline 38-126 <content Saint phosphatase styleCode="Bold"> Teresa [Enzymatic Alkaline Medical activity/volume] Phosphatase (ALP) Cente r in Serum or Plasma </content>59 IU/L<content styleCode="Italic s"> (38-126 IU/L)</content> Bilirubin.total 0.2-1.3 <content Saint [Mass/volume] in styleCode="Bold"> Alfa hs Serum or Plasma Bilirubin Total Medical </content>0.3 Center MG/DL<content styleCode="Italic s"> (0.2-1.3 MG/DL)</content> Albumin 3.5-5.0 <content Saint [Mass/volume] in styleCode="Bold"> Alfa hs Serum or Plasma Albumin Medical </content>4.2 Center G/DL<content styleCode="Italic s"> (3.5-5.0 G/DL)</content> ID Date Data Source HematologyRou.[id number] 06/29/2019 05:23:00 AM EDT [facility] 0400 Name Value Range Interpretation Description Data Sup porting Code Source(s) Document(s ) Hematocrit 36.0-46. Below low normal <content Saint [Volume 0 styleCode="Bold Teresa Fraction] of ">Hematocrit Medical Blood by </content>29.8 Center Automated count % L<content styleCode="Ital ics"> (36.0-46.0 %)</content> Leukocytes 4.4-11.0 <content Saint [#/volume] in styleCode="Bold Teresa Blood by ">White Blood Medical Automated count Cell Count Center </content>8.93 KCUMM<content styleCode="Ital ics"> (4.4-11.0 KCUMM)</content > Hemoglobin 12.3-16. Below low normal <content Saint [Mass/volume] in 0 styleCode="Bold Teresa Blood ">Hemoglobin Medical </content>8.3 Center G/DL L<content styleCode="Ital ics"> (12.3-16.0 G/DL)</content> Erythrocytes 4.0-5.1 Below low normal <content Saint [#/volume] in styleCode="Bold Teresa Blood by ">Red Blood Medical Automated count Cell Count Center </content>3.96 MCUMM L<content styleCode="Ital ics"> (4.0-5.1 MCUMM)</content > Erythrocyte mean 80.0-100 <content [facility] corpuscular .0 styleCode="Bold Teresa volume [Entitic ">Mean Medical volume] by Corpuscular Center Automated count Volume </content>75.3 FL<content styleCode="Ital ics"> (80.0-100.0 FL)</content> Erythrocyte mean 26.0-34. Below low normal <content Saint corpuscular 0 styleCode="Bold Teresa hemoglobin ">Mean Medical [Entitic mass] Corposcular Center by Automated Hemoglobin count </content>21.0 PG L<content styleCode="Ital ics"> (26.0-34.0 PG)</content> Erythrocyte mean 32.0-37. Below low normal <content Saint corpuscular 0 styleCode="Bold Teresa hemoglobin ">Mean Corpus. Medical concentration Hgb Center [Mass/volume] by Concentration Automated count (MCHC) </content>27.9 G/DL L<content styleCode="Ital ics"> (32.0-37.0 G/DL)</content> Erythrocyte 11.5-14. Above high <content Saint distribution 5 normal styleCode="Bold Teresa width [Ratio] by ">Red Cell Medical Automated count Distribution Center Width </content>23.0 % H<content styleCode="Ital ics"> (11.5-14.5 %)</content> Platelets 130-400 <content Saint [#/volume] in styleCode="Bold Teresa Blood by ">Platelet Medical Automated count Count Center </content>321 KCUMM<content styleCode="Ital ics"> (130-400 KCUMM)</content > Platelet mean 8.0-11.0 <content Saint volume [Entitic styleCode="Bold Teresa volume] in Blood ">Mean Platelet Medical by Automated Volume Center count </content>9.4 FL<content styleCode="Ital ics"> (8.0-11.0 FL)</content> Neutrophils 36-66 Above high <content Saint [#/volume] in normal styleCode="Bold Teersa Blood by ">Neutrophil Medical Automated count </content>90.3 Center % H<content styleCode="Ital ics"> (36-66 %)</content> Lymphocytes 24.0-44. Below low normal <content Saint [#/volume] in 0 styleCode="Bold Teresa Blood by ">Lymphocyte Medical Automated count </content>8.4 % Center L<content styleCode="Ital ics"> (24.0-44.0 %)</content> UNK 1.6-7.3 Above high <content Saint normal styleCode="Bold Teresa ">Neutrophil Medical Count Center </content>8.06 KCUMM H<content styleCode="Ital ics"> (1.6-7.3 KCUMM)</content > UNK 1.0-4.8 Below low normal <content Saint styleCode="Bold Teresa ">Lymphocyte Medical Count Center </content>0.75 KCUMM L<content styleCode="Ital ics"> (1.0-4.8 KCUMM)</content > Eosinophils 0-5.0 <content Saint [#/volume] in styleCode="Bold Teresa Blood by ">Eosinophil Medical Automated count </content>0.2 Center %<content styleCode="Ital ics"> (0-5.0 %)</content> UNK 0.2-0.9 Below low normal <content Saint styleCode="Bold Teresa ">Monocyte Medical Count Center </content>0.04 KCUMM L<content styleCode="Ital ics"> (0.2-0.9 KCUMM)</content > Monocytes 3.0-10.0 Below low normal <content Saint [#/volume] in styleCode="Bold Teresa Blood by ">Monocyte Medical Automated count </content>0.4 % Center L<content styleCode="Ital ics"> (3.0-10.0 %)</content> UNK 0.0-0.3 <content Saint styleCode="Bold Teresa ">Basophil Medical Count Center </content>0.00 KCUMM<content styleCode="Ital ics"> (0.0-0.3 KCUMM)</content > Basophils 0.0-1.0 <content Saint [#/volume] in styleCode="Bold Teresa Blood by ">Basophil Medical Automated count </content>0.0 Center %<content styleCode="Ital ics"> (0.0-1.0 %)</content> UNK 0.0-0.6 <content Saint styleCode="Bold Teresa ">Eosinophil Medical Count Center </content>0.02 KCUMM<content styleCode="Ital ics"> (0.0-0.6 KCUMM)</content > UNK < 1 <content Saint styleCode="Bold Teresa ">Immature Medical Granulocyte Center Ratio </content>0.7 %<content styleCode="Ital ics"> (< 1 %)</content> UNK 0-0.1 <content Saint styleCode="Bold Teresa ">Immature Medical Granulocyte Center Count </content>0.06 KCUMM<content styleCode="Ital ics"> (0-0.1 KCUMM)</content > UNK 0 Above high <content Saint normal styleCode="Bold Teresa ">Nucleated Red Medical Blood Cell Center </content>0.3 /100 H<content styleCode="Ital ics"> (0 /100)</content> UNK 0.0 Above high <content Saint normal styleCode="Bold Teresa ">Nucleated Red Medical Blood Cell Center Count </content>0.03 KCUMM H<content styleCode="Ital ics"> (0.0 KCUMM)</content > ID Date Data Source GFR(Creatinine).[id number] 06/29/2019 05:23:00 AM EDT [facility] 0-0400 Name Value Range Interpretation Code Description Data Nazanin rce(s) Supporting Document(s ) UNK > 60 <content [facility] styleCode="Bold"> Medical Cent er EGFR </content>187 GFR<content styleCode="Italic s"> (> 60 GFR)</content> ID Date Data Source MROUTINECCDA.[id number] 06/29/2019 05:23:00 AM EDT [facility] -0400 Name Value Range Interpretation Description Data Sup porting Code Source(s) Document(s ) UNK >= 1.0 <content Saint styleCode="Lisa Teresa d">AG Ratio Medical </content>1.4 Center <content styleCode="Jeanie lics"> (>= 1.0 )</content> UNK 2.3-3.5 <content Saint styleCode="Lisa Teresa d">Globulin Medical </content>3.0 Center G/DL<content styleCode="Jeanie lics"> (2.3-3.5 G/DL)</content > Magnesium 1.6-2.3 <content Saint [Mass/volume] styleCode="Lisa Teresa in Serum or d">Magnesium Medical Plasma </content>2.2 Center MG/DL<content styleCode="Jeanie lics"> (1.6-2.3 MG/DL)</conten t> Protein 6.3-8.2 <content Saint [Mass/volume] styleCode="Lisa Teresa in Serum or d">Total Medical Plasma Protein Center </content>7.2 G/DL<content styleCode="Jeanie lics"> (6.3-8.2 G/DL)</content > Phosphate 2.5-4.5 <content Saint [Mass/volume] styleCode="Lisa Teresa in Serum or d">Phosphorus Medical Plasma </content>4.2 Center MG/DL<content styleCode="Jeanie lics"> (2.5-4.5 MG/DL)</conten t> ID Date Data Source [facility].[id number] 06/29/2019 05:23:00 AM EDT [facility] Name Value Range Interpretation Description Data Sup porting Code Source(s) Document(s ) Potassium <content Saint [Moles/volume] in styleCode="Bold"> Braulio phs Serum or Plasma Potassium Medical </content>Test Center not performed. MEQ/L (Reference Range: not available)
Sodium 137-145 <content Saint [Moles/volume] in styleCode="Bold"> Braulio phs Serum or Plasma Sodium Medical </content>138 Center MEQ/L<content styleCode="Italic s"> (137-145 MEQ/L)</content> Chloride 98-107 <content Saint [Moles/volume] in styleCode="Bold"> Braulio phs Serum or Plasma Chloride Medical </content>102 Center MEQ/L<content styleCode="Italic s"> (98-107 MEQ/L)</content> Creatinine 0.5-1.3 Below low <content Saint [Mass/volume] in normal styleCode="Bold"> Alfa hs Serum or Plasma Creatinine Medical </content>0.4 Center MG/DL L<content styleCode="Italic s"> (0.5-1.3 MG/DL)</content> UNK 7-17 <content Saint styleCode="Bold"> Teresa BUN </content>11 Medical MG/DL<content Center styleCode="Italic s"> (7-17 MG/DL)</content> Glucose 74-106 Above high <content Saint [Mass/volume] in normal styleCode="Bold"> Alfa hs Serum or Plasma Glucose Medical </content>160 Center MG/DL H<content styleCode="Italic s"> (74-106 MG/DL)</content> Carbon dioxide, 22-30 <content Saint total styleCode="Bold"> Teresa [Moles/volume] in Carbon Dioxide Medical Serum or Plasma </content>26 Center MEQ/L<content styleCode="Italic s"> (22-30 MEQ/L)</content> Aspartate 14-36 <content Saint aminotransferase styleCode="Bold"> Alfa hs [Enzymatic Aspartate Medical activity/volume] Aminotransferase Center in Serum or Plasma (AST) </content>29 IU/L<content styleCode="Italic s"> (14-36 IU/L)</content> UNK > 60 <content Saint styleCode="Bold"> Teresa EGFR Medical </content>187 Center GFR<content styleCode="Italic s"> (> 60 GFR)</content> Alanine 7-30 <content Saint aminotransferase styleCode="Bold"> Alfa hs [Enzymatic Alanine Medical activity/volume] Aminotransferase Center in Serum or Plasma (ALT) </content>16 IU/L<content styleCode="Italic s"> (7-30 IU/L)</content> Calcium 8.4-10. <content Saint [Mass/volume] in 2 styleCode="Bold"> Alfa hs Serum or Plasma Calcium Medical </content>10.2 Center MG/DL<content styleCode="Italic s"> (8.4-10.2 MG/DL)</content> Bilirubin.total 0.2-1.3 <content Saint [Mass/volume] in styleCode="Bold"> Alfa hs Serum or Plasma Bilirubin Total Medical </content>0.3 Center MG/DL<content styleCode="Italic s"> (0.2-1.3 MG/DL)</content> Alkaline 38-126 <content [facility] phosphatase styleCode="Bold"> Teresa [Enzymatic Alkaline Medical activity/volume] Phosphatase (ALP) Cente r in Serum or Plasma </content>59 IU/L<content styleCode="Italic s"> (38-126 IU/L)</content> Albumin 3.5-5.0 <content [facility] [Mass/volume] in styleCode="Bold"> Alfa hs Serum or Plasma Albumin Medical </content>4.2 Center G/DL<content styleCode="Italic s"> (3.5-5.0 G/DL)</content> ID Date Data Source Liver 06/28/2019 06:40:00 AM EDT [facility] Profile.[id number] Name Value Range Interpretation Description Data Sup porting Code Source(s) Document(s ) Alanine 7-30 <content [facility] aminotransferase styleCode="Bold"> Alfa hs [Enzymatic Alanine Medical activity/volume] Aminotransferase Center in Serum or Plasma (ALT) </content>15 IU/L<content styleCode="Italic s"> (7-30 IU/L)</content> Aspartate 14-36 <content [facility] aminotransferase styleCode="Bold"> Alfa hs [Enzymatic Aspartate Medical activity/volume] Aminotransferase Center in Serum or Plasma (AST) </content>20 IU/L<content styleCode="Italic s"> (14-36 IU/L)</content> Alkaline 38-126 <content [facility] phosphatase styleCode="Bold"> Teresa [Enzymatic Alkaline Medical activity/volume] Phosphatase (ALP) Cente r in Serum or Plasma </content>74 IU/L<content styleCode="Italic s"> (38-126 IU/L)</content> Albumin 3.5-5.0 <content [facility] [Mass/volume] in styleCode="Bold"> Alfa hs Serum or Plasma Albumin Medical </content>3.8 Center G/DL<content styleCode="Italic s"> (3.5-5.0 G/DL)</content> Bilirubin.total 0.2-1.3 <content [facility] [Mass/volume] in styleCode="Bold"> Alfa hs Serum or Plasma Bilirubin Total Medical </content>0.3 Center MG/DL<content styleCode="Italic s"> (0.2-1.3 MG/DL)</content> ID Date Data Source HematologyRou.[id number] 06/28/2019 06:40:00 AM EDT [facility] 0400 Name Value Range Interpretation Description Data Sup porting Code Source(s) Document(s ) Leukocytes 4.4-11.0 <content [facility] [#/volume] in styleCode="Bold Teresa Blood by ">White Blood Medical Automated count Cell Count Center </content>7.63 KCUMM<content styleCode="Ital ics"> (4.4-11.0 KCUMM)</content > Hematocrit 36.0-46. Below low normal <content [facility] [Volume 0 styleCode="Bold Teresa Fraction] of ">Hematocrit Medical Blood by </content>27.8 Center Automated count % L<content styleCode="Ital ics"> (36.0-46.0 %)</content> Hemoglobin 12.3-16. Below low normal <content [facility] [Mass/volume] in 0 styleCode="Bold Teresa Blood ">Hemoglobin Medical </content>8.0 Center G/DL L<content styleCode="Ital ics"> (12.3-16.0 G/DL)</content> Erythrocytes 4.0-5.1 Below low normal <content [facility] [#/volume] in styleCode="Bold Teresa Blood by ">Red Blood Medical Automated count Cell Count Center </content>3.76 MCUMM L<content styleCode="Ital ics"> (4.0-5.1 MCUMM)</content > Erythrocyte mean 32.0-37. Below low normal <content [facility] corpuscular 0 styleCode="Bold Teresa hemoglobin ">Mean Corpus. Medical concentration Hgb Center [Mass/volume] by Concentration Automated count (MCHC) </content>28.8 G/DL L<content styleCode="Ital ics"> (32.0-37.0 G/DL)</content> Erythrocyte mean 26.0-34. Below low normal <content [facility] corpuscular 0 styleCode="Bold Teresa hemoglobin ">Mean Medical [Entitic mass] Corposcular Center by Automated Hemoglobin count </content>21.3 PG L<content styleCode="Ital ics"> (26.0-34.0 PG)</content> Erythrocyte mean 80.0-100 <content [facility] corpuscular .0 styleCode="Bold Teresa volume [Entitic ">Mean Medical volume] by Corpuscular Center Automated count Volume </content>73.9 FL<content styleCode="Ital ics"> (80.0-100.0 FL)</content> Platelet mean 8.0-11.0 <content [facility] volume [Entitic styleCode="Bold Teresa volume] in Blood ">Mean Platelet Medical by Automated Volume Center count </content>9.7 FL<content styleCode="Ital ics"> (8.0-11.0 FL)</content> Erythrocyte 11.5-14. Above high <content [facility] distribution 5 normal styleCode="Bold Teresa width [Ratio] by ">Red Cell Medical Automated count Distribution Center Width </content>22.5 % H<content styleCode="Ital ics"> (11.5-14.5 %)</content> Platelets 130-400 <content [facility] [#/volume] in styleCode="Bold Teresa Blood by ">Platelet Medical Automated count Count Center </content>307 KCUMM<content styleCode="Ital ics"> (130-400 KCUMM)</content > UNK 1.6-7.3 <content Saint styleCode="Bold Teresa ">Neutrophil Medical Count Center </content>5.87 KCUMM<content styleCode="Ital ics"> (1.6-7.3 KCUMM)</content > Lymphocytes 24.0-44. Below low normal <content Saint [#/volume] in 0 styleCode="Bold Teresa Blood by ">Lymphocyte Medical Automated count </content>18.7 Center % L<content styleCode="Ital ics"> (24.0-44.0 %)</content> Neutrophils 36-66 Above high <content Saint [#/volume] in normal styleCode="Bold Teresa Blood by ">Neutrophil Medical Automated count </content>77.0 Center % H<content styleCode="Ital ics"> (36-66 %)</content> UNK 1.0-4.8 <content Saint styleCode="Bold Teresa ">Lymphocyte Medical Count Center </content>1.43 KCUMM<content styleCode="Ital ics"> (1.0-4.8 KCUMM)</content > Monocytes 3.0-10.0 <content [facility] [#/volume] in styleCode="Bold Teresa Blood by ">Monocyte Medical Automated count </content>3.7 Center %<content styleCode="Ital ics"> (3.0-10.0 %)</content> UNK 0.2-0.9 <content Saint styleCode="Bold Teresa ">Monocyte Medical Count Center </content>0.28 KCUMM<content styleCode="Ital ics"> (0.2-0.9 KCUMM)</content > Eosinophils 0-5.0 <content Saint [#/volume] in styleCode="Bold Teresa Blood by ">Eosinophil Medical Automated count </content>0.0 Center %<content styleCode="Ital ics"> (0-5.0 %)</content> UNK 0.0-0.6 <content Saint styleCode="Bold Teresa ">Eosinophil Medical Count Center </content>0.00 KCUMM<content styleCode="Ital ics"> (0.0-0.6 KCUMM)</content > Basophils 0.0-1.0 <content Saint [#/volume] in styleCode="Bold Teresa Blood by ">Basophil Medical Automated count </content>0.1 Center %<content styleCode="Ital ics"> (0.0-1.0 %)</content> UNK 0.0 Above high <content [facility] normal styleCode="Bold Teresa ">Nucleated Red Medical Blood Cell Center Count </content>0.03 KCUMM H<content styleCode="Ital ics"> (0.0 KCUMM)</content > UNK 0 Above high <content Saint normal styleCode="Bold Teresa ">Nucleated Red Medical Blood Cell Center </content>0.4 /100 H<content styleCode="Ital ics"> (0 /100)</content> UNK 0.0-0.3 <content Saint styleCode="Bold Teresa ">Basophil Medical Count Center </content>0.01 KCUMM<content styleCode="Ital ics"> (0.0-0.3 KCUMM)</content > UNK < 1 <content Saint styleCode="Bold Teresa ">Immature Medical Granulocyte Center Ratio </content>0.5 %<content styleCode="Ital ics"> (< 1 %)</content> UNK 0-0.1 <content [facility] styleCode="Bold Teresa ">Immature Medical Granulocyte Center Count </content>0.04 KCUMM<content styleCode="Ital ics"> (0-0.1 KCUMM)</content > ID Date Data Source GFR(Creatinine).[id number] 06/28/2019 06:40:00 AM EDT [facility] 0-0400 Name Value Range Interpretation Code Description Data Nazanin rce(s) Supporting Document(s ) UNK > 60 <content [facility] styleCode="Bold"> Medical Cent er EGFR </content>187 GFR<content styleCode="Italic s"> (> 60 GFR)</content> ID Date Data Source CHMROUTINECCDA.[id number] 06/28/2019 06:40:00 AM EDT [facility] -0400 Name Value Range Interpretation Description Data Sup porting Code Source(s) Document(s ) Magnesium 1.6-2.3 <content [facility] [Mass/volume] styleCode="Lisa Teresa in Serum or d">Magnesium Medical Plasma </content>2.3 Center MG/DL<content styleCode="Jeanie lics"> (1.6-2.3 MG/DL)</conten t> UNK 2.3-3.5 <content Saint styleCode="Lisa Teresa d">Globulin Medical </content>2.9 Center G/DL<content styleCode="Jeanie lics"> (2.3-3.5 G/DL)</content > UNK >= 1.0 <content Saint styleCode="Lisa Teresa d">AG Ratio Medical </content>1.3 Center <content styleCode="Jeanie lics"> (>= 1.0 )</content> Phosphate 2.5-4.5 <content [facility] [Mass/volume] styleCode="Lisa Teresa in Serum or d">Phosphorus Medical Plasma </content>3.2 Center MG/DL<content styleCode="Jeanie lics"> (2.5-4.5 MG/DL)</conten t> Protein 6.3-8.2 <content [facility] [Mass/volume] styleCode="Lisa Teresa in Serum or d">Total Medical Plasma Protein Center </content>6.7 G/DL<content styleCode="Jeanie lics"> (6.3-8.2 G/DL)</content > ID Date Data Source [facility].[id number] 06/28/2019 06:40:00 AM EDT [facility] Name Value Range Interpretation Description Data Sup porting Code Source(s) Document(s ) Potassium 3.5-5.3 <content Saint [Moles/volume] in styleCode="Bold"> [facility] Serum or Plasma Potassium Medical </content>4.3 Center MEQ/L<content styleCode="Italic s"> (3.5-5.3 MEQ/L)</content> Sodium 137-145 <content [facility] [Moles/volume] in styleCode="Bold"> [facility] Serum or Plasma Sodium Medical </content>138 Center MEQ/L<content styleCode="Italic s"> (137-145 MEQ/L)</content> Creatinine 0.5-1.3 Below low <content [facility] [Mass/volume] in normal styleCode="Bold"> Alfa hs Serum or Plasma Creatinine Medical </content>0.4 Center MG/DL L<content styleCode="Italic s"> (0.5-1.3 MG/DL)</content> UNK 7-17 <content Saint styleCode="Bold"> Teresa BUN </content>15 Medical MG/DL<content Center styleCode="Italic s"> (7-17 MG/DL)</content> Chloride 98-107 <content [facility] [Moles/volume] in styleCode="Bold"> Braulio banner Serum or Plasma Chloride Medical </content>106 Center MEQ/L<content styleCode="Italic s"> (98-107 MEQ/L)</content> Carbon dioxide, 22-30 <content Saint total styleCode="Bold"> Teresa [Moles/volume] in Carbon Dioxide Medical Serum or Plasma </content>24 Center MEQ/L<content styleCode="Italic s"> (22-30 MEQ/L)</content> Calcium 8.4-10. <content [facility] [Mass/volume] in 2 styleCode="Bold"> Alfa hs Serum or Plasma Calcium Medical </content>9.3 Center MG/DL<content styleCode="Italic s"> (8.4-10.2 MG/DL)</content> UNK > 60 <content [facility] styleCode="Bold"> Teresa EGFR Medical </content>187 Center GFR<content styleCode="Italic s"> (> 60 GFR)</content> Glucose 74-106 Above high <content Saint [Mass/volume] in normal styleCode="Bold"> Alfa hs Serum or Plasma Glucose Medical </content>130 Center MG/DL H<content styleCode="Italic s"> (74-106 MG/DL)</content> Aspartate 14-36 <content [facility] aminotransferase styleCode="Bold"> Alfa hs [Enzymatic Aspartate Medical activity/volume] Aminotransferase Center in Serum or Plasma (AST) </content>20 IU/L<content styleCode="Italic s"> (14-36 IU/L)</content> Alanine 7-30 <content [facility] aminotransferase styleCode="Bold"> Alfa hs [Enzymatic Alanine Medical activity/volume] Aminotransferase Center in Serum or Plasma (ALT) </content>15 IU/L<content styleCode="Italic s"> (7-30 IU/L)</content> Alkaline 38-126 <content [facility] phosphatase styleCode="Bold"> Teresa [Enzymatic Alkaline Medical activity/volume] Phosphatase (ALP) Cente r in Serum or Plasma </content>74 IU/L<content styleCode="Italic s"> (38-126 IU/L)</content> Bilirubin.total 0.2-1.3 <content [facility] [Mass/volume] in styleCode="Bold"> Alfa hs Serum or Plasma Bilirubin Total Medical </content>0.3 Center MG/DL<content styleCode="Italic s"> (0.2-1.3 MG/DL)</content> Albumin 3.5-5.0 <content [facility] [Mass/volume] in styleCode="Bold"> Alfa hs Serum or Plasma Albumin Medical </content>3.8 Center G/DL<content styleCode="Italic s"> (3.5-5.0 G/DL)</content> ID Date Data Source Urinalysis.[id number] 06/27/2019 07:58:00 PM EDT [facility] 0 Name Value Range Interpretation Description Data Sup porting Code Source(s) Document(s ) Color of Urine YELLOW <content [facility] styleCode="[facility] d">Color, Medical Urine Center </content>YELL OW <content styleCode="Jeanie lics"> (YELLOW )</content> UNK CLEAR <content Saint styleCode="[facility] d">Urine Medical Clarity Center </content>FABBY R <content styleCode="Jeanie lics"> (CLEAR )</content> Glucose NEGATIVE <content [facility] [Mass/volume] styleCode="Lisa Youngs in Urine by d">Urine Medical Test strip Glucose Center </content>NEGA TIVE MG/DL<content styleCode="Jeanie lics"> (NEGATIVE MG/DL)</conten t> UNK NEGATIVE <content Saint styleCode="Lisa Teresa d">Urine Medical Bilirubin Center </content>NEGA TIVE <content styleCode="Jeanie lics"> (NEGATIVE )</content> Hemoglobin NEGATIVE <content Saint [Presence] in styleCode="Lisa Youngs Urine by Test d">Urine Blood Medical strip </content>NEGA Center TIVE <content styleCode="Jeanie lics"> (NEGATIVE )</content> Specific 1.015-1.02 <content Saint gravity of 5 styleCode="Lisa Youngs Urine by Test d">Urine Medical strip Specific Center [place] </content>1.01 5 <content styleCode="Jeanie lics"> (1.015-1.025 )</content> Ketones NEGATIVE <content [facility] [Mass/volume] styleCode="Lisa Teresa in Urine by d">Urine Medical Test strip Ketone Center </content>NEGA TIVE MG/DL<content styleCode="Ejanie lics"> (NEGATIVE MG/DL)</conten t> pH of Urine by 4.5-8.0 <content Saint Test strip styleCode="Lisa Teresa d">Urine pH Medical </content>7.0 Center <content styleCode="Jeanie lics"> (4.5-8.0 )</content> Protein NEGATIVE <content [facility] [Mass/volume] styleCode="Lisa Youngs in Urine by d">Urine Medical Test strip Protein Center </content>NEGA TIVE MG/DL<content styleCode="Jeanie lics"> (NEGATIVE MG/DL)</conten t> Nitrite NEGATIVE <content [facility] [Presence] in styleCode="Lisa Youngs Urine by Test d">Urine Medical strip Nitrite Center </content>POSI TIVE <content styleCode="Jeanie lics"> (NEGATIVE )</content> Urobilinogen 0.2-1.0 <content [facility] [Units/volume] styleCode="Lisa Youngs in Urine by d">Urine Medical Test strip Urobilinogen Center </content>0.2 MG/DL<content styleCode="Jeanie lics"> (0.2-1.0 MG/DL)</conten t> Leukocyte NEGATIVE <content Saint esterase styleCode="Lisa Youngs [Presence] in d">Urine Medical Urine by Test Leukocyte Center strip </content>NEGA TIVE <content styleCode="Jeanie lics"> (NEGATIVE )</content> UNK 0-3 <content Saint styleCode="Lisa Teresa d">Urine Red Medical Blood Cell Center </content>3-5 HPF<content styleCode="Jeanie lics"> (0-3 HPF)</content> UNK NEGATIVE <content Saint styleCode="Lisa Teresa d">Urine Medical Bacteria Center </content>FEW HPF<content styleCode="Jeanie lics"> (NEGATIVE HPF)</content> UNK 0-3 <content Saint styleCode="Lisa Teresa d">Urine White Medical Blood Cell Center </content>10 - 20 HPF<content styleCode="Jeanie lics"> (0-3 HPF)</content> ID Date Data Source LIPID.[id number] 06/27/2019 02:59:00 PM EDT [facility] Name Value Range Interpretation Description Data Sup porting Code Source(s) Document(s ) Triglyceride < 150 <content Saint [Mass/volume] in styleCode="Lisa Teresa Serum or Plasma d">Triglycerid Medical es Center </content>87 MG/DL<content styleCode="Jeanie lics"> (< 150 MG/DL)</conten t> Cholesterol -<200 <content Saint [Mass/volume] in styleCode="Lisa Teresa Serum or Plasma d">Cholesterol Medical </content>160 Center MG/DL<content styleCode="Jeanie lics"> (-<200 MG/DL)</conten t> UNK < 100 <content Saint styleCode="Lisa Teresa d">LDL-Cholest Medical alexander Center </content>76 MG/DL<content styleCode="Jeanie lics"> (< 100 MG/DL)</conten t> UNK > 60 <content Saint styleCode="Lisa Teresa d">HDL- Medical Cholesterol Center </content>67 MG/DL<content styleCode="Jeanie lics"> (> 60 MG/DL)</conten t> ID Date Data Source HematologyRou.[id number] 06/27/2019 02:59:00 PM EDT [facility] 0400 Name Value Range Interpretation Description Data Sup porting Code Source(s) Document(s ) Hemoglobin 12.3-16. Below low normal <content [facility] [Mass/volume] in 0 styleCode="Bold Teresa Blood ">Hemoglobin Medical </content>7.6 Center G/DL L<content styleCode="Ital ics"> (12.3-16.0 G/DL)</content> Leukocytes 4.4-11.0 <content Saint [#/volume] in styleCode="Bold [facility] Blood by ">White Blood Medical Automated count Cell Count Center </content>9.52 KCUMM<content styleCode="Ital ics"> (4.4-11.0 KCUMM)</content > Erythrocytes 4.0-5.1 Below low normal <content Saint [#/volume] in styleCode="Bold Teresa Blood by ">Red Blood Medical Automated count Cell Count Center </content>3.55 MCUMM L<content styleCode="Ital ics"> (4.0-5.1 MCUMM)</content > Erythrocyte mean 26.0-34. Below low normal <content [facility] corpuscular 0 styleCode="Bold Teresa hemoglobin ">Mean Medical [Entitic mass] Corposcular Center by Automated Hemoglobin count </content>21.4 PG L<content styleCode="Ital ics"> (26.0-34.0 PG)</content> Hematocrit 36.0-46. Below low normal <content Saint [Volume 0 styleCode="Bold Teresa Fraction] of ">Hematocrit Medical Blood by </content>26.0 Center Automated count % L<content styleCode="Ital ics"> (36.0-46.0 %)</content> Erythrocyte mean 80.0-100 <content [facility] corpuscular .0 styleCode="Bold Teresa volume [Entitic ">Mean Medical volume] by Corpuscular Center Automated count Volume </content>73.2 FL<content styleCode="Ital ics"> (80.0-100.0 FL)</content> Erythrocyte mean 32.0-37. Below low normal <content [facility] corpuscular 0 styleCode="Bold Teresa hemoglobin ">Mean Corpus. Medical concentration Hgb Center [Mass/volume] by Concentration Automated count (MCHC) </content>29.2 G/DL L<content styleCode="Ital ics"> (32.0-37.0 G/DL)</content> Erythrocyte 11.5-14. Above high <content [facility] distribution 5 normal styleCode="Bold Teresa width [Ratio] by ">Red Cell Medical Automated count Distribution Center Width </content>22.4 % H<content styleCode="Ital ics"> (11.5-14.5 %)</content> Platelets 130-400 <content Saint [#/volume] in styleCode="Bold Teresa Blood by ">Platelet Medical Automated count Count Center </content>326 KCUMM<content styleCode="Ital ics"> (130-400 KCUMM)</content > Platelet mean 8.0-11.0 <content Saint volume [Entitic styleCode="Bold Teresa volume] in Blood ">Mean Platelet Medical by Automated Volume Center count </content>9.3 FL<content styleCode="Ital ics"> (8.0-11.0 FL)</content> UNK 0 Above high <content Saint normal styleCode="Bold Teresa ">Nucleated Red Medical Blood Cell Center </content>0.2 /100 H<content styleCode="Ital ics"> (0 /100)</content> UNK 0.0 Above high <content Saint normal styleCode="Bold Teresa ">Nucleated Red Medical Blood Cell Center Count </content>0.02 KCUMM H<content styleCode="Ital ics"> (0.0 KCUMM)</content > ID Date Data Source GFR(Creatinine).[id number] 06/27/2019 02:59:00 PM EDT [facility] 0-0400 Name Value Range Interpretation Code Description Data Nazanin rce(s) Supporting Document(s ) UNK > 60 <content [facility] styleCode="Bold"> Medical Cent er EGFR </content>187 GFR<content styleCode="Italic s"> (> 60 GFR)</content> ID Date Data Source Coagulation 06/27/2019 02:59:00 PM [facility] ical Center Rout.[id number] EDT Name Value Range Interpretation Description Data Sup porting Code Source(s) Document(s ) UNK 9.0-13.0 <content Saint styleCode="Bold" Teresa >Protime Medical </content>11.5 Center SEC<content styleCode="Itali cs"> (9.0-13.0 SEC)</content> INR in 0.80-1.2 <content Saint Platelet poor 0 styleCode="Bold" Teresa plasma by >INR Medical Coagulation </content>1.04 Center assay #<content styleCode="Itali cs"> (0.80-1.20 #)</content> UNK < 500 Above upper panic <content Saint limits styleCode="Bold" Teresa >D-Dimer Medical </content><blaine Center nt styleCode="Bold" >788 ngFEU HH</content><con tent styleCode="Itali cs"> (< 500 ngFEU)</content> aPTT in 25.1-36. <content [facility] Platelet poor 5 styleCode="Bold" Teresa plasma by >Partial Medical Coagulation Thromboplastin Center assay Time </content>26.1 SEC<content styleCode="Itali cs"> (25.1-36.5 SEC)</content> ID Date Data Source [facility]AN[facility]ED[facility].[id number] 06/27/2019 02:59:00 PM EDT [facility] -0400 Name Value Range Interpretation Description Data Sup porting Code Source(s) Document(s ) Natriuretic < 125 <content Saint peptide.B styleCode="Lisa Teresa prohormone d">NT Pro BNP Medical N-Terminal </content>33.2 Center [Mass/volume] PG/ML<content in Serum or styleCode="Jeanie Plasma lics"> (< 125 PG/ML)</conten t> ID Date Data Source [employer].[id number] 06/27/2019 02:59:00 PM EDT [facility] -0400 Name Value Range Interpretation Description Data Sup porting Code Source(s) Document(s ) Troponin < 0.034 <content Saint I.cardiac styleCode="Bold Teresa [Mass/volume ">Troponin I Medical ] in Serum </content>< Center or Plasma 0.012 NG/ML<content styleCode="Ital ics"> (< 0.034 NG/ML)</content > ID Date Data Source BMP.[id number] 06/27/2019 02:59:00 PM EDT [facility] Name Value Range Interpretation Description Data Sup porting Code Source(s) Document(s ) Sodium 137-145 <content Saint [Moles/volume] styleCode="Lisa Teresa in Serum or d">Sodium Medical Plasma </content>138 Center MEQ/L<content styleCode="Jeanie lics"> (137-145 MEQ/L)</conten t> Carbon 22-30 <content Saint dioxide, total styleCode="Lisa Teresa [Moles/volume] d">Carbon Medical in Serum or Dioxide Center Plasma </content>25 MEQ/L<content styleCode="Jeanie lics"> (22-30 MEQ/L)</conten t> Chloride 98-107 Above high normal <content Saint [Moles/volume] styleCode="Lisa Teresa in Serum or d">Chloride Medical Plasma </content>108 Center MEQ/L H<content styleCode="Jeanie lics"> (98-107 MEQ/L)</conten t> Potassium 3.5-5.3 <content Saint [Moles/volume] styleCode="Lisa Teresa in Serum or d">Potassium Medical Plasma </content>4.3 Center MEQ/L<content styleCode="Jeanie lics"> (3.5-5.3 MEQ/L)</conten t> Glucose 74-106 <content Saint [Mass/volume] styleCode="Lisa Teresa in Serum or d">Glucose Medical Plasma </content>104 Center MG/DL<content styleCode="Jeanie lics"> (74-106 MG/DL)</conten t> UNK 7-17 <content Saint styleCode="Lisa Youngs d">BUN Medical </content>15 Center MG/DL<content styleCode="Jeanie lics"> (7-17 MG/DL)</conten t> Calcium 8.4-10.2 <content Saint [Mass/volume] styleCode="Lisa Teresa in Serum or d">Calcium Medical Plasma </content>9.0 Center MG/DL<content styleCode="Jeanie lics"> (8.4-10.2 MG/DL)</conten t> Creatinine 0.5-1.3 Below low normal <content Saint [Mass/volume] styleCode="Lisa Teresa in Serum or d">Creatinine Medical Plasma </content>0.4 Center MG/DL L<content styleCode="Jeanie lics"> (0.5-1.3 MG/DL)</conten t> UNK > 60 <content Saint styleCode="Lisa Teresa d">EGFR Medical </content>187 Center GFR<content styleCode="Jeanie lics"> (> 60 GFR)</content> ID Date Data Source HematologyRou.[id number] 06/20/2019 05:40:00 AM EDT [facility]manuel nt [facility] 0400 Name Value Range Interpretation Description Data Sup porting Code Source(s) Document(s ) Leukocytes 4.4-11.0 <content Saint [#/volume] in styleCode="Bold Teresa Blood by ">White Blood Medical Automated count Cell Count Center </content>5.11 KCUMM<content styleCode="Ital ics"> (4.4-11.0 KCUMM)</content > Erythrocytes 4.0-5.1 Below low normal <content Saint [#/volume] in styleCode="Bold Teresa Blood by ">Red Blood Medical Automated count Cell Count Center </content>3.47 MCUMM L<content styleCode="Ital ics"> (4.0-5.1 MCUMM)</content > Hematocrit 36.0-46. Below low normal <content Saint [Volume 0 styleCode="Bold Teresa Fraction] of ">Hematocrit Medical Blood by </content>24.4 Center Automated count % L<content styleCode="Ital ics"> (36.0-46.0 %)</content> Hemoglobin 12.3-16. Below low normal <content Saint [Mass/volume] in 0 styleCode="Bold Teresa Blood ">Hemoglobin Medical </content>7.0 Center G/DL L<content styleCode="Ital ics"> (12.3-16.0 G/DL)</content> Erythrocyte mean 80.0-100 <content Saint corpuscular .0 styleCode="Bold Teresa volume [Entitic ">Mean Medical volume] by Corpuscular Center Automated count Volume </content>70.3 FL<content styleCode="Ital ics"> (80.0-100.0 FL)</content> Erythrocyte mean 26.0-34. Below low normal <content Saint corpuscular 0 styleCode="Bold Teresa hemoglobin ">Mean Medical [Entitic mass] Corposcular Center by Automated Hemoglobin count </content>20.2 PG L<content styleCode="Ital ics"> (26.0-34.0 PG)</content> Erythrocyte mean 32.0-37. Below low normal <content Saint corpuscular 0 styleCode="Bold Teresa hemoglobin ">Mean Corpus. Medical concentration Hgb Center [Mass/volume] by Concentration Automated count (MCHC) </content>28.7 G/DL L<content styleCode="Ital ics"> (32.0-37.0 G/DL)</content> Platelets 130-400 <content Saint [#/volume] in styleCode="Bold Teresa Blood by ">Platelet Medical Automated count Count Center </content>303 KCUMM<content styleCode="Ital ics"> (130-400 KCUMM)</content > Erythrocyte 11.5-14. Above high <content Saint distribution 5 normal styleCode="Bold Teresa width [Ratio] by ">Red Cell Medical Automated count Distribution Center Width </content>18.1 % H<content styleCode="Ital ics"> (11.5-14.5 %)</content> Platelet mean 8.0-11.0 <content Saint volume [Entitic styleCode="Bold Teresa volume] in Blood ">Mean Platelet Medical by Automated Volume Center count </content>9.1 FL<content styleCode="Ital ics"> (8.0-11.0 FL)</content> Lymphocytes 24.0-44. Below low normal <content Saint [#/volume] in 0 styleCode="Bold Teresa Blood by ">Lymphocyte Medical Automated count </content>21.7 Center % L<content styleCode="Ital ics"> (24.0-44.0 %)</content> UNK 1.6-7.3 <content Saint styleCode="Bold Teresa ">Neutrophil Medical Count Center </content>3.65 KCUMM<content styleCode="Ital ics"> (1.6-7.3 KCUMM)</content > Neutrophils 36-66 Above high <content Saint [#/volume] in normal styleCode="Bold Teresa Blood by ">Neutrophil Medical Automated count </content>71.4 Center % H<content styleCode="Ital ics"> (36-66 %)</content> UNK 0.2-0.9 <content Saint styleCode="Bold Teresa ">Monocyte Medical Count Center </content>0.30 KCUMM<content styleCode="Ital ics"> (0.2-0.9 KCUMM)</content > Monocytes 3.0-10.0 <content Saint [#/volume] in styleCode="Bold Teresa Blood by ">Monocyte Medical Automated count </content>5.9 Center %<content styleCode="Ital ics"> (3.0-10.0 %)</content> UNK 1.0-4.8 <content [facility] styleCode="Bold Teresa ">Lymphocyte Medical Count Center </content>1.11 KCUMM<content styleCode="Ital ics"> (1.0-4.8 KCUMM)</content > Eosinophils 0-5.0 <content Saint [#/volume] in styleCode="Bold Teresa Blood by ">Eosinophil Medical Automated count </content>0.0 Center %<content styleCode="Ital ics"> (0-5.0 %)</content> Basophils 0.0-1.0 <content Saint [#/volume] in styleCode="Bold Teresa Blood by ">Basophil Medical Automated count </content>0.2 Center %<content styleCode="Ital ics"> (0.0-1.0 %)</content> UNK 0.0-0.6 <content [facility] styleCode="Bold Teresa ">Eosinophil Medical Count Center </content>0.00 KCUMM<content styleCode="Ital ics"> (0.0-0.6 KCUMM)</content > UNK 0.0 Above high <content Saint normal styleCode="Bold Teresa ">Nucleated Red Medical Blood Cell Center Count </content>0.07 KCUMM H<content styleCode="Ital ics"> (0.0 KCUMM)</content > UNK 0.0-0.3 <content Saint styleCode="Bold Teresa ">Basophil Medical Count Center </content>0.01 KCUMM<content styleCode="Ital ics"> (0.0-0.3 KCUMM)</content > UNK 0 Above high <content Saint normal styleCode="Bold Teresa ">Nucleated Red Medical Blood Cell Center </content>1.4 /100 H<content styleCode="Ital ics"> (0 /100)</content> UNK < 1 <content Saint styleCode="Bold Teresa ">Immature Medical Granulocyte Center Ratio </content>0.8 %<content styleCode="Ital ics"> (< 1 %)</content> UNK 0-0.1 <content [facility] styleCode="Bold Teresa ">Immature Medical Granulocyte Center Count </content>0.04 KCUMM<content styleCode="Ital ics"> (0-0.1 KCUMM)</content > ID Date Data Source GFR(Creatinine).[id number] 06/20/2019 05:40:00 AM EDT [facility] 0-0400 Name Value Range Interpretation Code Description Data Nazanin rce(s) Supporting Document(s ) UNK > 60 <content Teresa styleCode="Bold"> Medical Cent er EGFR </content>187 GFR<content styleCode="Italic s"> (> 60 GFR)</content> ID Date Data Source CHMROUTINECCDA.[id number] 06/20/2019 05:40:00 AM EDT [facility] -0400 Name Value Range Interpretation Description Data Sup porting Code Source(s) Document(s ) Phosphate 2.5-4.5 <content Saint [Mass/volume] styleCode="Lisa Teresa in Serum or d">Phosphorus Medical Plasma </content>2.9 Center MG/DL<content styleCode="Jeanie lics"> (2.5-4.5 MG/DL)</conten t> Magnesium 1.6-2.3 <content Saint [Mass/volume] styleCode="Lisa Teresa in Serum or d">Magnesium Medical Plasma </content>2.1 Center MG/DL<content styleCode="Jeanie lics"> (1.6-2.3 MG/DL)</conten t> ID Date Data Source [id number] 06/20/2019 05:40:00 AM EDT [facility] Name Value Range Interpretation Description Data Sup porting Code Source(s) Document(s ) Sodium 137-145 <content Saint [Moles/volume] styleCode="Lisa Teresa in Serum or d">Sodium Medical Plasma </content>141 Center MEQ/L<content styleCode="Jeanie lics"> (137-145 MEQ/L)</conten t> Potassium 3.5-5.3 <content Saint [Moles/volume] styleCode="Lisa Teresa in Serum or d">Potassium Medical Plasma </content>4.0 Center MEQ/L<content styleCode="Jeanie lics"> (3.5-5.3 MEQ/L)</conten t> Chloride 98-107 <content Saint [Moles/volume] styleCode="Lisa Teresa in Serum or d">Chloride Medical Plasma </content>107 Center MEQ/L<content styleCode="Jeanie lics"> (98-107 MEQ/L)</conten t> Glucose 74-106 Above high normal <content Saint [Mass/volume] styleCode="Lisa Teresa in Serum or d">Glucose Medical Plasma </content>127 Center MG/DL H<content styleCode="Jeanie lics"> (74-106 MG/DL)</conten t> Carbon 22-30 <content Saint dioxide, total styleCode="Lisa Teresa [Moles/volume] d">Carbon Medical in Serum or Dioxide Center Plasma </content>24 MEQ/L<content styleCode="Jeanie lics"> (22-30 MEQ/L)</conten t> Creatinine 0.5-1.3 Below low normal <content Saint [Mass/volume] styleCode="Lisa Teresa in Serum or d">Creatinine Medical Plasma </content>0.4 Center MG/DL L<content styleCode="Jeanie lics"> (0.5-1.3 MG/DL)</conten t> UNK 7-17 <content Saint styleCode="Lisa Teresa d">BUN Medical </content>11 Center MG/DL<content styleCode="Jeanie lics"> (7-17 MG/DL)</conten t> Calcium 8.4-10.2 <content Saint [Mass/volume] styleCode="Lisa Teresa in Serum or d">Calcium Medical Plasma </content>9.6 Center MG/DL<content styleCode="Jeanie lics"> (8.4-10.2 MG/DL)</conten t> UNK > 60 <content Saint styleCode="Lisa Teresa d">EGFR Medical </content>187 Center GFR<content styleCode="Jeanie lics"> (> 60 GFR)</content> ID Date Data Source [facility].[id number] 06/19/2019 08:30:00 PM EDT [facility] -0400 Name Value Range Interpretation Description Data Sup porting Code Source(s) Document(s ) Iron 37-170 Below low normal <content Saint [Mass/volume styleCode="Bold Teresa ] in Serum ">Iron Medical or Plasma </content>18 Center UG/DL L<content styleCode="Ital ics"> (37-170 UG/DL)</content > Ferritin 11-264 Below low normal <content Saint [Mass/volume styleCode="Bold Teresa ] in Serum ">Ferritin Medical or Plasma </content>4.38 Center NG/ML L<content styleCode="Ital ics"> (11-264 NG/ML)</content > UNK 265-497 Above high normal <content Saint styleCode="Bold Teresa ">TIBC Medical </content>563 Center UG/DL H<content styleCode="Ital ics"> (265-497 UG/DL)</content > ID Date Data Source Blood[employer].[id number] 06/19/2019 11:25:00 AM EDT [facility] Name Value Range Interpretation Code Description Data Nazanin rce(s) Supporting Document(s ) UNK <content [facility] styleCode="Bold" Medical Cente r >Blood Type </content>GROUP A (Reference Range: not available)
UNK NEGATIVE <content [facility] styleCode="Bold" Medical Cente r >Antibody Screen </content>NEGATI VE <content styleCode="Itali cs"> (NEGATIVE )</content> UNK <content [facility] styleCode="Bold" Medical Cente r >RH Type </content>POSITI VE (Reference Range: not available)
UNK <content [facility] styleCode="Bold" Medical Cente r >Cross-Match for Packed Cells </content>[id number] COMP O NEG (Reference Range: not available)
ID Date Data Source HematologyRou.[id number] 06/19/2019 10:43:00 AM EDT [facility] 0400 Name Value Range Interpretation Description Data Sup porting Code Source(s) Document(s ) Leukocytes 4.4-11.0 <content Saint [#/volume] in styleCode="Bold Teresa Blood by ">White Blood Medical Automated count Cell Count Center </content>5.94 KCUMM<content styleCode="Ital ics"> (4.4-11.0 KCUMM)</content > Erythrocytes 4.0-5.1 Below low normal <content Saint [#/volume] in styleCode="Bold Teresa Blood by ">Red Blood Medical Automated count Cell Count Center </content>3.34 MCUMM L<content styleCode="Ital ics"> (4.0-5.1 MCUMM)</content > Erythrocyte mean 80.0-100 <content Saint corpuscular .0 styleCode="Bold Teresa volume [Entitic ">Mean Medical volume] by Corpuscular Center Automated count Volume </content>71.3 FL<content styleCode="Ital ics"> (80.0-100.0 FL)</content> Hemoglobin 12.3-16. Below lower <content Saint [Mass/volume] in 0 panic limits styleCode="Bold Braulio phs Blood ">Hemoglobin Medical </content><cont Center ent styleCode="Bold ">6.9 G/DL LL</content><co ntent styleCode="Ital ics"> (12.3-16.0 G/DL)</content> Hematocrit 36.0-46. Below low normal <content Saint [Volume 0 styleCode="Bold Teresa Fraction] of ">Hematocrit Medical Blood by </content>23.8 Center Automated count % L<content styleCode="Ital ics"> (36.0-46.0 %)</content> Erythrocyte 11.5-14. Above high <content [facility] distribution 5 normal styleCode="Bold Teresa width [Ratio] by ">Red Cell Medical Automated count Distribution Center Width </content>18.1 % H<content styleCode="Ital ics"> (11.5-14.5 %)</content> Erythrocyte mean 32.0-37. Below low normal <content [facility] corpuscular 0 styleCode="Bold Teresa hemoglobin ">Mean Corpus. Medical concentration Hgb Center [Mass/volume] by Concentration Automated count (MCHC) </content>29.0 G/DL L<content styleCode="Ital ics"> (32.0-37.0 G/DL)</content> Erythrocyte mean 26.0-34. Below low normal <content Saint corpuscular 0 styleCode="Bold Teresa hemoglobin ">Mean Medical [Entitic mass] Corposcular Center by Automated Hemoglobin count </content>20.7 PG L<content styleCode="Ital ics"> (26.0-34.0 PG)</content> Platelet mean 8.0-11.0 <content Saint volume [Entitic styleCode="Bold Teresa volume] in Blood ">Mean Platelet Medical by Automated Volume Center count </content>8.7 FL<content styleCode="Ital ics"> (8.0-11.0 FL)</content> UNK 0 Above high <content [facility] normal styleCode="Bold Teresa ">Nucleated Red Medical Blood Cell Center </content>0.3 /100 H<content styleCode="Ital ics"> (0 /100)</content> Platelets 130-400 <content Saint [#/volume] in styleCode="Bold Teresa Blood by ">Platelet Medical Automated count Count Center </content>266 KCUMM<content styleCode="Ital ics"> (130-400 KCUMM)</content > UNK NORMAL <content Saint styleCode="Bold Teresa ">Polychromasia Medical </content>[facility] T <content styleCode="Ital ics"> (NORMAL )</content> UNK NORMAL <content Saint styleCode="Bold Teresa ">Spherocyte Medical </content>[facility] Center T <content styleCode="Ital ics"> (NORMAL )</content> UNK 0.0 Above high <content Saint normal styleCode="Bold Teresa ">Nucleated Red Medical Blood Cell Center Count </content>0.02 KCUMM H<content styleCode="Ital ics"> (0.0 KCUMM)</content > UNK NORMAL <content Saint styleCode="Bold Teresa ">RBC Medical Morphology Center </content>ABNOR MAL <content styleCode="Ital ics"> (NORMAL )</content> UNK NORMAL <content [facility] styleCode="Bold Teresa ">Microcyte Medical </content>[facility] T <content styleCode="Ital ics"> (NORMAL )</content> ID Date Data Source Coagulation 06/19/2019 10:43:00 AM [facility] ical Center Rout.[id number] EDT Name Value Range Interpretation Code Description Data Nazanin rce(s) Supporting Document(s ) UNK < 500 Above upper panic <content [facility] limits styleCode="Bold"> Medical Cent er D-Dimer </content><conten t styleCode="Bold"> 1670 ngFEU HH</content><cont ent styleCode="Italic s"> (< 500 ngFEU)</content> ID Date Data Source CardiacMarkers.[id number] 06/19/2019 10:43:00 AM EDT [facility] -0400 Name Value Range Interpretation Description Data Sup porting Code Source(s) Document(s ) Troponin < 0.034 <content Saint I.cardiac styleCode="Bold Teresa [Mass/volume ">Troponin I Medical ] in Serum </content>< Center or Plasma 0.012 NG/ML<content styleCode="Ital ics"> (< 0.034 NG/ML)</content > Procedure Social History Code Duration Value Status Description Data Source(s ) Smoking 06/13/2020 Denies Ever completed Denies Ever Smoked [facility] Teresa 05:12:00 PM EDT Smoked Medical C enter Smoking 06/11/2020 Denies Ever completed Denies Ever Smoked [facility] 07:49:00 PM EDT Smoked Medical C enter Smoking 06/11/2020 Denies Ever completed Denies Ever Smoked [facility] Teresa 06:20:00 PM EDT Smoked Medical C enter Smoking 06/11/2020 Denies Ever completed Denies Ever Smoked [facility] Teresa 04:09:00 PM EDT Smoked Medical C enter Smoking 06/11/2020 Denies Ever completed Denies Ever Smoked Saint Etresa 11:48:00 AM EDT Smoked Medical C enter Smoking 06/11/2020 Denies Ever completed Denies Ever Smoked [facility] Teresa 11:17:00 AM EDT Smoked Medical C enter Smoking 05/16/2020 Denies Ever completed Denies Ever Smoked [facility] Teresa 11:50:00 AM EDT Smoked Medical C enter Smoking 05/16/2020 Denies Ever completed Denies Ever Smoked [facility] 09:30:00 AM EDT Smoked Medical C enter Smoking 05/16/2020 Denies Ever completed Denies Ever Smoked [facility] 08:59:00 AM EDT Smoked Medical C enter Smoking 11/20/2019 Denies Ever completed Denies Ever Smoked [facility] 03:43:00 PM EST Smoked Medical C enter Smoking 11/20/2019 Denies Ever completed Denies Ever Smoked [facility] 02:26:00 PM EST Smoked Medical C enter Smoking 11/20/2019 Denies Ever completed Denies Ever Smoked [facility] 02:15:00 PM EST Smoked Medical C enter Smoking 10/31/2019 Denies Ever completed Denies Ever Smoked [facility] 08:03:00 AM EST Smoked Medical C enter Smoking 10/31/2019 Denies Ever completed Denies Ever Smoked [facility] 07:47:00 AM EST Smoked Medical C enter Smoking 06/29/2019 Denies Ever completed Denies Ever Smoked [facility] 07:12:00 PM EDT Smoked Medical C enter Smoking 06/27/2019 Denies Ever completed Denies Ever Smoked [facility] 08:29:00 PM EDT Smoked Medical C enter Smoking 06/27/2019 Denies Ever completed Denies Ever Smoked [facility] 06:00:00 PM EDT Smoked Medical C enter Smoking 06/27/2019 Denies Ever completed Denies Ever Smoked [facility] 12:21:00 PM EDT Smoked Medical C enter Smoking 06/27/2019 Denies Ever completed Denies Ever Smoked [facility] 12:15:00 PM EDT Smoked Medical C enter Smoking 06/27/2019 Denies Ever completed Denies Ever Smoked [facility] 12:01:00 PM EDT Smoked Medical C enter Smoking 06/19/2019 Denies Ever completed Denies Ever Smoked [facility] 08:44:00 PM EDT Smoked Medical C enter Smoking 06/19/2019 Denies Ever completed Denies Ever Smoked [facility] 05:51:00 PM EDT Smoked Medical C enter Smoking 06/19/2019 Denies Ever completed Denies Ever Smoked [facility] 09:58:00 AM EDT Smoked Medical C enter Smoking 06/19/2019 Denies Ever completed Denies Ever Smoked [facility] 09:36:00 AM EDT Smoked Medical C enter Smoking 06/19/2019 Denies Ever completed Denies Ever Smoked [facility] Teresa 09:20:00 AM EDT Smoked Medical C enter Vital Signs ID Date Data Source UNK Name Value Range Interpretation Code Description Data Source(s) Body temperature 36.275818 36.496869 [facility] Respiratory rate 18 /min 18 /min [facility] Heart rate 91 /min 91 /min [facility] Diastolic blood 88 mm[Hg] 88 mm[Hg] [facility] Systolic blood 151 mm[Hg] 151 mm[Hg] [facility] Body temperature 36.407744 36.741541 Nguyen [facility] Respiratory rate 20 /min 20 /min [facility] Heart rate 92 /min 92 /min [facility] Diastolic blood 82 mm[Hg] 82 mm[Hg] [facility] Systolic blood 149 mm[Hg] 149 mm[Hg] [facility] Body temperature 36.146708 36.250406 Nguyen [facility] Respiratory rate 18 /min 18 /min [facility] Heart rate 97 /min 97 /min [facility] Diastolic blood 82 mm[Hg] 82 mm[Hg] [facility] Systolic blood 136 mm[Hg] 136 mm[Hg] [facility] Body weight 107.595123 107.802436 kg [facility] Measured kg Medical Center Body height 147.821357 147.387263 cm [facility] Body mass index 49.62 kg/m2 49.62 kg/m2 [facility] (BMI) [Ratio] Medical [facility] Body temperature 37.337087 37.962478 Nguyen [facility] Respiratory rate 18 /min 18 /min [facility] Heart rate 97 /min 97 /min [facility] Diastolic blood 84 mm[Hg] 84 mm[Hg] [facility] Systolic blood 137 mm[Hg] 137 mm[Hg] [facility] Oxygen saturation 98 % 98 % [facility] Arterial blood [facility] by Pulse oximetry Body temperature 37.677822 37.418961 Nguyen [facility] Respiratory rate 18 /min 18 /min [facility] Heart rate 91 /min 91 /min [facility] Diastolic blood 92 mm[Hg] 92 mm[Hg] [facility] Systolic blood 133 mm[Hg] 133 mm[Hg] [facility] Oxygen saturation 96 % 96 % [facility] Arterial blood Medical Center by Pulse oximetry Oxygen saturation 98 % 98 % [facility] Arterial blood Medical Center by Pulse oximetry Body temperature 36.060644 36.751559 Nguyen [facility] Respiratory rate 20 /min 20 /min [facility] Heart rate 107 /min 107 /min [facility] Diastolic blood 85 mm[Hg] 85 mm[Hg] [facility] Systolic blood 159 mm[Hg] 159 mm[Hg] [facility] Body weight 107.642283 107.522756 kg [facility] Measured kg Medical Center Body height 147.638760 147.522347 cm [facility] Medical Center Body mass index 49.62 kg/m2 49.62 kg/m2 [facility] (BMI) [Ratio] [facility] Body temperature 36.980469 36.536969 [facility] Respiratory rate 20 /min 20 /min [facility] Heart rate 118 /min 118 /min [facility] Diastolic blood 93 mm[Hg] 93 mm[Hg] [facility] Systolic blood 151 mm[Hg] 151 mm[Hg] [facility] Body weight 107.419945 107.129895 kg [facility] Measured kg Medical Center Body height 147.770108 147.780897 cm [facility] Medical [facility] Body mass index 49.62 kg/m2 49.62 kg/m2 [facility] (BMI) [Ratio] [facility] Body temperature 36.052530 36.360785 [facility] Respiratory rate 20 /min 20 /min [facility] Heart rate 98 /min 98 /min [facility] Diastolic blood 98 mm[Hg] 98 mm[Hg] [facility] Systolic blood 153 mm[Hg] 153 mm[Hg] [facility] Oxygen saturation 99 % 99 % [facility] in Arterial blood Medical Center by Pulse oximetry Body temperature 36.816144 36.489105 [facility] Respiratory rate 18 /min 18 /min [facility] Heart rate 104 /min 104 /min [facility] Diastolic blood 80 mm[Hg] 80 mm[Hg] [facility] Systolic blood 156 mm[Hg] 156 mm[Hg] [facility] Oxygen saturation 98 % 98 % [facility] in Arterial blood Medical Center by Pulse oximetry Body temperature 36.261060 36.369804 [facility] Respiratory rate 18 /min 18 /min [facility] Heart rate 102 /min 102 /min [facility] Diastolic blood 84 mm[Hg] 84 mm[Hg] [facility] Systolic blood 153 mm[Hg] 153 mm[Hg] [facility] Oxygen saturation 99 % 99 % [facility] in Arterial blood Medical Center by Pulse oximetry Oxygen saturation 97 % 97 % [facility] in Arterial blood Medical Center by Pulse oximetry Oxygen saturation 99 % 99 % [facility] in Arterial blood Medical Center by Pulse oximetry Body weight 104.736652 104.299155 kg [facility] Measured kg [facility] Body height 147.912708 147.383190 cm [facility] Body mass index 48.0 kg/m2 48.0 kg/m2 [facility] (BMI) [Ratio] [facility] Diastolic blood 92 mm[Hg] 92 mm[Hg] [facility] pressure Medical Center Systolic blood 150 mm[Hg] 150 mm[Hg] [facility] Body temperature 36.060591 36.859808 [facility] Respiratory rate 18 /min 18 /min [facility] Oxygen saturation 100 % 100 % [facility] in Arterial blood [facility] by Pulse oximetry Heart rate 88 /min 88 /min [facility] Diastolic blood 112 mm[Hg] 112 mm[Hg] [facility] Systolic blood 161 mm[Hg] 161 mm[Hg] [facility] Body temperature 36.014790 36.762586 [facility] Respiratory rate 18 /min 18 /min [facility] Oxygen saturation 100 % 100 % [facility] in Arterial blood [facility] by Pulse oximetry Heart rate 114 /min 114 /min [facility] Diastolic blood 91 mm[Hg] 91 mm[Hg] [facility] Systolic blood 147 mm[Hg] 147 mm[Hg] [facility] Body temperature 36.827923 36.975937 [facility] Respiratory rate 18 /min 18 /min [facility] Oxygen saturation 97 % 97 % [facility] blood [facility] by Pulse oximetry Heart rate 82 /min 82 /min [facility] Diastolic blood 76 mm[Hg] 76 mm[Hg] [facility] Systolic blood 146 mm[Hg] 146 mm[Hg] [facility] Body temperature 36.520762 36.067368 [facility] Respiratory rate 18 /min 18 /min [facility] Oxygen saturation 100 % 100 % [facility] in Arterial blood [facility] by Pulse oximetry Heart rate 93 /min 93 /min [facility] Diastolic blood 98 mm[Hg] 98 mm[Hg] [facility] pressure Medical Center Systolic blood 159 mm[Hg] 159 mm[Hg] [facility] Body temperature 36.971334 36.166428 [facility] Respiratory rate 18 /min 18 /min [facility] Oxygen saturation 100 % 100 % [facility] in Arterial blood [facility] Center by Pulse oximetry Heart rate 91 /min 91 /min [facility] Diastolic blood 77 mm[Hg] 77 mm[Hg] [facility] pressure Medical Center Systolic blood 136 mm[Hg] 136 mm[Hg] [facility] Body temperature 36.694772 36.146760 [facility] Respiratory rate 18 /min 18 /min [facility] Oxygen saturation 98 % 98 % [facility] in Arterial blood [facility] Center by Pulse oximetry Heart rate 104 /min 104 /min [facility] Diastolic blood 92 mm[Hg] 92 mm[Hg] [facility] Systolic blood 137 mm[Hg] 137 mm[Hg] [facility] Oxygen saturation 98 % 98 % [facility] in Arterial blood [facility] Center by Pulse oximetry Heart rate 96 /min 96 /min [facility] Diastolic blood 93 mm[Hg] 93 mm[Hg] [facility] Systolic blood 137 mm[Hg] 137 mm[Hg] [facility] Body temperature 36.150756 36.770761 [facility] Respiratory rate 20 /min 20 /min [facility] Body weight 100.328521 100.642740 kg [facility] Measured kg Medical Center Body temperature 36.833624 36.654398 [facility] Respiratory rate 18 /min 18 /min [facility] Oxygen saturation 97 % 97 % [facility] in Arterial blood [facility] Center by Pulse oximetry Heart rate 110 /min 110 /min [facility] Body height 149.781219 149.149440 cm [facility] Medical [facility] Diastolic blood 104 mm[Hg] 104 mm[Hg] [facility] Systolic blood 178 mm[Hg] 178 mm[Hg] [facility] Body mass index 44.5 kg/m2 44.5 kg/m2 [facility] (BMI) [Ratio] Medical [facility] ter Body temperature 36.328913 36.385287 [facility] Respiratory rate 20 /min 20 /min [facility] Oxygen saturation 94 % 94 % [facility] in Arterial blood Medical Center by Pulse oximetry Heart rate 115 /min 115 /min [facility] Diastolic blood 105 mm[Hg] 105 mm[Hg] [facility] Systolic blood 148 mm[Hg] 148 mm[Hg] [facility] Body temperature 37.498028 37.773700 [facility] Respiratory rate 18 /min 18 /min [facility] Heart rate 98 /min 98 /min [facility] Diastolic blood 89 mm[Hg] 89 mm[Hg] [facility] Systolic blood 149 mm[Hg] 149 mm[Hg] [facility] Body temperature 36.644169 36.026304 [facility] Respiratory rate 20 /min 20 /min [facility] Heart rate 107 /min 107 /min [facility] Diastolic blood 92 mm[Hg] 92 mm[Hg] [facility] Systolic blood 146 mm[Hg] 146 mm[Hg] [facility] Body temperature 36.831693 36.015739 [facility] Respiratory rate 18 /min 18 /min [facility] Oxygen saturation 97 % 97 % [facility] blood [facility] by Pulse oximetry Heart rate 105 /min 105 /min [facility] Diastolic blood 98 mm[Hg] 98 mm[Hg] [facility] Systolic blood 145 mm[Hg] 145 mm[Hg] [facility] Body temperature 36.528913 36.303490 [facility] Respiratory rate 18 /min 18 /min [facility] Heart rate 111 /min 111 /min [facility] Diastolic blood 60 mm[Hg] 60 mm[Hg] [facility] Systolic blood 125 mm[Hg] 125 mm[Hg] [facility] Body weight 102.408655 102.111222 kg [facility] kg Medical Center Oxygen saturation 97 % 97 % [facility] Arterial blood [facility] by Pulse oximetry Body height 147.486498 147.581368 cm [facility] Body mass index 47.44 kg/m2 47.44 kg/m2 [facility] (BMI) [Ratio] Medical [facility] Body temperature 36.340621 36.503772 [facility] Respiratory rate 20 /min 20 /min [facility] Heart rate 98 /min 98 /min [facility] Diastolic blood 98 mm[Hg] 98 mm[Hg] [facility] Systolic blood 153 mm[Hg] 153 mm[Hg] [facility] Heart rate 90 /min 90 /min [facility] Oxygen saturation 97 % 97 % [facility] Arterial blood [facility] by Pulse oximetry Body temperature 36.755714 36.507603 [facility] Respiratory rate 20 /min 20 /min [facility] Heart rate 122 /min 122 /min [facility] Diastolic blood 98 mm[Hg] 98 mm[Hg] [facility] Systolic blood 148 mm[Hg] 148 mm[Hg] [facility] Body weight 102.644952 102.075487 kg [facility] Body temperature 36.213345 36.715180 [facility] Respiratory rate 19 /min 19 /min [facility] Heart rate 97 /min 97 /min [facility] Diastolic blood 88 mm[Hg] 88 mm[Hg] [facility] Systolic blood 157 mm[Hg] 157 mm[Hg] [facility] Oxygen saturation 96 % 96 % [facility] Arterial blood [facility] by Pulse oximetry Body temperature 37.092546 37.226529 [facility] Respiratory rate 19 /min 19 /min [facility] Heart rate 78 /min 78 /min [facility] Diastolic blood 78 mm[Hg] 78 mm[Hg] [facility] Systolic blood 144 mm[Hg] 144 mm[Hg] [facility] Body temperature 36.327691 36.171341 [facility] Respiratory rate 19 /min 19 /min [facility] Oxygen saturation 98 % 98 % [facility] Arterial blood [facility] by Pulse oximetry Diastolic blood 87 mm[Hg] 87 mm[Hg] [facility] pressure Medical Center Systolic blood 145 mm[Hg] 145 mm[Hg] [facility] Body weight 100.024290 100.240524 kg [facility] Measured kg [facility] Body height 147.871216 147.319585 cm [facility] Body mass index 46.0 kg/m2 46.0 kg/m2 [facility] (BMI) [Ratio] Medical [facility] Oxygen saturation 97 % 97 % [facility] Arterial blood [facility] by Pulse oximetry Body temperature 35.755085 35.800767 [facility] Respiratory rate 18 /min 18 /min [facility] Heart rate 107 /min 107 /min [facility] Diastolic blood 93 mm[Hg] 93 mm[Hg] [facility] Systolic blood 144 mm[Hg] 144 mm[Hg] [facility] Body temperature 36.137307 36.469465 [facility] Respiratory rate 18 /min 18 /min [facility] Heart rate 110 /min 110 /min [facility] Diastolic blood 91 mm[Hg] 91 mm[Hg] [facility] Systolic blood 142 mm[Hg] 142 mm[Hg] [facility] Body weight 104.740802 104.985156 kg [facility] Measured kg Medical Center Body height 147.278773 147.804367 cm [facility] Body mass index 48.07 kg/m2 48.07 kg/m2 [facility] (BMI) [Ratio] Medical [facility] Body temperature 36.206892 36.759361 [facility] Respiratory rate 18 /min 18 /min [facility] Heart rate 115 /min 115 /min [facility] Diastolic blood 76 mm[Hg] 76 mm[Hg] [facility] Systolic blood 125 mm[Hg] 125 mm[Hg] [facility] Body weight 104.651975 104.108066 kg [facility] Measured kg Medical Center Body temperature 36.837595 36.604721 [facility] Respiratory rate 20 /min 20 /min [facility] Heart rate 109 /min 109 /min [facility] Body height 147.769881 147.354681 cm [facility] Diastolic blood 88 mm[Hg] 88 mm[Hg] [facility] pressure [facility] Center Systolic blood 142 mm[Hg] 142 mm[Hg] [facility] Body mass index 48.07 kg/m2 48.07 kg/m2 [facility] (BMI) [Ratio] Medical [facility] ter Body temperature 36.331436 36.188028 [facility] Respiratory rate 18 /min 18 /min [facility] Oxygen saturation 96 % 96 % [facility] Arterial blood [facility] by Pulse oximetry Heart rate 103 /min 103 /min [facility] Diastolic blood 106 mm[Hg] 106 mm[Hg] [facility] Systolic blood 159 mm[Hg] 159 mm[Hg] [facility] Body temperature 36.290183 36.412152 [facility] Respiratory rate 18 /min 18 /min [facility] Heart rate 91 /min 91 /min [facility] Diastolic blood 93 mm[Hg] 93 mm[Hg] [facility] Systolic blood 160 mm[Hg] 160 mm[Hg] [facility] Body weight 104.190274 104.566349 kg [facility] Measured kg Medical Center Oxygen saturation 99 % 99 % [facility] Arterial blood [facility] by Pulse oximetry Body height 149.741295 149.866803 cm [facility] Body mass index 46.4 kg/m2 46.4 kg/m2 [facility] (BMI) [Ratio] Medical [facility] Body temperature 36.977254 36.768175 [facility] Respiratory rate 19 /min 19 /min [facility] Heart rate 123 /min 123 /min [facility] Diastolic blood 88 mm[Hg] 88 mm[Hg] [facility] pressure [facility] Systolic blood 128 mm[Hg] 128 mm[Hg] [facility]
[2020-07-03 11:44] LABS: BASO % 0.9 % (0-2.0); EOS % 0.2 % (0-4.5); HEMATOCRIT 36.8 % (32.4-45.2); HEMOGLOBIN 11.2 GM/dL (10.7-15.3); LYMPH % 28.8 % (8-40); MCH 22.4 pg (25.7-33.7); MCHC 30.5 g/dl (32.0-36.0); MEAN CELL VOLUME 73.4 fl (80-96); MEAN PLT VOLUME 7.5 fl (7.5-11.1); MONO % 4.3 % (3.8-10.2); NEUT % 65.8 % (42.8-82.8); PLATELET COUNT 309 K/MM3 (134-434); RBC 5.01 M/mm3 (3.60-5.2); RDW 29.6 % (11.6-15.6); WHITE BLOOD COUNT 6.3 K/mm3 (4.0-10.0)
[2020-07-03 12:02] LABS: ALBUMIN 3.2 g/dl (3.4-5.0); BILIRUBIN,TOTAL 1.3 mg/dL (0.2-1); CALCIUM 9.1 mg/dL (8.5-10.1); CREATININE 0.7 mg/dL (0.55-1.3); POTASSIUM 3.7 mmol/L (3.5-5.1); TOT PROT 7.2 g/dl (6.4-8.2)
[2020-07-03 12:15] LABS: ANISOCYTOSIS 2+; MACROCYTOSIS 0; PLATELET ESTIMATE NORMAL
--- NOTE | 2020-07-03 13:06 | PDOC ---
Documentation entered by Buddy Wade SCRIBE, acting as scribe for Hudson Darnell MD. Hudson Darnell MD: This documentation has been prepared by the Mauro strong Angel, SCRIBE, under my direction and personally reviewed by me in its entirety. I confirm that the documentation accurately reflects all work, treatment, procedures, and medical decision making performed by me. Attending Attestation - Resident Resident Name: Sa Chantelira - ED Attending Attestation I have performed the following: I have examined & evaluated the patient, The case was reviewed & discussed with the resident, I agree w/resident's findings & plan, Exceptions are as noted - HPI HPI: 07/03/20 11:30 The patient is a 44 year old female with a significant past medical history of Anemia, PSH of gastric sleeve, cholecystectomy, SBO, R oophorectomy who presents to the ED with 1 week of diarrhea. The patient states she has been going to the bathroom about 4 times every hour with loose stools. The patient is also complaining of diffuse abdominal pain, as well as nausea during her bowel movements. Patient endorses multiple episodes of small volume clear/mucusy vomiting. The patient states she does not remember eating anything out of the ordinary before her symptoms began. Since her symptoms began the patient has been unable to tolerate food intake. The patient states she lives alone so she has not had any sick contacts. Patient denies SOB, fever/chills, flank pain, urinary symptoms, or chest pain. - Physicial Exam PE: 07/03/20 13:04 GENERAL: The patient is awake, alert, and fully oriented, Nontoxic - in no acute distress. HEAD: Normocephalic, atraumatic. EYES: extraocular movements intact, sclera anicteric, conjunctiva clear. ENT: Normal voice, Moist mucous membranes. NECK: Normal range of motion, supple LUNGS: Breath sounds equal, clear to auscultation bilaterally. No wheezes, no rhonchi, no rales. HEART: tachycardic, normal S1 and S2 without murmur, rub or gallop. ABDOMEN: Soft, nontender, No guarding, no rebound. No CVA tenderness EXTREMITIES: Normal range of motion, no edema. NEUROLOGICAL: No facial assymetry, Normal speech, PSYCH: Normal mood, normal affect. SKIN: Warm, Dry, normal turgor, - Medical Decision Making 07/03/20 13:04 Suspect likely gastroenteritis, the patient is otherwise well-appearing, however she is noted to be tachycardic I suspect this may be secondary to dehydration or discomfort. Her abdomen is soft, there is no focality no rebound or guarding. After hydration the patient's heart rate has improved she does have some slightly elevated LFTs, will obtain a right upper quadrant ultrasound to eval for liver pathology. Will also p.o. challenge the patient 07/03/20 13:06 pt tom dowling on reassesment, abd soft nontender Discharge - Follow up/Referral Referrals: Philipp Gonzalez MD [Primary Care Provider] - - Patient Discharge Instructions - Post Discharge Activity
--- NOTE | 2020-07-03 13:34 | EKG ---
Test Reason : Blood Pressure : / mmHG Vent. Rate : 099 BPM Atrial Rate : 099 BPM P-R Int : 146 ms QRS Dur : 074 ms QT Int : 336 ms P-R-T Axes : 053 000 041 degrees QTc Int : 431 ms NORMAL SINUS RHYTHM MINIMAL VOLTAGE CRITERIA FOR LVH, MAY BE NORMAL VARIANT BORDERLINE ECG WHEN COMPARED WITH ECG OF 14-JUL-2018 19:04, NO SIGNIFICANT CHANGE WAS FOUND Confirmed by TYRESE JENNINGS, KIN ([id number]) on 07/03/2020 1:33:50 PM Referred By: Confirmed By:KIN XIONG MD
[2020-07-03 15:09] LABS: PH,URINE 5.5 (5.0-8.0); URINE APPEARANCE CLEAR; URINE BILIRUBIN NEGATIVE (NEGATIVE); URINE COLOR YELLOW; URINE GLUCOSE (UA) NEGATIVE (NEGATIVE); URINE KETONE TRACE (NEGATIVE); URINE LEUK ESTERASE NEGATIVE (NEGATIVE); URINE NITRITE NEGATIVE (NEGATIVE); URINE PROTEIN NEGATIVE (NEGATIVE); URINE UROBILINOGEN 0.2 mg/dL (0.2-1.0)
[2020-07-03 15:57] VITALS: BP 136/78; PULSE 88; TEMP 97.8
== END 2020-07-03 15:57 | disposition home or self-care (01) ==
LOC: JER 10:10
PROC: 3E0333Z Introduction of Anti-inflammatory into Peripheral Vein, Percutaneous Approach (ICD-10-PCS; principal; 2020-07-03)
PROC: 3E033GC Introduction of Other Therapeutic Substance into Peripheral Vein, Percutaneous Approach (ICD-10-PCS; 2020-07-03)
DX: R11.2 Nausea with vomiting, unspecified (principal); R19.7 Diarrhea, unspecified
CPT/HCPCS: 36415; 80053; 81003; 83605; 83690; 84703; 85025; 86850; 86900; 86901; 87086; 93005; 93010; 99285-25; J0131